=== PATIENT | male | born 1945 | race Caucasian/White ===

== ENCOUNTER 2017-03-16 11:37 | Observation (INO) | payer MEDICARE, BC ==
[~2017-03-16] VITALS: Ht 177.8 cm; Wt 88.6 kg
[2017-03-16] VITALS (9 sets, daily range): BP systolic 113–150; BP diastolic 68–101; PULSE 80–93; RESP 16–22; TEMP 97.8–98.1; O2SAT 94–98
--- NOTE | 2017-03-16 11:41 | PD ---
HPI Chief Complaint: near syncope Time Seen by Provider: 11:41 Travel History International Travel<30 days: No Contact w/Intl Traveler<30days: No Traveled to known affect area: No History of Present Illness HPI 71-year-old male came to the emergency room brought by EMS for a near syncopal episode while he was in the waiting room of his doctor's office. His blood glucose level was 120. His will arrive shortly afterwards gave the history that she was with him in the waiting room and patient got up to go to the bathroom when he seemed like he was going to pass out and started to fall. She caught him and prevented him from falling on the ground. She had to sit him down on the chair again. That's when the office staff called 911. Patient says that he feels fine right now. The says that this has happened couple times in past 1 year. He has resisted from coming to the emergency room in the past. Patient has history of pacemaker and defibrillator that was put in 2 and half years ago. His current cardiologists in [facility] is Dr. Caicedo. His last device check was 6 weeks ago and at that time they were told that everything was okay. Patient denies of any chest pain or shortness of breath. He denies of any true syncopal episode. Vital signs are relatively stable. [facility] Past Medical History Narrative Medical List of his past medical, surgical, social and family history is reviewed from the nursing note. Social History Tobacco Use: No Allergies-Medications (Allergen,Severity, Reaction): Coded Allergies: bacitracin (Verified Allergy, Mild, Rash, 03/16/17) neomycin (Verified Allergy, Mild, Rash, 03/16/17) polymyxin B (Verified Allergy, Mild, Rash, 03/16/17) Comments List of his allergies reviewed from the nursing note. Reported Meds & Prescriptions Reported Meds & Active Scripts Active Reported Crestor (Rosuvastatin Calcium) 10 Mg Tab 10 Mg PO HS Eliquis (Apixaban) 5 Mg Tab 5 Mg PO BID Oxycodone (Oxycodone HCl) 10 Mg Tab 10 Mg PO Q8HR Cymbalta DR (Duloxetine HCl) 30 Mg Capdr 30 Mg PO BID Doxycycline (Doxycycline (Monohydrate)) 100 Mg Cap 100 Mg PO BID Lasix (Furosemide) 20 Mg Tab 20-40 Mg PO DAILY STRENTH DEPENDS ON WEIGHT Amiodarone (Amiodarone HCl) 200 Mg Tab 200 Mg PO DAILY Bethanechol 25 Mg Tab 12.5 Mg PO QID Protonix (Pantoprazole Sodium) 40 Mg Tab 40 Mg PO DAILY Turmeric (Turmeric (Curcuma Longa) (Bulk) 100 % Pow PO DAILY 1 TEASPOONFUL MIXED INTO PASTE Green Tea (Green Tea [place] Extract) 1 Each Capsule 2 Cap PO DAILY Fish Oil 1200 mg ([place]-3 Fatty Acids) 360 Mg-1,200 Mg Cap 1,200 Mg PO DAILY Narrative Medication List of his home medications reviewed from the nursing note. Review of Systems Except as stated in HPI: all other systems reviewed are Neg Cardiovascular: Positive: Syncope Physical Exam Narrative GENERAL: Awake, alert, elderly, no obvious distress SKIN: Focused skin assessment warm/dry. HEAD: Atraumatic. Normocephalic. EYES: Pupils equal and round. No scleral icterus. No injection or drainage. ENT: No nasal bleeding or discharge. Mucous membranes pink and moist. NECK: Trachea midline. No JVD. CARDIOVASCULAR: Regular rate and rhythm. No murmur appreciated. RESPIRATORY: No accessory muscle use. Clear to auscultation. Breath sounds equal bilaterally. GASTROINTESTINAL: Abdomen soft, non-tender, nondistended. Hepatic and splenic margins not palpable. MUSCULOSKELETAL: No obvious deformities. No clubbing. No cyanosis. No edema. NEUROLOGICAL: Awake and alert. No obvious cranial nerve deficits. Motor grossly within normal limits. Normal speech. PSYCHIATRIC: Appropriate mood and affect; insight and judgment normal. Data Data Last Documented VS Orders Orders Electrocardiogram (03/16/17 11:44) Basic Metabolic Panel (Bmp) (03/16/17 11:44) Complete Blood Count With Diff (03/16/17 11:44) Magnesium (Mg) (03/16/17 11:44) Prothrombin Time / Inr (Pt) (03/16/17 11:44) Troponin I (03/16/17 11:44) Chest, Single Ap (03/16/17 11:44) Ecg Monitoring (03/16/17 11:44) Bilateral Bp Monitoring (03/16/17 11:44) Iv Access Insert/Monitor (03/16/17 11:44) Oximetry (03/16/17 11:44) Oxygen Administration (03/16/17 11:44) Sodium Chloride 0.9% Flush (Ns Flush) (03/16/17 11:45) Orthostatic Vital Signs (03/16/17 11:57) Admit Order (Ed Use Only) (03/16/17 13:07) Labs Laboratory Tests Test 03/16/17 11:45 03/16/17 11:46 White Blood Count 6.2 TH/MM3 Red Blood Count 5.91 MIL/MM3 Hemoglobin 17.1 GM/DL Hematocrit 51.6 % Mean Corpuscular Volume 87.2 FL Mean Corpuscular Hemoglobin 28.9 PG Mean Corpuscular Hemoglobin Concent 33.1 % Red Cell Distribution Width 14.7 % Platelet Count 180 TH/MM3 Mean Platelet Volume 8.5 FL Neutrophils (%) (Auto) 60.0 % Lymphocytes (%) (Auto) 23.4 % Monocytes (%) (Auto) 10.9 % Eosinophils (%) (Auto) 5.2 % Basophils (%) (Auto) 0.5 % Neutrophils # (Auto) 3.7 TH/MM3 Lymphocytes # (Auto) 1.4 TH/MM3 Monocytes # (Auto) 0.7 TH/MM3 Eosinophils # (Auto) 0.3 TH/MM3 Basophils # (Auto) 0.0 TH/MM3 CBC Comment DIFF FINAL Differential Comment Prothrombin Time 11.7 SEC Prothromb Time International Ratio 1.1 RATIO Blood Urea Nitrogen 17 MG/DL Creatinine 1.33 MG/DL Random Glucose 102 MG/DL Calcium Level 9.4 MG/DL Magnesium Level 2.2 MG/DL Sodium Level 140 MEQ/L Potassium Level 4.3 MEQ/L Chloride Level 106 MEQ/L Carbon Dioxide Level 26.1 MEQ/L Anion Gap 8 MEQ/L Estimat Glomerular Filtration Rate 53 ML/MIN Troponin I 0.07 NG/ML [facility] Medical Decision Making Medical Screen Exam Complete: Yes Emergency Medical Condition: Yes Medical Record Reviewed: Yes Interpretation(s) Twelve-lead EKG was reviewed by me. Paced rhythm. Heart rate of 90 bpm. Differential Diagnosis Arrhythmia, electrolyte abnormality, ACS Narrative Course 1:27 PM patient has slight elevation of his troponin. Chest x-ray suggestive of cardiomegaly. [employer] business process representative was called to interrogate the device and as per him patient has underlying A. fib and a flutter. His told me that patient had cardiac ablation done twice for his a flutter. Patient is also on amiodarone 200 mg twice a day among other medications. He is on Eliquis as well for his A. fib. However because of the elevated troponin under the circumstances I would like to admit him and have his cardiology consult. I discussed this with the residents who are the admitting team and they have accepted the admission. I explained this in details to the patient and his and answered all the questions to the best of my ability. Procedures EKG Prior to Arrival: Yes Diagnosis Primary Impression: Near syncope Additional Impressions: Elevated troponin I level Atrial fibrillation Qualified Codes: I48.1 - Persistent atrial fibrillation Admitting Information Admitting Physician Requests: Observation Mariangel Muller MD Mar 16, 2017 11:41
[2017-03-16] MEDS ORDERED: SODIUM CHLORIDE 0.9% FLUSH 10 ML FLUSH IVF PRN (11:45)
[2017-03-16 12:16] LABS: AUTOMATED NEUTROPHIL # 3.7 TH/MM3 (1.8-7.7); BASOPHIL % 0.5 % (0.0-2.0); EOSINOPHIL # 0.3 TH/MM3 (0-0.4); EOSINOPHIL % 5.2 % (0.0-4.0); HEMATOCRIT 51.6 % (39.0-51.0); HEMO FLAGS DIFF FINAL; LYMPH % 23.4 % (9.0-44.0); LYMPHOCYTE # 1.4 TH/MM3 (1.0-4.8); MEAN CELL VOLUME 87.2 FL (80.0-100.0); MEAN CORPUSCULAR HEMOGLOBIN 28.9 PG (27.0-34.0); MEAN CORPUSCULAR HGB CONC 33.1 % (32.0-36.0); MONO % 10.9 % (0.0-8.0); PLATELET COUNT 180 TH/MM3 (150-450); RED BLOOD COUNT 5.91 MIL/MM3 (4.50-5.90); RED CELL DISTRIBUTION WIDTH 14.7 % (11.6-17.2); WHITE BLOOD COUNT 6.2 TH/MM3 (4.0-11.0)
[2017-03-16 12:21] LABS: INTERNATIONAL NORMALIZED RATIO 1.1 RATIO; PROTHROMBIN TIME - PATIENT 11.7 SEC (9.8-11.6)
[2017-03-16] MEDS ORDERED: CYMB30CA PO (12:34)
[2017-03-16] MEDS ORDERED: APIX5TAB PO (12:34)
[2017-03-16] MEDS ORDERED: FURO1TAB62 PO (12:34)
[2017-03-16] MEDS ORDERED: OXYC-395 PO (12:34)
[2017-03-16] MEDS ORDERED: ROSU10 PO (12:34)
[2017-03-16] MEDS ORDERED: AMIO200T PO (12:34)
[2017-03-16] MEDS ORDERED: TURMPOW PO (12:34)
[2017-03-16] MEDS ORDERED: DOXY1CAP91 PO (12:34)
[2017-03-16] MEDS ORDERED: BETH25TA2 PO (12:34)
[2017-03-16] MEDS ORDERED: PROT40TA PO (12:34)
[2017-03-16] MEDS ORDERED: FISH1200 PO (12:34)
[2017-03-16] MEDS ORDERED: GREE150C PO (12:34)
[2017-03-16 12:37] LABS: BICARBONATE 26.1 MEQ/L (21.0-32.0); MAGNESIUM 2.2 MG/DL (1.5-2.5)
[2017-03-16 12:42] LABS: POTASSIUM 4.3 MEQ/L (3.5-5.1)
--- NOTE | 2017-03-16 12:50 | RADRPT ---
EXAM DATE/TIME: 03/16/2017 12:17 [facility] COMPARISON: No previous studies available for comparison. INDICATIONS : Syncope, rapid heart rate. MEDICAL HISTORY : Myocardial infarction. SURGICAL HISTORY : Pacemaker. ENCOUNTER: Initial ACUITY: 1 day PAIN SCORE: 0/10 LOCATION: Bilateral chest FINDINGS: Heart is mildly enlarged. Postsurgical changes following CABG are noted. AICD is in place. Mild pleural parenchymal opacity seen along the left heart border suggesting postsurgical scarring. Lungs are hypoaerated but otherwise clear. Stimulating device overlies the mid thoracic spine. CONCLUSION: Mild cardiomegaly status post open heart surgery. Mild pleural-parenchymal scarring left base. AICD. No acute cardiopulmonary process. Kaushik Johnson MD on March 16, 2017 at 12:47 Board Certified Radiologist. This report was verified electronically.
[2017-03-16] MEDS ORDERED: APIXABAN 5 MG TABLET PO SCH (13:30)
[2017-03-16] MEDS ORDERED: DOXYCYCLINE 100 MG PO SCH (13:30)
--- NOTE | 2017-03-16 13:58 | HHI.HP ---
[facility] Service Family Medicine Primary Care Physician Derrick aDi MD Admission Diagnosis near syncope, elevated troponin Diagnoses: International Travel<30 Days: No Contact w/Intl Traveler<30days: No Known Affected Area: No History of Present Illness 71 yr old M w/ PMHx of cardiac amyloidosis, pacemaker, defibrillator, complex regional pain syndrome, aortic valve replacement and CABG x2, presents to the ED for near syncope. Accompanied by , who provides most of the history. Reports that they were at the neurologists today for a check-up of his spinal stimulator when the witnessed patient nearly falling as he was trying to stand up and go to the bathroom. She was able to catch him during the incident. He denies LOC or head trauma. He reports feeling dizzy, sweaty, and wobbly for a couple of minutes during the episode. He also endorses feeling weak and loss of balance. He was immediately taken to the ER via EMT. He recently had an endoscopy done yesterday for GERD. He has been off his Eliquis since last . is a nurse and she noticed that patient had irregular rhythm upon auscultation. Patient endorses nausea and dry heaving. He reports that he has had similar near syncope episodes in the past, twice this year. He denies CP , SOB, palpitations, visions changes, abdominal pain, and VELÁSQUEZ. PCP is Dr. Derrick Dai Review of Systems Constitutional: COMPLAINS OF: Diaphoretic episodes, DENIES: Fever, Weight loss , Chills, Change in appetite Eyes: DENIES: Blurred vision Ears, nose, mouth, throat: DENIES: Hearing loss, Vertigo Respiratory: DENIES: Shortness of breath Cardiovascular: DENIES: Chest pain, Palpitations Gastrointestinal: COMPLAINS OF: Nausea, DENIES: Abdominal pain, Vomiting Genitourinary: DENIES: Dysuria Musculoskeletal: DENIES: Muscle aches Hematologic/lymphatic: DENIES: Bruising Neurologic: DENIES: Abnormal gait, Headache Past Family Social History Past Medical History Cardiac Amyloidosis Complex Regional pain syndrome in knees umbilical hernia CKD HTN Past Surgical History 2 ablations-2015 Heart Surgery 2002, aortic valve replacement and CABG x2 Cataract surgery Appendectomy Tonsillectomy Vasectomy Defibrillator placed in 2014 for sustained VTs Spinal cord Decompression 2000 Lumbar Laminectomy 1984 Allergies: Coded Allergies: bacitracin (Verified Allergy, Mild, Rash, 03/16/17) neomycin (Verified Allergy, Mild, Rash, 03/16/17) polymyxin B (Verified Allergy, Mild, Rash, 03/16/17) Family History Father at 69, Heart disease and non-Hodgkin's lymphoma Mother at 96 of uknown cause Sister- heart disease Social History Lives with in [facility], Retired Former smoker, quit 44 years ago, smoked for 15 years 1ppd Past Drinker Denies Illicit Drug Use Physical Exam Vital Signs Vital Signs Date Time Temp Pulse Resp B/P (MAP) Pulse Ox O2 Delivery O2 Flow Rate FiO2 03/16/17 12:06 90 16 116/75 (89) 90 16 119/77 (91) 101 16 124/78 (93) 03/16/17 12:00 90 16 116/75 (89) 97 Nasal Cannula 2.00 03/16/17 11:57 90 16 150/101 (117) 98 03/16/17 11:54 90 Nasal Cannula 2.00 03/16/17 11:54 90 16 150/101 (117) 98 Nasal Cannula 2.00 03/16/17 11:54 90 16 150/101 (117) 98 Nasal Cannula 2.00 Physical Exam GENERAL: pleasant elderly man, lying in bed, in NAD SKIN: No rashes, ecchymoses or lesions. Cool and dry. HEAD: Atraumatic. Normocephalic. EYES: PERRLA ENT: Throat clear NECK: Trachea midline. No JVD or lymphadenopathy. Supple, nontender, no meningeal signs. CARDIOVASCULAR: Regular rate and rhythm without murmurs, gallops, or rubs. No carotid bruits present. RESPIRATORY: Clear to auscultation. Breath sounds equal bilaterally. No wheezes , rales, or rhonchi. GASTROINTESTINAL: Abdomen soft, non-tender, nondistended. No hepato-splenomegaly , or palpable masses. No guarding. MUSCULOSKELETAL: Extremities without clubbing, cyanosis, or edema. NEUROLOGICAL: Awake and alert. Oriented x3, negative pronator drift, normal [id number] exam Laboratory Laboratory Tests Test 03/16/17 11:45 03/16/17 11:46 White Blood Count 6.2 Red Blood Count 5.91 Hemoglobin 17.1 Hematocrit 51.6 Mean Corpuscular Volume 87.2 Mean Corpuscular Hemoglobin 28.9 Mean Corpuscular Hemoglobin Concent 33.1 Red Cell Distribution Width 14.7 Platelet Count 180 Mean Platelet Volume 8.5 Neutrophils (%) (Auto) 60.0 Lymphocytes (%) (Auto) 23.4 Monocytes (%) (Auto) 10.9 Eosinophils (%) (Auto) 5.2 Basophils (%) (Auto) 0.5 Neutrophils # (Auto) 3.7 Lymphocytes # (Auto) 1.4 Monocytes # (Auto) 0.7 Eosinophils # (Auto) 0.3 Basophils # (Auto) 0.0 CBC Comment DIFF FINAL Differential Comment Prothrombin Time 11.7 Prothromb Time International Ratio 1.1 Blood Urea Nitrogen 17 Creatinine 1.33 Random Glucose 102 Calcium Level 9.4 Magnesium Level 2.2 Sodium Level 140 Potassium Level 4.3 Chloride Level 106 Carbon Dioxide Level 26.1 Anion Gap 8 Estimat Glomerular Filtration Rate 53 Troponin I 0.07 Result Diagram: 03/16/17 1145 03/16/17 1146 Caprini VTE Risk Assessment Caprini VTE Risk Assessment: Mod/High Risk (score >= 2) Caprini Risk Assessment Model Point Value = 1 Point Value = 2 Point Value = 3 Point Value = 5 Age 41-60 Minor surgery BMI > 25 kg/m2 Swollen legs Varicose veins or History of unexplained or recurrent spontaneous Oral contraceptives or hormone replacement Sepsis (< 1 month) Serious lung disease, including pneumonia (< 1 month) Abnormal pulmonary function Acute myocardial infarction Congestive heart failure (< 1 month) History of inflammatory bowel disease Medical patient at bed rest Age 61-74 Arthroscopic surgery Major open surgery (> 45 min) Laparoscopic surgery (> 45 min) Malignancy Confined to bed (> 72 hours) Immobilizing plaster cast Central venous access Age >= 75 History of VTE Family history of VTE Factor V Leiden Prothrombin [id number] Lupus anticoagulant Anticardiolipin antibodies Elevated serum homocysteine Heparin-induced thrombocytopenia Other congenital or acquired thrombophilia Stroke (< 1 month) Elective arthroplasty Hip, pelvis, or leg fracture Acute spinal cord injury (< 1 month) Prophylaxis Regimen Total Risk Factor Score Risk Level Prophylaxis Regimen 0-1 Low Early ambulation 2 Moderate Order ONE of the following: *Sequential Compression Device (SCD) *Heparin 5000 units SQ BID 3-4 Higher Order ONE of the following medications: *Heparin 5000 units SQ TID *Enoxaparin/Lovenox 40 mg SQ daily (WT < 150 kg, CrCl > 30 mL/min) *Enoxaparin/Lovenox 30 mg SQ daily (WT < 150 kg, CrCl > 10-29 mL/min) *Enoxaparin/Lovenox 30 mg SQ BID (WT < 150 kg, CrCl > 30 mL/min) AND/OR *Sequential Compression Device (SCD) 5 or more Highest Order ONE of the following medications: *Heparin 5000 units SQ TID (Preferred with Epidurals) *Enoxaparin/Lovenox 40 mg SQ daily (WT < 150 kg, CrCl > 30 mL/min) *Enoxaparin/Lovenox 30 mg SQ daily (WT < 150 kg, CrCl > 10-29 mL/min) *Enoxaparin/Lovenox 30 mg SQ BID (WT < 150 kg, CrCl > 30 mL/min) AND *Sequential Compression Device (SCD) Assessment and Plan Assessment and Plan 71 yr old man w/ PMHx of cardiac amyloid, CAD, aortic valve replacement, paroxysmal atrial flutter, paroxysmal ventricular tachycardia s/p AICD implant 2 years ago admitted for observation and work-up of near syncope. Code Status Full Code Discussed Condition With Dr. Roach and Dr. Lynne Problem List: (1) Near syncope ICD Codes: R55 - Syncope and collapse Status: Acute Plan: Several episodes in the past for near syncope. CXR revealed no acute cardiopulmonary process. * Cardiology consulted, appreciate recs * mildly elevated troponin level 0.07, repeat troponin in the AM * carotid US revealed calcified and noncalcified plaque in both carotid systems , no findings of significant stenosis * cardiac telemetry/monitoring * continue home meds: amiodarone, carvedilol, crestor * If patient is stable, possible discharge in the AM (2) Elevated troponin I level ICD Codes: R74.8 - Abnormal levels of other serum enzymes Status: Acute Plan: please see plan above (3) Atrial fibrillation ICD Codes: I48.91 - Unspecified atrial fibrillation Status: Acute Plan: Continue Eliquis 5mg PO daily (4) Nutrition, metabolism, and development symptoms ICD Codes: R63.8 - Other symptoms and signs concerning food and fluid intake Plan: Diet: Heart Healthy Fluids: not indicated at this time vitals q4h, monitor I & Os Problem Qualifiers (1) Atrial fibrillation: Qualified Codes: I48.1 - Persistent atrial fibrillation Yanelis Silva MD R1 Mar 16, 2017 13:58
[2017-03-16] MEDS ORDERED: ACETAMINOPHEN 325 MG TAB PO PRN (14:00)
[2017-03-16] MEDS ORDERED: SENNOSIDES 8.6 MG TAB PO PRN (14:00)
[2017-03-16] MEDS ORDERED: MAGNESIUM HYDROXIDE SUSP 30 ML CUP PO PRN (14:00)
[2017-03-16] MEDS ORDERED: NALOXONE HCL 0.4 MG/ML AMP IV PUSH PRN (14:00)
[2017-03-16] MEDS ORDERED: ONDANSETRON HCL 4 MG/2 ML VIAL IVP PRN (14:00)
[2017-03-16] MEDS ORDERED: LACTULOSE SYRUP 20 GM/30 ML CUP PO PRN (14:00)
[2017-03-16] MEDS ORDERED: BISACODYL 10 MG SUPP RECTAL PRN (14:00)
[2017-03-16] MEDS ORDERED: SODIUM CHLORIDE 0.9% FLUSH 10 ML FLUSH IV FLUSH PRN (14:00)
--- NOTE | 2017-03-16 14:03 | HHI.FPPN ---
Subjective Remarks Pt. seen, examined and discussed with Drs. Silva and Maged. This is a 71 yo male seen with his who was at his neurologist's office this a.m., he stood up and got nauseated and got woozy and felt unsteady. [place] like he was going to pass out. reports a previous similar episode but he refused to be checked out at that time. He did not lose consciousness and was helped to sit. With his cardiac history, he was recommended to come to the ED. He has reportedly been in atrial flutter for the past several days. is primary history provider, knows all his medications and doses. Known to have cardiac amyloidosis, has a pacer/ defibrillator and a spinal cord stimulator for chronic regional pain syndrome. Dr. Caicedo is his percussion instrument tuner. Dr. Meehan is his primary care doctor. He sees the PA at [facility]. They are originally from [facility]. See H&P for this admission for additional historical details, including past, family, social history and ROS at the time of admission. Objective Vitals Vital Signs Date Time Temp Pulse Resp B/P (MAP) Pulse Ox O2 Delivery O2 Flow Rate FiO2 03/16/17 12:06 90 16 116/75 (89) 90 16 119/77 (91) 101 16 124/78 (93) 03/16/17 12:00 90 16 116/75 (89) 97 Nasal Cannula 2.00 03/16/17 11:57 90 16 150/101 (117) 98 03/16/17 11:54 90 Nasal Cannula 2.00 03/16/17 11:54 90 16 150/101 (117) 98 Nasal Cannula 2.00 03/16/17 11:54 90 16 150/101 (117) 98 Nasal Cannula 2.00 Result Diagram: 03/16/17 1145 03/16/17 1146 Other Results Laboratory Tests Test 03/16/17 11:45 03/16/17 11:46 White Blood Count 6.2 TH/MM3 Red Blood Count 5.91 MIL/MM3 Hemoglobin 17.1 GM/DL Hematocrit 51.6 % Mean Corpuscular Volume 87.2 FL Mean Corpuscular Hemoglobin 28.9 PG Mean Corpuscular Hemoglobin Concent 33.1 % Red Cell Distribution Width 14.7 % Platelet Count 180 TH/MM3 Mean Platelet Volume 8.5 FL Neutrophils (%) (Auto) 60.0 % Lymphocytes (%) (Auto) 23.4 % Monocytes (%) (Auto) 10.9 % Eosinophils (%) (Auto) 5.2 % Basophils (%) (Auto) 0.5 % Neutrophils # (Auto) 3.7 TH/MM3 Lymphocytes # (Auto) 1.4 TH/MM3 Monocytes # (Auto) 0.7 TH/MM3 Eosinophils # (Auto) 0.3 TH/MM3 Basophils # (Auto) 0.0 TH/MM3 CBC Comment DIFF FINAL Differential Comment Prothrombin Time 11.7 SEC Prothromb Time International Ratio 1.1 RATIO Blood Urea Nitrogen 17 MG/DL Creatinine 1.33 MG/DL Random Glucose 102 MG/DL Calcium Level 9.4 MG/DL Magnesium Level 2.2 MG/DL Sodium Level 140 MEQ/L Potassium Level 4.3 MEQ/L Chloride Level 106 MEQ/L Carbon Dioxide Level 26.1 MEQ/L Anion Gap 8 MEQ/L Estimat Glomerular Filtration Rate 53 ML/MIN Troponin I 0.07 NG/ML Imaging Last 24 hours Impressions Chest X-Ray 03/16/17 1144 Signed Impressions: Service Date/Time: Thursday, March 16, 2017 12:17 - CONCLUSION: Mild cardiomegaly status post open heart surgery. Mild pleural-parenchymal scarring left base. AICD. No acute cardiopulmonary process. Kaushik Johnson MD Objective Remarks O. CONSTITUTIONAL/GEN: normally nourished, in NAD. Alert, pleasant and interactive. EYES: conjunctiva normal, PERRLA, EOMI. ENT: Mouth and pharynx normal. MM moist. NECK: thyroid midline, carotids symmetrical without bruit. LUNGS: clear A-P, respiratory effort is normal. CARDIOVASCULAR: Regular paced rhythm without murmur or gallop. No significant edema. GI/ABD: soft without masses, without organomegaly. : no CVA tenderness NEURO: No focal deficits. Finger to nose intact bilaterally. No tremor. DTRs intact. SKIN: color normal, no rashes noted. Very tanned extremities. HEME/LYMPH: no bruising, petechia or significant adenopathy MUSC: back is normal in appearance. Extremities are normal in appearance except for some superficial abrasions. PSYCH/MENTAL STATUS: Alert and oriented x 3. A/P Assessment and Plan 71 yo male with significant cardiac history with atrial flutter and an episode of near-syncope. Discharge Planning Case management consultation. Attending Attestation Patient seen and examined. Case reviewed and discussed with the resident team. Agree with plan of care as discussed with me and documented in the resident note. Matilde Roach MD Mar 16, 2017 14:03
--- NOTE | 2017-03-16 14:44 | RADRPT ---
EXAM DATE/TIME: 03/16/2017 14:02 [facility] COMPARISON: No previous studies available for comparison. INDICATIONS : Syncope. MEDICAL HISTORY : Hypercholesterolemia. Hypertension. Anxiety. Anticoagulant therapy. SURGICAL HISTORY : Tonsillectomy. Pacemaker. Appendectomy. CABG. Valve replacement. Spinal defib. Back surgeries. Vasect carter. ENCOUNTER: Initial ACUITY: 1 day PAIN SCORE: 0/10 LOCATION: Bilateral neck PEAK SYSTOLIC VELOCITIES (cm/sec): ICA/CCA RATIO: Right: 1.1 Left: 0.9 ICA: Right: 68 Left: 61 CCA: Right: 62 Left: 65 ECA: Right: 77 Left: 87 VERTEBRAL: Right: 32 antegrade Left: 34 antegrade Elevated flow velocities and ICA/CCA ratios have been found to correlate with increased degrees of vessel stenosis, calculated as percentage of diameter relative to a normal segment of distal ICA/CCA FINDINGS: RIGHT CAROTID: Calcified and noncalcified plaque in the carotid bulb extending into the internal. The waveforms are within normal limits. LEFT CAROTID: Minimal calcified and some noncalcified plaque in the carotid bulb extending up into the internal. T he waveforms are within normal limits. VERTEBRAL ARTERIES: Antegrade flow is seen in both vertebral arteries. MISCELLANEOUS: None. CONCLUSION: 1. Calcified and noncalcified plaque in both carotid systems. 2. However, no sonographic or Doppler findings of a hemodynamically significant stenosis. Antegrade f low in both vertebral arteries. Teddy Wilhelm MD on March 16, 2017 at 14:40 Board Certified Radiologist. This report was verified electronically.
--- NOTE | 2017-03-16 14:46 | EKG ---
Date Performed: 03/16/2017 Time Performed: 11:44:08 PTAGE: 71 years EKG: Baseline artifact present ELECTRONIC VENTRICULAR PACEMAKER ABNORMAL RHYTHM ECG INTERPRETATI ON BASED ON A DEFAULT AGE OF 40 YEARS NO PREVIOUS TRACING DOCTOR: Magdi Johnson Interpretating Date/Time 03/16/2017 14:45:20
[2017-03-16] MEDS ORDERED: PILL SPLITTER OTHER PRN (15:00)
[2017-03-16] MEDS: AMIODARONE 200 MG TAB PO SCH (15:15)
[2017-03-16] MEDS: DOCUSATE SODIUM 50 MG/SENNA 8.6 MG TAB PO SCH ×2 (15:15→21:52)
[2017-03-16] MEDS: SODIUM CHLORIDE 0.9% FLUSH 10 ML FLUSH IV FLUSH SCH ×2 (15:16→21:52)
[2017-03-16] MEDS: APIXABAN 5 MG TABLET PO SCH ×2 (16:52→21:52)
--- NOTE | 2017-03-16 17:44 | MB ---
cc: BENNY GARCIA HANSCY M.D. DATE OF CONSULTATION 03/16/17 REASON FOR CONSULTATION Near-syncope, abnormal troponin level HISTORY OF PRESENT ILLNESS The patient is a 71-year-old white male, followed in our office by Dr. Noam Caicedo, with a history of biopsy-proven cardiac amyloidosis, coronary artery disease, aortic valve disease, paroxysmal atrial flutter, paroxysmal ventricular tachycardia, esophageal strictures who was brought to the hospital after a near-syncopal episode. The patient was in his primary care physician's office today when he felt nauseated and felt the need to vomit. He tried to get up to go the bathroom but subsequently felt very lightheaded. He never lost consciousness completely. The episode lasted a few minutes. The patient states he had upper endoscopy recently with dilation of an esophageal stricture. He denies palpitations, angina, shortness of breath, pedal edema, paroxysmal nocturnal dyspnea, diarrhea, fevers. His oral intake recently has been relatively normal. PAST MEDICAL HISTORY 1. Cardiac amyloid demonstrated by endomyocardial biopsy 2014. 2. Coronary artery and aortic valve disease status post two-vessel bypass surgery and aortic valve replacement 10/14/2001. This was done in [place], [place]. The valve was a 25 mm porcine aortic valve prosthesis. The two bypass grafts were a left internal mammary artery to the LAD and vein graft to the ramus intermedius. His last heart catheterization was 2014 showing widely patent bypass grafts. 3. Paroxysmal atrial flutter status post ablation approximately 2012. 4. Ventricular tachycardia status post dual-chamber AICD implantation (St. Lexx) July 2014. 5. History of esophageal strictures status post dilation. 6. Reduced ejection fraction of 40-45% associated with severe concentric left ventricular hypertrophy by echo approximately 2014. MEDICATIONS Cardiac medications at home 1. Crestor 10 mg q.h.s. 2. Eliquis 5 mg b.i.d. 3. Furosemide 20-40 mg daily. 4. Amiodarone 200 mg daily. ALLERGIES NEOMYCIN POLYMYCIN BACITRACIN FAMILY HISTORY Noncontributory. SOCIAL HISTORY The patient denies any history of alcohol or tobacco abuse. REVIEW OF SYSTEMS As in the history of present illness otherwise negative or noncontributory. He also denies headache, visual changes, abdominal pain, melena, dyspepsia, bright red blood per rectum. PHYSICAL EXAMINATION VITAL SIGNS: His blood pressure 119/76 with a pulse of 93, respirations 22. GENERAL: He is a well-developed, well-nourished white male in no acute distress, HEENT: Jugular venous pressure is normal. Carotid pulses are 2+ bilaterally and without bruits. CHEST: Examination of the chest reveals clear lung theodore. CARDIAC: He has a regular rhythm and rate without S3, S4 or murmur. ABDOMEN: He has a soft, nontender abdomen. Bowel sounds are present. There is no definite hepatosplenomegaly. EXTREMITIES: No clubbing, cyanosis or edema. LABORATORY DATA Potassium 4.3, BUN 17, creatinine 1.33, troponin 0.07, INR 1.1, WBC 6.2, hemoglobin 17.1, platelets 180. IMAGING STUDIES Chest x-ray shows no acute disease. CARDIOLOGY STUDIES EKG shows atrial sensed ventricular paced rhythm. IMPRESSION Near syncopal episode in this 71-year-old white male with a history of cardiac amyloid, coronary artery disease, aortic valve replacement, paroxysmal atrial flutter, paroxysmal ventricular tachycardia status post AICD implant two years ago. Interrogation of his AICD does show he has had recurrent atrial flutter for the past five days, although with no elevations in his heart rate. There has been no evidence for recent ventricular tachyarrhythmias. I suspect his episode of near syncope may have been vasovagal mediated. He was nauseated at the time of the event. The atrial flutter in and of itself should not have caused near syncope, and he has been in atrial flutter a few days now. Apparently, his Eliquis has been held recently for recent GI endoscopic procedures. His thromboembolic risk is at least moderately elevated. Although he is asymptomatic with the recurrent atrial flutter, ablation could be considered in the future, particularly with his cardiac amyloid and reduced ejection fraction. The slightly elevated troponin level is nonspecific. There is no other evidence for acute coronary syndrome. He has had no recent angina. Apparently, cardiac catheterization a couple years ago showed widely patent bypass grafts. There is no evidence by exam for aortic valve replacement dysfunction. RECOMMENDATIONS 1. Check another set of cardiac enzymes in the morning. 2. If he remains clinically stable, consider discharge tomorrow. 3. We will review his office records to see if he has had any recent echocardiogram. MD THERESA Spring/ /4:26 PM /5:05 PM [email or web address]
[2017-03-16] MEDS: BETHANECHOL CHL 25 MG TAB PO SCH ×2 (19:35→21:51)
[2017-03-16] MEDS ORDERED: NON-FORMULARY DRUG (Rosuvastatin (Crestor) 10 MG) PO SCH (21:00)
[2017-03-16] MEDS ORDERED: ATORVASTATIN 20 MG TAB PO SCH (21:00)
[2017-03-16] MEDS: DOXYCYCLINE HYCLATE 100 MG CAP PO SCH (21:51)
[2017-03-16] MEDS: CARVEDILOL 3.125 MG TAB PO SCH (21:51)
[2017-03-17 00:06] VITALS: BP 137/88; PULSE 89; RESP 18; TEMP 97.7; O2SAT 95
[2017-03-17 03:23] VITALS: BP 130/83; PULSE 91; RESP 18; TEMP 97.4; O2SAT 95
[2017-03-17 03:44] VITALS: PULSE 90
--- NOTE | 2017-03-17 05:12 | EKG ---
Date Performed: 03/16/2017 Time Performed: 18:05:24 PTAGE: 71 years EKG: ELECTRONIC VENTRICULAR PACEMAKER ABNORMAL RHYTHM ECG No significant change from prior elect rocardiogram. PREVIOUS TRACING : 03/16/2017 11.44 DOCTOR: Magdi Johnson Interpretating Date/Time 03/17/2017 05:11:24
--- NOTE | 2017-03-17 07:36 | PD.CARD.PN ---
Subjective Subjective Remarks No CP, dyspnea, palpitations, dizziness, near syncope. Slept well. No nausea. Objective Medications Item Value Date Time Atorvastatin 20 mg 03/16/172099 Calcium HS/PO 03/16/172150 (Lipitor) Carvedilol 3.125 mg 03/16/17 2100 (Coreg) Q12HR/PO 03/16/172150 Apixaban 5 mg 03/16/17 1600 (Eliquis) BID/PO 03/16/172151 Amiodarone HCl 200 mg 03/16/17 1400 (Cordarone) DAILY/PO 03/16/171514 Current Medications Medications (Trade) Dose Ordered Sig/Rupal Route Start Time Stop Time Status Last Admin (Urecholine) 12.5 mg QID PO 03/16/17 18:00 03/16/17 21:51 (Cordarone) 200 mg DAILY PO 03/16/17 14:00 03/16/17 15:15 (NS Flush) 2 ml UNSCH PRN IV FLUSH 03/16/17 14:00 (NS Flush) 2 ml BID IV FLUSH 03/16/17 14:00 03/16/17 21:52 (Tylenol) 650 mg Q4H PRN PO 03/16/17 14:00 (Zofran Inj) 4 mg Q6H PRN IVP 03/16/17 14:00 (Narcan Inj) 0.4 mg UNSCH PRN IV PUSH 03/16/17 14:00 (Marleen-Colace) 1 tab BID PO 03/16/17 14:00 03/16/17 21:52 (Milk Of Magnesia Liq) 30 ml Q12H PRN PO 03/16/17 14:00 (Senokot) 17.2 mg Q12H PRN PO 03/16/17 14:00 (Dulcolax Supp) 10 mg DAILY PRN RECTAL 03/16/17 14:00 (Lactulose Liq) 30 ml DAILY PRN PO 03/16/17 14:00 (Pill Splitter) 1 ea UNSCH PRN OTHER 03/16/17 15:00 (Lipitor) 20 mg HS PO 03/16/17 21:00 03/16/17 21:51 (Vibramycin) 100 mg BID PO 03/16/17 21:00 03/16/17 21:51 (Eliquis) 5 mg BID PO 03/16/17 16:00 03/16/17 21:52 (Coreg) 3.125 mg Q12HR PO 03/16/17 21:00 03/16/17 21:51 (Roxicodone) 10 mg Q8H PRN PO 03/16/17 22:30 03/16/17 23:05 Vital Signs / I&O Vital Signs Date Time Temp Pulse Resp B/P (MAP) Pulse Ox O2 Delivery O2 Flow Rate FiO2 03/17/17 03:44 90 03/17/17 03:23 97.4 91 18 130/83 (99) 95 03/17/17 00:33 18 03/17/17 00:06 97.7 89 18 137/88 (104) 95 03/16/17 19:50 90 03/16/17 19:28 98.1 93 18 113/73 (86) 94 03/16/17 17:05 80 03/16/17 14:41 97.8 93 22 119/76 (90) 98 03/16/17 13:59 90 16 130/68 (88) 97 Nasal Cannula 2.00 03/16/17 12:06 90 16 116/75 (89) 90 16 119/77 (91) 101 16 124/78 (93) 03/16/17 12:00 90 16 116/75 (89) 97 Nasal Cannula 2.00 03/16/17 11:57 90 16 150/101 (117) 98 03/16/17 11:54 90 Nasal Cannula 2.00 03/16/17 11:54 90 16 150/101 (117) 98 Nasal Cannula 2.00 03/16/17 11:54 90 16 150/101 (117) 98 Nasal Cannula 2.00 I/O 03/16/17 03/16/17 03/16/17 03/17/17 03/17/17 03/17/17 07:00 15:00 23:00 07:00 15:00 23:00 Intake Total 480 ml Output Total 550 ml Balance -550 ml 480 ml Intake Oral 480 ml Output Urine Total 550 ml Physical Exam GENERAL: Well developed, well nourished. No acute distress. HEENT: Jugular venous pressure is normal. CHEST: Lungs clear to auscultation bilaterally. Unlabored respiratory effort. CARDIAC: Regular rate and rhythm without S3, S4, or murmur. ABDOMEN: Soft, nontender, no hepatosplenomegaly. Bowel sounds present. EXTREMITIES: No clubbing, cyanosis, or edema. Laboratory Laboratory Tests Test 03/16/17 11:45 03/16/17 11:46 White Blood Count 6.2 TH/MM3 Red Blood Count 5.91 MIL/MM3 Hemoglobin 17.1 GM/DL Hematocrit 51.6 % Mean Corpuscular Volume 87.2 FL Mean Corpuscular Hemoglobin 28.9 PG Mean Corpuscular Hemoglobin Concent 33.1 % Red Cell Distribution Width 14.7 % Platelet Count 180 TH/MM3 Mean Platelet Volume 8.5 FL Neutrophils (%) (Auto) 60.0 % Lymphocytes (%) (Auto) 23.4 % Monocytes (%) (Auto) 10.9 % Eosinophils (%) (Auto) 5.2 % Basophils (%) (Auto) 0.5 % Neutrophils # (Auto) 3.7 TH/MM3 Lymphocytes # (Auto) 1.4 TH/MM3 Monocytes # (Auto) 0.7 TH/MM3 Eosinophils # (Auto) 0.3 TH/MM3 Basophils # (Auto) 0.0 TH/MM3 CBC Comment DIFF FINAL Differential Comment Prothrombin Time 11.7 SEC Prothromb Time International Ratio 1.1 RATIO Blood Urea Nitrogen 17 MG/DL Creatinine 1.33 MG/DL Random Glucose 102 MG/DL Calcium Level 9.4 MG/DL Magnesium Level 2.2 MG/DL Sodium Level 140 MEQ/L Potassium Level 4.3 MEQ/L Chloride Level 106 MEQ/L Carbon Dioxide Level 26.1 MEQ/L Anion Gap 8 MEQ/L Estimat Glomerular Filtration Rate 53 ML/MIN Troponin I 0.07 NG/ML Imaging Last 24 hours Impressions Chest X-Ray 03/16/17 1144 Signed Impressions: Service Date/Time: Thursday, March 16, 2017 12:17 - CONCLUSION: Mild cardiomegaly status post open heart surgery. Mild pleural-parenchymal scarring left base. AICD. No acute cardiopulmonary process. Kaushik Johnson MD Assessment and Plan Problem List: (1) Near syncope ICD Codes: R55 - Syncope and collapse Status: Acute Plan: Stable overnight. No recurrent dizziness or near syncope. Suspect his episode of near syncope was vasovagal mediated event. Doubt recurrent paroxysmal atrial flutter caused the near syncope. No ventricular tachyarrhythmias seen on ICD interrogation. OK to discharge today if repeat troponin this morning not significantly elevated. (2) Paroxysmal atrial flutter ICD Codes: I48.92 - Unspecified atrial flutter Status: Acute Plan: ICD interrogation shows recurrent atrial flutter past 6 days. History of ablation about 3 years ago. Eliquis resumed. Follow up in office with Dr. Caicedo. Would consider repeat ablation as loss of sufficient atrial contribution to ventricular filling in the setting of his cardiac amyloid and severe LVH may result in considerable drop in cardiac output. (3) CAD (coronary artery disease) ICD Codes: I25.10 - Atherosclerotic heart disease of [place] coronary artery without angina pectoris Status: Chronic Plan: Clinically stable. No recent angina. History of CABG/AVR many years ago. Await repeat troponin level; if remains only slightly elevated, recommend no additional w/u. (4) Cardiac amyloidosis ICD Codes: E85.4 - Organ-limited amyloidosis; I43 - Cardiomyopathy in diseases classified elsewhere Status: Chronic Plan: Overall stable. No recent problems with CHF. Rec beta queenie therapy. Carvedilol begun yesterday. (5) History of aortic valve replacement ICD Codes: Z95.2 - Presence of prosthetic heart valve Status: Chronic Code Status full code Discussed Condition With patient and Problem Qualifiers (1) CAD (coronary artery disease): Qualified Codes: I25.10 - Atherosclerotic heart disease of [place] coronary artery without angina pectoris Navin Posey MD Mar 17, 2017 07:36
[2017-03-17 08:00] VITALS: BP 112/82; PULSE 90; RESP 18; TEMP 97.4; O2SAT 95
[2017-03-17] MEDS: AMIODARONE 200 MG TAB PO SCH (08:57)
[2017-03-17] MEDS: SODIUM CHLORIDE 0.9% FLUSH 10 ML FLUSH IV FLUSH SCH (08:57)
[2017-03-17] MEDS: BETHANECHOL CHL 25 MG TAB PO SCH (08:58)
[2017-03-17] MEDS: APIXABAN 5 MG TABLET PO SCH (08:58)
[2017-03-17] MEDS: DOCUSATE SODIUM 50 MG/SENNA 8.6 MG TAB PO SCH (08:58)
[2017-03-17] MEDS: DOXYCYCLINE HYCLATE 100 MG CAP PO SCH (08:58)
[2017-03-17] MEDS: CARVEDILOL 3.125 MG TAB PO SCH (08:58)
[2017-03-17] MEDS ORDERED: AMIODARONE 200 MG TAB PO SCH (09:00)
--- NOTE | 2017-03-17 09:30 | EKG ---
Date Performed: 03/17/2017 Time Performed: 00:15:03 PTAGE: 71 years EKG: Baseline artifact present ELECTRONIC VENTRICULAR PACEMAKER ABNORMAL RHYTHM ECG No significa nt change from prior electrocardiogram. PREVIOUS TRACING : 03/16/2017 18.05 DOCTOR: Magdi Johnson Interpretating Date/Time 03/17/2017 09:29:11
[2017-03-17 09:34] LABS: AUTOMATED NEUTROPHIL # 4.4 TH/MM3 (1.8-7.7); BASOPHIL % 0.6 % (0.0-2.0); EOSINOPHIL # 0.3 TH/MM3 (0-0.4); EOSINOPHIL % 4.9 % (0.0-4.0); HEMATOCRIT 49.7 % (39.0-51.0); HEMO FLAGS DIFF FINAL; LYMPH % 20.6 % (9.0-44.0); LYMPHOCYTE # 1.4 TH/MM3 (1.0-4.8); MEAN CORPUSCULAR HEMOGLOBIN 29.7 PG (27.0-34.0); MEAN CORPUSCULAR HGB CONC 33.7 % (32.0-36.0); MONO % 9.5 % (0.0-8.0); NEUT % 64.4 % (16.0-70.0); PLATELET COUNT 151 TH/MM3 (150-450); RED BLOOD COUNT 5.65 MIL/MM3 (4.50-5.90); RED CELL DISTRIBUTION WIDTH 14.6 % (11.6-17.2); WHITE BLOOD COUNT 6.8 TH/MM3 (4.0-11.0)
[2017-03-17 10:04] LABS: ANION GAP 5 MEQ/L (5-15); AST (GOT) 34 U/L (15-37); BICARBONATE 29.5 MEQ/L (21.0-32.0); BLOOD UREA NITROGEN 17 MG/DL (7-18); CHLORIDE 106 MEQ/L (98-107); GLOMERULAR FILTRATION RATE 54 ML/MIN (>89); POTASSIUM 4.3 MEQ/L (3.5-5.1); SODIUM (NA) 140 MEQ/L (136-145)
[2017-03-17 10:11] LABS: ALKALINE PHOSPHATASE 146 U/L (45-117); ALT (GPT) 52 U/L (12-78); TOTAL BILIRUBIN ADULT 0.7 MG/DL (0.2-1.0)
[2017-03-17 10:12] LABS: CREATINE KINASE 77 U/L (39-308)
--- NOTE | 2017-03-17 10:41 | HHI.DCPOC ---
Discharge Care Plan Diagnosis: (1) Near syncope (2) Elevated troponin I level (3) Cardiac amyloidosis (4) Paroxysmal atrial flutter Goals to Promote Your Health * To prevent worsening of your condition and complications * To maintain your health at the optimal level Directions to Meet Your Goals Take your medications as prescribed Follow your dietary instruction Follow activity as directed Keep your appointments as scheduled Take your immunizations and boosters as scheduled If your symptoms worsen call your PCP, if no PCP go to Urgent Care Center or Emergency Room Smoking is Dangerous to Your Health. Avoid second hand smoke Call the 24-hour hour crisis hotline for domestic abuse at Yanelis Silva MD R1 Mar 17, 2017 10:41
[2017-03-17 11:04] VITALS: PULSE 91
--- NOTE | 2017-03-17 11:46 | HHI.FPPN ---
Subjective Remarks No acute events overnight. Patient reports feeling better this morning. He is "ready to go home." Afebrile. VSS. He denies lightheadedness, fatigue, CP, and SOB. (Yanelis Silva MD R1) Objective Vitals Vital Signs Date Time Temp Pulse Resp B/P (MAP) Pulse Ox O2 Delivery O2 Flow Rate FiO2 03/17/17 11:04 91 03/17/17 08:00 97.4 90 18 112/82 (92) 95 03/17/17 03:44 90 03/17/17 03:23 97.4 91 18 130/83 (99) 95 03/17/17 00:33 18 03/17/17 00:06 97.7 89 18 137/88 (104) 95 03/16/17 19:50 90 03/16/17 19:28 98.1 93 18 113/73 (86) 94 03/16/17 17:05 80 03/16/17 14:41 97.8 93 22 119/76 (90) 98 03/16/17 13:59 90 16 130/68 (88) 97 Nasal Cannula 2.00 03/16/17 12:06 90 16 116/75 (89) 90 16 119/77 (91) 101 16 124/78 (93) 03/16/17 12:00 90 16 116/75 (89) 97 Nasal Cannula 2.00 03/16/17 11:57 90 16 150/101 (117) 98 03/16/17 11:54 90 Nasal Cannula 2.00 03/16/17 11:54 90 16 150/101 (117) 98 Nasal Cannula 2.00 03/16/17 11:54 90 16 150/101 (117) 98 Nasal Cannula 2.00 I/O 03/16/17 03/16/17 03/16/17 03/17/17 03/17/17 03/17/17 07:00 15:00 23:00 07:00 15:00 23:00 Intake Total 480 ml Output Total 550 ml Balance -550 ml 480 ml Intake Oral 480 ml Output Urine Total 550 ml (Yanelis Silva MD R1) Result Diagram: 03/17/1749 03/17/17 0849 Objective Remarks O. GENERAL: pleasant, lying in bed, in NAD SKIN: Warm and dry. HEAD: Normocephalic. EYES: No scleral icterus. No injection or drainage. NECK: Supple, trachea midline. No JVD or lymphadenopathy. CARDIOVASCULAR: Regular rate and rhythm without murmurs, gallops, or rubs. RESPIRATORY: Breath sounds equal bilaterally. No accessory muscle use. GASTROINTESTINAL: Abdomen soft, non-tender, nondistended. EXTREMITIES: No cyanosis, or edema. NEUROLOGICAL: Awake, alert, and oriented x 3. Non-focal. (Yanelis Silva MD R1) A/P Assessment and Plan 71 yr old man w/ PMHx of cardiac amyloid, CAD, aortic valve replacement, paroxysmal atrial flutter, paroxysmal ventricular tachycardia s/p AICD implant 2 years ago admitted for observation and work-up of near syncope. Discharge Planning Case management consultation. (Yanelis Silva MD R1) Attending Attestation Patient seen and examined. Case reviewed and discussed with the resident team. Agree with plan of care as discussed with me and documented in the resident note. (Matilde Roach MD) Problem List: (1) Near syncope ICD Codes: R55 - Syncope and collapse Status: Acute Plan: Several episodes in the past for near syncope. CXR revealed no acute cardiopulmonary process. * Cardiology consulted, appreciate recs * mildly elevated troponin level 0.07, repeat troponin 0.09 this AM * carotid US revealed calcified and noncalcified plaque in both carotid systems , no findings of significant stenosis * continue home meds: amiodarone, carvedilol, crestor * troponin not significantly elevated, patient is stable for discharge. Most likely vasovagal syncope. Will follow-up with nurse plastics. (2) Elevated troponin I level ICD Codes: R74.8 - Abnormal levels of other serum enzymes Status: Acute Plan: please see plan above (3) Atrial fibrillation ICD Codes: I48.91 - Unspecified atrial fibrillation Status: Acute Plan: Continue Eliquis 5mg PO daily (4) Nutrition, metabolism, and development symptoms ICD Codes: R63.8 - Other symptoms and signs concerning food and fluid intake Plan: Diet: Heart Healthy Fluids: not indicated at this time vitals q4h, monitor I & Os (Yanelis Silva MD R1) Problem Qualifiers (1) Atrial fibrillation: Qualified Codes: I48.1 - Persistent atrial fibrillation Yanelis Silva MD R1 Mar 17, 2017 11:46 Matilde Roach MD Mar 17, 2017 12:06
== END 2017-03-17 11:42 | disposition home or self-care (01) ==
LOC: NEPC 11:37 → NEDA 13:09 → NEPGCP 14:05
PROVIDERS: ADMIT Family Medicine; ATTEND Family Medicine
DX: R55 Syncope and collapse (principal); I48.1 Persistent atrial fibrillation; I48.92 Unspecified atrial flutter; E85.4 Organ-limited amyloidosis; I43 Cardiomyopathy in diseases classified elsewhere; I25.10 Atherosclerotic heart disease of native coronary artery without angina pectoris; I12.9 Hypertensive chronic kidney disease with stage 1 through stage 4 chronic kidney disease, or unspecified chronic kidney disease; N18.9 Chronic kidney disease, unspecified; K21.9 Gastro-esophageal reflux disease without esophagitis; K22.2 Esophageal obstruction; Z95.0 Presence of cardiac pacemaker; Z95.1 Presence of aortocoronary bypass graft; Z95.3 Presence of xenogenic heart valve; Z87.891 Personal history of nicotine dependence
CPT/HCPCS: 71010; 80048; 80053; 82550; 83735; 84484; 85025; 85610; 93005; 93880; 99285; G0378

== ENCOUNTER 2017-05-04 11:34 | Day surgery (SDC) | payer MEDICARE, BC ==
[~2017-05-04] VITALS: Ht 177.8 cm; Wt 91.5 kg
[~2017-05-04 11:34] MED LIST: AMIO200T PO; APIX5TAB PO; BETH25TA2 PO; CYMB30CA PO; DOXY1CAP91 PO; FISH1200 PO; FURO1TAB62 PO; GREE150C PO; OXYC-395 PO; PROT40TA PO; ROSU10 PO; TURMPOW PO
[2017-05-04] MEDS ORDERED: CHLORHEXIDINE GLUCONATE 2 % 1 PACK (2 CLOTHS) TOPICAL PRN (12:00)
[2017-05-04] MEDS ORDERED: LACTATED RINGER'S 1000 ML IV PRN (12:00)
[2017-05-04] MEDS ORDERED: PROPOFOL 200 MG/20 ML AMP IV ONE (12:00)
[2017-05-04] MEDS ORDERED: NEOSTIGMINE 5 MG/5 ML SYRINGE IV PUSH ONE (12:00)
[2017-05-04] MEDS ORDERED: PHENYLEPH/NS 1000 MCG/10 ML SYR IV ONE (12:00)
[2017-05-04] MEDS ORDERED: GLYCOPYRROLATE 1 MG/5 ML SYRINGE IV PUSH ONE (12:00)
[2017-05-04] MEDS ORDERED: LIDOCAINE HCL 1% PF 5 ML SYRINGE OTHER ONE (12:00)
[2017-05-04] MEDS ORDERED: ONDANSETRON HCL 4 MG/2 ML VIAL IV ONE (12:00)
[2017-05-04] MEDS ORDERED: SODIUM CHLORID 0.9% 500 ML IV PRN (12:00)
[2017-05-04] MEDS: SODIUM CHLORID 0.9% 500 ML INJ 500 ML IV SCH (12:00)
[2017-05-04] MEDS ORDERED: METOPROLOL TARTRATE 25 MG TAB PO PRN (12:00)
[2017-05-04] MEDS ORDERED: POVIDONE IODINE 5% (ANTISEPSIS KIT) 4 APPLICATIONS EACH NARE PRN (12:00)
[2017-05-04] MEDS ORDERED: LORazepam 1 MG TAB SL SCH (12:00)
[2017-05-04] MEDS ORDERED: ROCURONIUM INJ 50 MG/5 ML SYRINGE IV PUSH ONE (12:00)
[2017-05-04] MEDS ORDERED: DEXAMETHASONE SOD PHOS 4 MG/ML VIAL IV ONE (12:00)
[2017-05-04 12:37] VITALS: BP 145/91; PULSE 111; RESP 17; TEMP 98.1; O2SAT 99
[2017-05-04] MEDS ORDERED: LISI-519 PO (12:52)
[2017-05-04] MEDS ORDERED: VITATAB43 PO (12:52)
[2017-05-04] MEDS ORDERED: FURO1TAB60 PO (12:52)
[2017-05-04 13:01] LABS: AUTOMATED NEUTROPHIL # 4.6 TH/MM3 (1.8-7.7); BASOPHIL % 0.5 % (0.0-2.0); EOSINOPHIL # 0.3 TH/MM3 (0-0.4); EOSINOPHIL % 4.4 % (0.0-4.0); HEMATOCRIT 51.8 % (39.0-51.0); HEMOGLOBIN 17.2 GM/DL (13.0-17.0); LYMPH % 20.9 % (9.0-44.0); LYMPHOCYTE # 1.5 TH/MM3 (1.0-4.8); MEAN CELL VOLUME 87.8 FL (80.0-100.0); MEAN CORPUSCULAR HEMOGLOBIN 29.1 PG (27.0-34.0); MEAN CORPUSCULAR HGB CONC 33.2 % (32.0-36.0); MEAN PLATELET VOLUME 8.9 FL (7.0-11.0); MONO % 8.2 % (0.0-8.0); MONOCYTE # 0.6 TH/MM3 (0-0.9); PLATELET COUNT 190 TH/MM3 (150-450)
[2017-05-04 13:13] LABS: INTERNATIONAL NORMALIZED RATIO 1.1 RATIO; PROTHROMBIN TIME - PATIENT 11.6 SEC (9.8-11.6)
[2017-05-04 13:20] LABS: BICARBONATE 31.8 MEQ/L (21.0-32.0); CALCIUM 10.3 MG/DL (8.5-10.1); CREATININE 1.61 MG/DL (0.60-1.30)
[2017-05-04] MEDS ORDERED: ISOPROTERENOL HCL 1 MG/5 ML AMP ONE (14:44)
[2017-05-04] MEDS ORDERED: PROTAMINE SULFATE 50 MG/5 ML VIAL ONE (14:44)
[2017-05-04] MEDS ORDERED: HEPARIN SODIUM - IV 10,000 UNITS/10 ML VIAL ONE (14:44)
[2017-05-04] MEDS ORDERED: HEPARIN-D5W 25,000 U/250 ML 250 ML ONE (14:44)
[2017-05-04] MEDS ORDERED: HEPARIN-NS/PF INJ 1,500 ML ONE (15:10)
[2017-05-04] MEDS ORDERED: LEVOFLOXACIN 500 MG PREMIX INJ 100 ML IV ONE ×2 (15:27→20:15)
[2017-05-04] MEDS ORDERED: BACITRACIN OINT 0.9 GM PKT TOP ONE ×2 (15:30→18:45)
[2017-05-04] MEDS ORDERED: oxyCODONE/ACETAMINOPHEN 5 MG/325 MG TAB PO PRN ×4 (15:30→18:45)
[2017-05-04] MEDS ORDERED: LIDOCAINE HCL 1% 50 ML VIAL INFIL PRN ×2 (15:30→18:45)
[2017-05-04] MEDS ORDERED: SODIUM CHLOR 0.9% 250 ML INJ 250 ML IV PRN ×2 (15:30→18:45)
[2017-05-04] MEDS ORDERED: ATROPINE SULFATE 1 MG/ML VIAL IV PUSH PRN ×2 (15:30→18:45)
[2017-05-04] MEDS ORDERED: LORazepam 2 MG/ML VIAL IV PUSH PRN ×2 (15:30→18:45)
[2017-05-04] MEDS ORDERED: ONDANSETRON HCL 4 MG/2 ML VIAL IV PUSH PRN ×2 (15:30→18:45)
[2017-05-04] MEDS ORDERED: FUROSEMIDE 40 MG/4 ML VIAL ONE (18:44)
--- NOTE | 2017-05-04 18:51 | PD.CARD ---
Atrial Fibrillation Ablation PROCEDURE DATE: May 04, 2017 PROCEDURES PERFORMED: 1. Electrophysiology study on Isuprel infusion 2. CS cannulation 3. 3-D mapping 4. Transseptal approach 5. Right and left heart catheterization 6. Intracardiac echo 7. Radiofrequency ablation of atrial fibrillation 8. Pulmonary vein isolation 9. Posterior wall ablation 10. Mitral valve isolation 11. Mitral line creation 12. Left atrial tachycardia ablation 13. Roof line creation 14. Floor line creation 15. Anterior wall ablation 16. Cardioversion INDICATIONS FOR THE PROCEDURE Mr. Saldana is a 71-year-old male with atrial fibrillation, congestive heart failure, very symptomatic referred for electrophysiology study and ablation. The risks, the nature and the benefits of the procedure were clearly stated to him. The risks include pneumothorax, cardiac perforation, stroke, need for open heart surgery and even . The patient understood and agreed to proceed. DESCRIPTION OF THE PROCEDURE IN DETAIL As written informed consent was obtained prior to esophageal echocardiogram, the patient was kept on the table where he was prepped and draped in the usual sterile fashion. Conscious sedation was initiated and maintained throughout the procedure by the anesthesiologist. Once sedation was verified, the right and left inguinal areas were anesthetized with 2% Xylocaine. Using modified Seldinger technique, the left femoral vein was cannulated on three occasions, three guidewires were advanced. Over the wire a 6, 7 and a 10-Vietnamese Hemaquet were advanced. Then the left femoral artery was cannulated on one occasion, one guidewire was advanced. Over the wire a 4-Vietnamese Hemaquet was advanced. Then the right femoral vein was cannulated on one occasion, one guidewire was advanced. Over the wire a 8-Vietnamese Hemaquet was advanced. Then under fluoroscopic guidance through the 6 and 7-Vietnamese Hemaquet, two 5-Vietnamese Tommie curved quadripolar electrophysiology catheters were advanced and placed around the His as well as coronary sinus. Basic interval was measured. The patient was in atrial fibrillation. Through the 10-Vietnamese Hemaquet, a CordLaunchCyteter AcuNav intracardiac echo catheter was advanced and placed at the right atrium. Multiple view was obtained. There was no pericardial effusion, pulmonary vein was seen, atrial septal was visualized. Then the 8-Vietnamese Hemaquet in the right femoral vein was exchanged for Agilis transseptal sheath that was placed all the way to the superior vena cava. Through the sheath a Kimi needle was advanced, then the sheath, the dilator and the needle were progressed until foci engaged. Once engaged, the needle was advanced. RF was delivered for 2 seconds. I was able to cross into the left atrium. Once the needle crossed, the dilator was advanced. Once the dilator crossed, the sheath was advanced. Once the sheath crossed, the dilator and the needle were removed. At this point I did flood the system and fluid movement was seen in the left atrium the indicates the sheath is in good position. The patient already received 10,000 units of heparin. The goal is to keep an ACT around 350 during ablation. Then through the sheath a St. Lexx 20 pulse circumferential catheter was advanced. Using [employer] endocardial solution mapping system, a two-dimensional configuration of the left atrium was obtained. Points were taken at the left superior and inferior veins, right superior and inferior veins, mitral valve, and appendages. Then through the sheath a St. Lexx TactiCath 65cm 3.5mm irrigated tipped mapping and radiofrequency ablation catheter was advanced. Esophageal probe was placed temperature monitoring during ablation. When it increased to 0.5 degrees Celsius above baseline, I moved to a different area of the atrium. First I did isolate the left superior and inferior vein. I did make a big [place] around the veins. Posterior was ablated. Then a roof line was created, a floor line was created, a mitral line was isolated, then the mitral valve was isolated. At that point the patient was in left atrial tachycardia. I did create a line from the floor to the roof area, passing by the left atrial appendage. Left appendage was isolated. Then the right superior and inferior veins were isolated. I did remap the atrium. There is no significant signal in the atrium. At this point I decided to proceed with cardioversion. A 200 sync biphasic joule was delivered that converted the patient into sinus rhythm. At that point I did advance the circumferential catheter again into the vein. There was no signal into the vein, pacing from the vein showed no conduction to the atrium. Isuprel infusion was initiated at 20 mcg for 10 minutes. No tachyarrhythmia was induced, post Isuprel no tachyarrhythmia was induced. At that point the procedure was complete. All catheters were removed, atrial septal sheath was exchanged for 9-Vietnamese Hemaquet, intracardiac echo showed no pericardial effusion. There is still good flow in the pulmonary vein. The patient is going to be transferred to the recovery room. No incident report. The patient tolerated the procedure. Blood loss was minimal. FINDINGS 1. Electrocardiogram: At baseline the patient was in atrial fibrillation, post procedure the patient was in sinus rhythm. 2. Basic interval: Base cycle length was around 520. Post ablation she was around 1020 milliseconds. AH at 108 and HV at 152 milliseconds. 3. Tachyarrhythmia: Atrial fibrillation was mapped and ablated. Atrial tachycardia was ablated. The ablation was successful. CONCLUSION Successful electrophysiology study, mapping, radiofrequency ablation of atrial fibrillation, left atrial tachycardia, pulmonary vein isolation, posterior ablation, mitral valve isolation, mitral line creation, roof line creation, floor line creation, left atrial tachycardia,left appendage isolation and cardioversion. COMMENTS AND RECOMMENDATIONS The patient is going to be transferred to the telemetry unit. Will be observed and when stable can be discharged home. Carine Caicedo MD May 04, 2017 18:51
--- NOTE | 2017-05-04 19:20 | CATHPROC ---
Patient Name: DWIGHT TORIBIO Study #: [id number] Initial MD: Carine Caicedo Date of : 1945 Study Date: 05/04/2017 Cardiac Catheterization Report 05/05/2017 9:36:28 AM Financial #: [id number] 1 of 11 Patient Name: DWIGHT TORIBIO Study #: [id number] Initial MD: Carine Caicedo Date of : 1945 Study Date: 05/04/2017 Entire Case Report Patient Information Patient Name DWIGHT TORIBIO Date of 1945 Age 71 years Financial # [id number] Gender M AlternateID Lab Number 2 Room Number DC08 Height (in) 70.0 Height (cm) 177.8 BSA 2.08 Weight (lbs) 198.4 Weight (kg) 90.2 Patient Address/Phone Number Home Address [facility] Home Phone Number [phone] [facility] [address] Study Information Study Number Admission Scheduled Start Study Start [id number] May 04 2017 11:34AM 05/04/2017 May 04 2017 2:51PM [facility] Electrophysiology Study Admit Source Facility Department Other [facility] - Drum Saw Operator Physician and Clinical Staff Initial Carine Jasso Napper Runner Bharti Nunez RCIS Napper Runner Deven BhandariRT(R) Napper Runner Neda Booth RN Other Anesthesia, CHART CHANGER Recorder Paula Ingram RN Scrub Zoya Vasques,RT(R) TECH2 Procedures Performed Procedure Location (Site) Vessel Name Ablation Procedure Cardioversion ICE CATHETER INSERT RA Atruim RF Ablation LT. ATRIUM LT. ATRIUM 05/05/2017 9:36:28 AM Financial #: [id number] 2 of 11 Patient Name: DWIGHT TORIBIO Study #: [id number] Initial MD: Carine Caicedo Date of : 1945 Study Date: 05/04/2017 Equipment Time Bead Picker Description Size Mfg Part Number Used/Scraped NEEDLE, TRANSSEPTAL NRG 98 [id number] 15:52 [facility] Used C1 *[id number] [employer]/ EP [id number] 15:52 KIT, TRANSDUCER / AFIB Used PACER *[id number]- CATHETER, TACTICATH ABLAT BUNDLE 15:52 [employer] Used 65 BUNDLE *[id number]- BUNDLE [id number] CATHETER, FR7 OPTIMA SPIRAL 15:52 [facility] FR7 *[id number]- Used BUNDLE BUNDLE [id number] 15:52 [employer] CATHETER, JSN, QUAD BUNDLE FR 5 *[id number]- Used BUNDLE [id number] 15:52 [employer] CATHETER, JSN, QUAD BUNDLE FR 5 *[id number]- Used BUNDLE [id number] SET, COOL POINT TUBING 15:52 [employer] *[id number]- Used BUNDLE BUNDLE SHEATH, FR8.5 STEERABLE SM 15:52 [employer] 71CM [id number] Used 71CM BUNDLE COVER, TRANSDUCER CABLE 612-113 15:52 [employer] Used ACUNAV *[id number] 15:52 CORDIS/PACER SHEATH, FR10 REENA 11CM FR 10 Used *[id number] 15:52 CORDIS/PACER SHEATH, FR9 REENA 11CM FR 9 [id number] Used [id number] 15:52 [employer] PACK, CCL CUSTOM * Used *[id number] 15:52 MEDLINE PACER MENDOZA, LIMB * 2530 *[id number] Used [id number] 15:52 [employer] MEDICAL SHEATH, FR4.5 PRELUDE 11CM FR 4.5 Used [id number] 15:52 NAMIC TUBING, HIGH PRESSURE 48" 48" Used *[id number] 15:52 NAMIC TUBING, HIGH PRESSURE 48" 48" Used *[id number] [id number] 15:52 ZELAY[employer] MEDICAL BLANKET,WARM AIR CCL * Used *[id number] FD8445 15:52 [facility] MEDICAL ELECTRODE KIT, MARCIAL X SURFACE * Used *[id number] 151427 15:52 [employer] MEDICAL SHEATH, EPS, FR6 FAST CATH FR 6 Used *[id number] 15:52 [employer] MEDICAL SHEATH, EPS, FR7 FAST CATH FR 7 [id number] Used 246278 15:52 [employer] MEDICAL SHEATH, EPS, FR8 FAST CATH FR 8 Used *[id number] CATHETER, ACUNAV FR10 ICE [id number] 16:16 DIMITRIS FR 10 Used (DIMITRIS) *[id number] [facility] PAD, ELECTROSURGICAL 15:52 * [id number] *[id number] Used SURGICAL GROUNDING (BLUE) 05/05/2017 9:36:28 AM Financial #: [id number] 3 of 11 Patient Name: DWIGHT TORIBIO Study #: [id number] Initial MD: Carine Caicedo Date of : 1945 Study Date: 05/04/2017 Insurance Information Insurance Payor Medicare Third Libertarian Third Libertarian Number MEDICARE A B MCRAB History: Allergies Allergy Reaction neomycin Rash bacitracin Rash polymyxin B Rash History: Risk Factors Family History of Hypertension Previous Heart Failure Premature CAD Yes Yes Yes Prior Valve Prior CABG Surgery Yes Yes Labs Hgb (g/dl) Hct (%) RBC (MIL/MM3) WBC (l/cumm) Platelets (thousands) 11.60-17.00 35.00-51.00 4.00-5.90 4.00-11.00 150.00-450.00 17.0 51 5.9 7 190 Glucose (mg/dl) BUN (mg/dl) Creatinine (mg/dl) BUN:Creatinine (1:x) 74.00-106.00 7.00-18.00 0.50-1.30 10.00-20.00 115 21 1.6 13.1 Na (meq/l) K (meq/l) 136.00-145.00 3.50-5.10 135 4 INR (PTT:PT) 0.90-1.10 1.1 Medication 05/05/2017 9:36:28 AM Financial #: [id number] 4 of 11 Patient Name: DWIGHT TORIBIO Study #: [id number] Initial MD: Carine Caicedo Date of : 1945 Study Date: 05/04/2017 Medication Total Dose (Bolus/Oral) Medication Total Dosage/Unit 1% XYLOCAINE 40 mL HEPARIN 31626 units LASIX 40 mg PROTAMINE 40 mg Medications (Bolus/Oral) Medication Time Given Dosage/Unit Administered By Reason 1% XYLOCAINE 05/04/2017 4:06:39 PM 20 mL Carine Caicedo 20 mL 1% XYLOCAINE given in lab by Carine Caicedo in Left Groin via Subcutaneous. 1% XYLOCAINE 05/04/2017 4:11:40 PM 20 mL Carine Caicedo 20 mL 1% XYLOCAINE given in lab by Carine Caicedo in Right Groin via Subcutaneous. HEPARIN 05/04/2017 4:19:38 PM 47706 units Craine Caicedo As per physicians ve rbal order 42532 units HEPARIN given in lab by Carine Caicedo via Peripheral IV. Ordered by Carine Caicedo. Reason : As per physicians verbal order. HEPARIN 05/04/2017 4:33:37 PM 3000 units Carine Caicedo As per physicians janna bal order 3000 units HEPARIN given in lab by Carine Caicedo via Peripheral IV. Ordered by Carine Caicedo. Reason: As per physicians verbal order. HEPARIN 05/04/2017 4:44:34 PM 3000 units Carine Caicedo As per physicians janna bal order 3000 units HEPARIN given in lab by Carine Caicedo via Peripheral IV. Ordered by Carine Caicedo. Reason: As per physicians verbal order. HEPARIN 05/04/2017 4:58:22 PM 2000 units Carine Caicedo As per physicians janna bal order 2000 units HEPARIN given in lab by Carine Caicedo via Peripheral IV. Ordered by Carine Caicedo. Reason: As per physicians verbal order. LASIX 05/04/2017 6:43:22 PM 40 mg Anesthesia, CHART CHANGER As per physicians verba l order 40 mg LASIX given in lab by Anesthesia, CHART CHANGER via Peripheral IV. Ordered by Carine Caicedo. Reason: As per physicians verbal order. PROTAMINE 05/04/2017 6:46:38 PM 40 mg Anesthesia, CHART CHANGER As per physicians janna bal order 40 mg PROTAMINE given in lab by Anesthesia, CHART CHANGER via Peripheral IV. Ordered by Carine Caicedo. Reason: As per physicians verbal order. Medication (Drip) Medication Time Given Dosage/Unit Concentration/Unit Diluent (ml) Solution ISUPREL 05/04/2017 6:23:23 PM 20 mcg/min 1 mg 250 NaCl .9 20 mcg/min ISUPREL given in lab by Anesthesia, CHART CHANGER via Peripheral IV. Pump/Drip Flow = 300 ml/hr usi ng NaCl .9 with a concentration of 1 mg in 250 ml. Ordered by Carine Caicedo. Reason: As per physicians verbal order. LEVAQUIN 05/04/2017 3:40:11 PM 100 mL/hr 500 100 NaCl .9 100 mL/hr LEVAQUIN given in lab by Anesthesia, CHART CHANGER via Peripheral IV. Pump/Drip Flow = 0 ml/hr using NaCl .9 with a concentration of 500 in 100 ml. Ordered by Carine Caicedo. Reason: As per physicians verbal order. for nicolas insertion. 05/05/2017 9:36:28 AM Financial #: [id number] Patient Name: DWIGHT TORIBIO Study #: [id number] Initial MD: Carine Caicedo Date of : 1945 Study Date: 05/04/2017 Initial Case Assessment Cardiovascular HR NIBP Chest Pain 109 134/92 0 Edema Present Skin color Skin None Normal Warm Dry Circulatory - Right Pulses Dorsalis Pedis 1 Scale (0,1,2,3,4,d) Circulatory - Left Pulses Dorsalis Pedis 1 Scale (0,1,2,3,4,d) Circulatory - Lower Extremities Color Lower Right Color Lower Left Normal Normal Neurological State Oriented to time-place- Alert Moves all extremities person Respiration - General Respiration Rate SpO2 (%) (B/min) 18 100 05/05/2017 9:36:28 AM Financial #: [id number] Patient Name: DWIGHT TORIBIO Study #: [id number] Initial MD: Carine Caicedo Date of : 1945 Study Date: 05/04/2017 Final Case Assessment Cardiovascular HR Rhythm NIBP Chest Pain 94 sr 145/83 0 Edema Present Skin color Skin None Normal Warm Dry Circulatory - Right Pulses Dorsalis Pedis 2 Scale (0,1,2,3,4,d) Circulatory - Left Pulses Dorsalis Pedis 2 Scale (0,1,2,3,4,d) Circulatory - Lower Extremities Color Lower Right Color Lower Left Normal Normal Neurological State Oriented to time-place- Alert Moves all extremities person Respiration - General Respiration Rate SpO2 (%) O2 (lpm) (B/min) 18 96 4 Chronological Log Time Study Chronological Log 15:04:46 Patient arrived via Bed. 15:04:47 Patient Name, D.O.B, / Armband Verified By R.N. 15:04:48 Consent signed by the physician and the patient and verified by the Drum Saw Operator staff. 15:04:49 Pre-op and post- op instructions given; patient acknowledges understanding of instructions. 15:04:51 Verbal Stimulation=2 Physical Stimulation=2 Airway=2 Respiration=2 TOTAL=8. (0=absent, 1=li mited, 2=present) 15:05:06 Anesthesia at bedside. Assumes care of patient. 15:05:15 History and physical on the chart. 15:05:16 Patient has been NPO for More than 6Hrs. 15:05:24 Skin Breakdown- legs brick red discoloration knees down, purpley feet 05/05/2017 9:36:28 AM Financial #: [id number] Patient Name: DWIGHT TORIBIO Study #: [id number] Initial MD: Carine Caicedo Date of : 1945 Study Date: 05/04/2017 15:06:47 Patient Warmer Placed on the Table. 15:06:48 Disposable Defibrillator Pads Placed On Patient. 15:06:49 Keyla Prominences Protected 15:06:54 A # 20 IV was noted in the Antecubital (right). Grade = 0 0.9%nacl kvo 15:07:20 A # 20 IV was noted in the Antecubital (right). Grade = 0 0.9%nacl at kvo 15:12:50 [facility] rep in room. ICD deactivated, pacing set to VVI 40 per md orders. Assessment: Initial Case, KI=369 BPM, VNKE=173/92 mmhg, Chest Pain=0, Edema=None, Color=Normal, Skin = Warm, Dry Right Pulses: Bar Ped=1 Left Pulses: Bar Ped=1 15:15:22 Lower Right Extremities: Color=Normal Lower Left Extremities: Color=Normal Neurological: State=Alert, Ox3, EDI Respiration: Resp=18 B/min, EmK0=140 % 15:18:30 Table restraints applied according to hospital policy Anesthesiologoist present for intubation. 14 fr nicolas inserted by THOMAS chavez using asep tic technique. Clear yellow 15:31:13 urine obtained.Secured to leg and bag to bedside drainage. 15:36:46 Bilateral groins prepped with 2% chlorhexidine, and draped after a 3 minute waiting time. 100 mL/hr LEVAQUIN given in lab by Anesthesia, CHART CHANGER via Peripheral IV. Pump/Drip Flow = 0 ml/hr using NaCl .9 with 15:40:11 a concentration of 500 in 100 ml. Ordered by Carine Caicedo. Reason: As per physicians adonay deluna order. for nicolas insertion. 15:41:37 MD paged 15:45:03 MD responded 15:58:50 MD arrived. 16:00:34 Reference ECG taken Time Out. Correct patient, procedure, procedure equipment, site and side verified with physicia n present. Time 16:03:00 concurred by MD, individual staff and CHART CHANGER. Time Out #2 - Consents verified, patient in correct position, all results are labled and displa yed, safety precautions 16:03:21 taken, antibiotics administered. Time out concurred by MD, individual staff and CHART CHANGER in procedu re 16:03:31 Case Start 16:03:33 Ankur in progress. 16:05:48 Ankur complete 16:06:39 20 mL 1% XYLOCAINE given in lab by Carine Caicedo in Left Groin via Subcutaneous. 16:07:03 Vascular access was obtained in the Fem Vein (left). 16:07:11 Vascular access was obtained in the Fem Vein (left). 16:07:25 Vascular access was obtained in the Fem Vein (left). 16:07:30 Vascular access was obtained in the Fem Art (left). A SHEATH, FR4.5 PRELUDE 11CM FR 4.5 was advanced into the Fem Art (left) using the Modified Cyndee yamilex technique. 16:08:09 0.9 ns pressure bag connected. 16:08:41 A SHEATH, EPS, FR6 FAST CATH FR 6 was advanced into the Fem Vein (left) using the Modified Seldinger technique. 16:08:48 A SHEATH, EPS, FR7 FAST CATH FR 7 was advanced into the Fem Vein (left) using the Modified Seldinger technique. 16:09:22 A SHEATH, FR10 REENA 11CM FR 10 was advanced into the Fem Vein (left) using the Modified S unadinger technique. 16:11:40 20 mL 1% XYLOCAINE given in lab by Carine Caicedo in Right Groin via Subcutaneous. 05/05/2017 9:36:28 AM Financial #: [id number] 8 of 11 Patient Name: DWIGHT TORIBIO Study #: [id number] Initial MD: Carine Caicedo Date of : 1945 Study Date: 05/04/2017 16:12:01 Vascular access was obtained in the Fem Vein (right). 16:12:12 A SHEATH, EPS, FR8 FAST CATH FR 8 was advanced into the Fem Vein (right) using the Modified Seldinger technique. A CATHETER, JSN, QUAD BUNDLE FR 5 was advanced vis Fem Vein (left) and placed in the CS. Placem ent was visually 16:14:14 confirmed under fluoroscopy. A CATHETER, JSN, QUAD BUNDLE FR 5 was advanced vis Fem Vein (left) and placed in the HIS. Place ment was 16:14:31 visually confirmed under fluoroscopy. 16:15:59 CATHETER, ACUNAV FR10 ICE (S[employer]) FR 10 Was Postioned. 16:16:22 [place] [address] units HEPARIN given in lab by Carine Caicedo via Peripheral IV. Ordered by Carine Caicedo. Reason: As per 16:19:38 physicians verbal order. 16:24:40 A eps was advanced to the right atrium and passed through the septal wall to the left atriu m. 16:24:58 [place] needle out. A CATHETER, FR7 OPTIMA SPIRAL BUNDLE FR7 was advanced vis Fem Vein (right) and placed in the LA . Placement 16:25:17 was visually confirmed under fluoroscopy. 16:25:27 Mapping in progress. 16:26:58 Activated Clotting Time Drawn 16:33:28 ACT (Normal Range 90-180) = 287 3000 units HEPARIN given in lab by Carine Caicedo via Peripheral IV. Ordered by Carine Caicedo. R bao: As per 16:33:37 physicians verbal order. 16:38:00 Activated Clotting Time Drawn 16:38:40 Mapping complete. Mapping catheter removed. A CATHETER, TACTICATH ABLAT 65 BUNDLE was advanced via Fem Vein (left) and placed in the LA. Pl acement was 16:40:42 visually confirmed under fluoroscopy. 16:44:28 ACT (Normal Range 90-180) = 282 3000 units HEPARIN given in lab by Carine Caicedo via Peripheral IV. Ordered by Carine Caicedo. Karsten gore: As per 16:44:34 physicians verbal order. 16:48:[address]x mapping system. 16:50:40 RF Ablation of the LT. ATRIUM with a CATHETER, TACTICATH ABLAT 65 BUNDLE. 16:51:51 Activated Clotting Time Drawn 16:57:35 ACT (Normal Range 90-180) = 339 2000 units HEPARIN given in lab by Carine Caicedo via Peripheral IV. Ordered by Carine Caicedo. Karsten gore: As per 16:58:22 physicians verbal order. 17:08:52 Activated Clotting Time Drawn 17:14:51 ACT (Normal Range 90-180) = 382 17:42:01 Activated Clotting Time Drawn 17:46:42 ACT (Normal Range 90-180) = 359 18:00:40 Ablation complete. Catheter was removed A CATHETER, FR7 OPTIMA SPIRAL BUNDLE FR7 was advanced via Fem Vein (right) and placed in the LA . Placement 18:00:50 was visually confirmed under fluoroscopy. Mapping in progress. 18:04:27 Mapping Catheter was removed A CATHETER, TACTICATH ABLAT 65 BUNDLE was advanced via Fem Vein (right) and placed in the LA. P lacement was 18:04:46 visually confirmed under fluoroscopy. 18:05:09 RF Ablation of the LT. ATRIUM with a CATHETER, TACTICATH ABLAT 65 BUNDLE. 18:17:47 Activated Clotting Time Drawn 05/05/2017 9:36:28 AM Financial #: [id number] Patient Name: DWIGHT TORIBIO Study #: [id number] Initial MD: Carine Caicedo Date of : 1945 Study Date: 05/04/2017 18:19:20 ECG rhythm of AF noted. Patient cardioverted at 200 joules. Success synch 18:19:52 Monitor noted sr. 20 mcg/min ISUPREL given in lab by Anesthesia, CHART CHANGER via Peripheral IV. Pump/Drip Flow = 300 ml/ hr using NaCl .9 18:23:23 with a concentration of 1 mg in 250 ml. Ordered by Carine Caicedo. Reason: As per physicians janna bal order. 18:37:54 Isuprel off 18:38:06 ACT (Normal Range 90-180) = 333 18:40:48 All catheters removed 18:41:03 heparin off A SHEATH, FR9 REENA 11CM FR 9 was exchanged in the Fem Vein (right). This was necessary in ord er to minimize 18:41:16 site leakage. 40 mg LASIX given in lab by Anesthesia, CHART CHANGER via Peripheral IV. Ordered by Carine Caicedo. Reaso n: As per physicians 18:43:22 verbal order. 40 mg PROTAMINE given in lab by Anesthesia, CHART CHANGER via Peripheral IV. Ordered by Carine Caicedo. R bao: As per 18:46:38 physicians verbal order. 18:46:39 Defibrilator reenabled DDD70 by [address] Lexx rep et per Dr's order. 18:52:06 Activated Clotting Time Drawn 18:57:00 Left fem arterial Sheath removed; pressure applied to access site by DC. 18:57:05 right fem venous Sheath removed; pressure applied to access site by HH. 18:57:12 ACT (Normal Range 90-180) = 169 Assessment: Final Case, HR=94 BPM, Rhythm=sr, JUZP=655/83 mmhg, Chest Pain=0, Edema=None, Color =Normal, Skin = Warm, Dry Right Pulses: Bar Ped=2 Left Pulses: Bar Ped=2 18:58:46 Lower Right Extremities: Color=Normal Lower Left Extremities: Color=Normal Neurological: State=Alert, Ox3, EID Respiration: Resp=18 B/min, SpO2=96 %, O2=4 lpm 19:00:00 No case complications noted. 19:00:02 Cine recording checked. 19:00:10 Ablation procedure performed: AFIB. 19:00:15 EP Procedure was performed. 19:01:58 PACU called. Spoke to Manas 19:02:08 Bedside Report will be given. 19:07:23 Left fem venous sheaths removed; pressure applied to access sites by DC. 19:10:38 Case End 19:17:22 Sterile dressing applied to right groin. Site wnl. 19:19:05 No case complications noted. 19:19:06 Cine recording checked. 19:29:16 Sterile dressing applied to Left groin site. Site wnl. 19:35:50 Patient moved to stretcher. To PACU w anesthesia. 05/05/2017 9:36:28 AM Financial #: [id number] Patient Name: DWIGHT TORIBIO Study #: [id number] Initial MD: Carine Caicedo Date of : 1945 Study Date: 05/04/2017 End Study - Contrast Media Used In Study Contrast Total Opened (mL) Total Used (mL) Total Wasted (mL) Unspecified 0 0 0 End Study - Maximum Contrast Load Max Contrast Load (mL) 281.8 End Study - Radiation Exposure Fluoro Time (minutes) 2.8 End Study - Sheaths Sheaths Pulled By Sheath Hold Time (min) Zoya Vasques End Study - Patient Disposition Complications Transferred To Interventional Outcome No Telemetry Bed successful 05/05/2017 9:36:28 AM Financial #: [id number]
[2017-05-04] MEDS ORDERED: DO NOT ADM ANY ANTICOAGULANT DRUGS PRN (19:33)
[2017-05-04 21:00] VITALS: PULSE 88; PULSE 90
[2017-05-04] MEDS ORDERED: SOTALOL HCL 80 MG TAB PO SCH (21:00)
[2017-05-04] MEDS ORDERED: DOXYCYCLINE 100 MG PO SCH (21:00)
[2017-05-04] MEDS: BETHANECHOL CHL 25 MG TAB PO SCH (21:00)
[2017-05-04] MEDS ORDERED: ATORVASTATIN 20 MG TAB PO SCH (21:00)
[2017-05-04] MEDS ORDERED: [UNRECOGNIZED DRUG - OTHER] PO SCH (21:00)
[2017-05-04] MEDS ORDERED: NON-FORMULARY DRUG (Rosuvastatin (Crestor) 10 MG) PO SCH (21:00)
[2017-05-04 21:32] VITALS: BP 117/80; PULSE 86; RESP 16; O2SAT 96
[2017-05-04 22:00] VITALS: PULSE 86
[2017-05-04 23:00] VITALS: PULSE 86
[2017-05-04 23:14] VITALS: BP 119/76; PULSE 85; RESP 16; TEMP 98.9; O2SAT 95
[2017-05-04] MEDS: APIXABAN 5 MG TABLET PO SCH (23:18)
[2017-05-04] MEDS: DULoxetine HCl DR 30 MG CAP PO SCH (23:19)
[2017-05-05] VITALS (9 sets, daily range): BP systolic 114–127; BP diastolic 77–84; PULSE 82–88; RESP 16–20; TEMP 98.6; O2SAT 94–95
[2017-05-05] MEDS: SODIUM CHLORID 0.9% 500 ML INJ 500 ML IV SCH (04:40)
[2017-05-05] MEDS ORDERED: LISI-515 PO (08:09)
[2017-05-05] MEDS ORDERED: AMIO200T PO (08:09)
[2017-05-05] MEDS: APIXABAN 5 MG TABLET PO SCH (08:11)
[2017-05-05] MEDS: DULoxetine HCl DR 30 MG CAP PO SCH (08:11)
[2017-05-05] MEDS: BETHANECHOL CHL 25 MG TAB PO SCH (08:12)
--- NOTE | 2017-05-05 08:13 | PD.CARD.PN ---
Subjective Subjective Remarks Feels okay Objective Medications Current Medications Medications (Trade) Dose Ordered Sig/Rupal Route Start Time Stop Time Status Last Admin Sodium Chloride 500 ml @ 30 mls/hr [id number] IV 05/04/17 12:00 (Ativan) 1 mg WAREHOUSE WORKER 2ND SHIFT SL 05/04/17 12:00 05/07/17 11:59 Lactated Ringer's 1,000 ml @ 30 mls/hr Q24H PRN IV 05/04/17 12:00 05/07/17 11:59 Sodium Chloride 500 ml @ 30 mls/hr [id number] PRN IV 05/04/17 12:00 05/07/17 11:59 (Lopressor) 25 mg WAREHOUSE WORKER 2ND SHIFT PRN PO 05/04/17 12:00 05/07/17 11:59 (Betadine 5% Antisepsis Kit) 1 applic WAREHOUSE WORKER 2ND SHIFT PRN EACH NARE 05/04/17 12:00 05/07/17 11:59 (Chlorhexidine 2% Cloth) 3 pack WAREHOUSE WORKER 2ND SHIFT PRN TOPICAL 05/04/17 12:00 05/07/17 11:59 (Eliquis) 5 mg BID PO 05/04/17 21:00 05/04/17 23:18 (Urecholine) 12.5 mg QID PO 05/04/17 18:00 (Cymbalta Dr) 30 mg BID PO 05/04/17 21:00 05/04/17 23:19 (Lasix) 40 mg DAILY PO 05/05/17 09:00 (Roxicodone) 10 mg Q8HR PO 05/04/17 22:00 05/05/17 07:39 (Protonix) 40 mg DAILY PO 05/05/17 09:00 Patient Own Medication PT OWN MED: FISH OIL 1... DAILY PO 05/05/17 09:00 Future Hold (Lipitor) 20 mg HS PO 05/04/17 21:00 05/04/17 21:00 Patient Own Medication PT OWN MED: VIT B12/FO... DAILY PO 05/05/17 09:00 Future Hold Patient Own Medication PT OWN MED: DOXYCYCL... BID PO 05/04/17 21:00 Future Hold (Percocet 5-325 Mg) 1 tab Q4H PRN PO 05/04/17 18:45 (Percocet 5-325 Mg) 2 tab Q4H PRN PO 05/04/17 18:45 05/04/17 20:02 (Ativan Inj) 0.5 mg UNSCH PRN IV PUSH 05/04/17 18:45 05/05/17 18:44 (Atropine Inj) 0.5 mg UNSCH PRN IV PUSH 05/04/17 18:45 Sodium Chloride 250 ml @ 500 mls/hr ONCE PRN IV 05/04/17 18:45 05/05/17 18:44 (Zofran Inj) 4 mg Q4H PRN IV PUSH 05/04/17 18:45 (Xylocaine 1% Inj (50 ml)) 10 ml UNSCH PRN INFIL 05/04/17 18:45 05/05/17 18:44 (Cordarone) 200 mg DAILY PO 05/05/17 09:00 (Prinivil) 20 mg DAILY PO 05/05/17 09:00 Miscellaneous Information ALL NURSING DEPARTME... UNSCH PRN .XX 05/04/17 19:33 05/05/17 19:32 Vital Signs / I&O Vital Signs Date Time Temp Pulse Resp B/P (MAP) Pulse Ox O2 Delivery O2 Flow Rate FiO2 05/05/17 04:06 82 05/05/17 02:00 84 05/05/17 01:21 86 16 114/77 (89) 95 05/05/17 01:00 88 05/05/17 00:36 16 05/05/17 00:10 87 05/05/17 00:00 86 05/04/17 23:14 119/76 (90) 05/04/17 23:14 98.9 85 16 119/76 (90) 95 05/04/17 23:00 86 05/04/17 22:00 86 05/04/17 21:52 16 05/04/17 21:32 86 16 117/80 (92) 96 05/04/17 21:00 90 05/04/17 21:00 88 05/04/17 20:40 90 13 137/51 (79) 94 Nasal Cannula 2 05/04/17 20:30 90 13 133/83 (100) 94 Nasal Cannula 2 05/04/17 20:15 85 16 127/82 (97) 94 Nasal Cannula 2 05/04/17 20:00 86 16 139/85 (103) 95 Nasal Cannula 2 05/04/17 19:45 98.2 86 19 151/93 (112) 95 Nasal Cannula 2 05/04/17 12:37 98.1 111 17 145/91 (109) 99 I/O 05/04/17 05/04/17 05/04/17 05/05/17 05/05/17 05/05/17 07:00 15:00 23:00 07:00 15:00 23:00 Intake Total 350 ml Output Total 460 ml 557 ml Balance -110 ml -557 ml Intake Oral 250 ml IV Total 100 ml Output Urine Total 460 ml 557 ml Physical Exam GENERAL: Well-nourished, well-developed patient. SKIN: Warm and dry. Groin site soft with no bruising or bleeding. HEAD: Normocephalic. EYES: No scleral icterus. No injection or drainage. NECK: Supple, trachea midline. No JVD or lymphadenopathy. CARDIOVASCULAR: Regular rate and rhythm without murmurs, gallops, or rubs. RESPIRATORY: Breath sounds equal bilaterally. No accessory muscle use. GASTROINTESTINAL: Abdomen soft, non-tender, nondistended. EXTREMITIES: No cyanosis, or edema. NEUROLOGICAL: Awake, alert, and oriented x 3. Non-focal. Laboratory Laboratory Tests Test 05/04/17 12:20 White Blood Count 7.0 TH/MM3 Red Blood Count 5.90 MIL/MM3 Hemoglobin 17.2 GM/DL Hematocrit 51.8 % Mean Corpuscular Volume 87.8 FL Mean Corpuscular Hemoglobin 29.1 PG Mean Corpuscular Hemoglobin Concent 33.2 % Red Cell Distribution Width 15.0 % Platelet Count 190 TH/MM3 Mean Platelet Volume 8.9 FL Neutrophils (%) (Auto) 66.0 % Lymphocytes (%) (Auto) 20.9 % Monocytes (%) (Auto) 8.2 % Eosinophils (%) (Auto) 4.4 % Basophils (%) (Auto) 0.5 % Neutrophils # (Auto) 4.6 TH/MM3 Lymphocytes # (Auto) 1.5 TH/MM3 Monocytes # (Auto) 0.6 TH/MM3 Eosinophils # (Auto) 0.3 TH/MM3 Basophils # (Auto) 0.0 TH/MM3 CBC Comment DIFF FINAL Differential Comment Prothrombin Time 11.6 SEC Prothromb Time International Ratio 1.1 RATIO Activated Partial Thromboplast Time 28.9 SEC Blood Urea Nitrogen 21 MG/DL Creatinine 1.61 MG/DL Random Glucose 115 MG/DL Calcium Level 10.3 MG/DL Sodium Level 139 MEQ/L Potassium Level 4.0 MEQ/L Chloride Level 101 MEQ/L Carbon Dioxide Level 31.8 MEQ/L Anion Gap 6 MEQ/L Estimat Glomerular Filtration Rate 42 ML/MIN Assessment and Plan Problem List: (1) Atrial fibrillation ICD Codes: I48.91 - Unspecified atrial fibrillation Plan: Normal sinus rhythm on telemetry status post ablation. (2) S/P ablation of atrial fibrillation ICD Codes: Z98.890 - Other specified postprocedural states; Z86.79 - Personal history of other diseases of the circulatory system Plan: Continue eliquis, discharge home, follow-up with Dr. Caicedo in 3 weeks per my discussion with him. Pauly Romero May 05, 2017 08:13
[2017-05-05] MEDS ORDERED: FOLIC ACID PO SCH (09:00)
[2017-05-05] MEDS ORDERED: FUROSEMIDE 40 MG TAB PO SCH ×2 (09:00)
[2017-05-05] MEDS ORDERED: LISINOPRIL 20 MG TAB PO SCH (09:00)
[2017-05-05] MEDS ORDERED: [UNRECOGNIZED DRUG - OTHER] PO SCH (09:00)
[2017-05-05] MEDS ORDERED: NON-FORMULARY DRUG (Omega-3 Fatty Acids (Fish Oil 1200 mg) 1,200 MG) PO SCH (09:00)
[2017-05-05] MEDS ORDERED: CYANOCOBALAMIN PO SCH (09:00)
[2017-05-05] MEDS ORDERED: PANTOPRAZOLE SOD 40 MG DELAYED RELEASE TAB PO SCH (09:00)
[2017-05-05] MEDS ORDERED: FISH OIL 1200 MG PO SCH (09:00)
[2017-05-05] MEDS ORDERED: GREEN TEA LEAF EXTRACT PO SCH (09:00)
[2017-05-05] MEDS ORDERED: AMIODARONE 200 MG TAB PO SCH (09:00)
--- NOTE | 2017-05-05 09:48 | EKG ---
Date Performed: 05/04/2017 Time Performed: 19:51:04 PTAGE: 71 years EKG: Sinus rhythm MARKED RIGHT AXIS DEVIATION INTRAVENTRICULAR CONDUCTION DELAY ABNORMAL ECG PREVIOUS TRACING : 05/04/2017 13.13 DOCTOR: Sterling Romero Interpretating Date/Time 05/05/2017 09:46:49
--- NOTE | 2017-05-05 10:29 | EKG ---
Date Performed: 05/04/2017 Time Performed: 13:13:28 PTAGE: 71 years EKG: Atrial fibrillation with rapid ventricular response. Right axis deviation IV conduction def ect Lateral infarct - age undetermined Possible anteroseptal infarct - age undetermined Inferior ST-T changes may be due to myocardial ischemia Abnormal ECG PREVIOUS TRACING : 05/04/2017 13.04 DOCTOR: Sterling Romero Interpretating Date/Time 05/05/2017 10:27:58
--- NOTE | 2017-05-06 23:30 | EKG ---
Date Performed: 05/05/2017 Time Performed: 04:39:50 PTAGE: 71 years EKG: Sinus rhythm with 1st degree A-V block IV conduction defect Anteroseptal infarct - age undetermined Inferior/late ral ST-T changes are nonspecific Abnormal ECG PREVIOUS TRACING : 05/04/2017 19.51 Since previous tracing, no significant change noted DOCTOR: Vinayak Shankar Interpretating Date/Time 05/06/2017 23:29:13
== END 2017-05-05 09:49 | disposition home or self-care (01) ==
LOC: HDOC 11:34 → HDIC 11:35 → HCIS 20:52 → HDOC 05-05 09:49
PROVIDERS: ATTEND Internal Medicine Interventional Cardiology
DX: I48.2 Chronic atrial fibrillation (principal)
CPT/HCPCS: 00537; 80048; 85002; 85025; 85610; 85730; 86850; 86900; 86901; 92960; 93005; 93613; 93623; 93656; 93662; C1730; C1731; C1732; C1759; C1766; C2630; J1644; J1940; J1956; J2720; J3010; J1100; J2370; J2405; J2710

== ENCOUNTER 2017-06-21 08:54 | Day surgery (SDC) | payer MEDICARE, BC ==
[~2017-06-21 08:54] MED LIST changes: +FURO1TAB60 PO; +LISI-515 PO; +VITATAB43 PO
[2017-06-21] MEDS ORDERED: LISI-519 PO (09:55)
[2017-06-21] MEDS: DOFETILIDE 250 MCG CAP PO SCH ×2 (11:15→21:32)
[2017-06-21] MEDS ORDERED: TEMAZEPAM 15 MG CAP PO PRN (11:15)
--- NOTE | 2017-06-21 12:41 | MA ---
cc: Carine Caicedo MD [facility] [place] 06/21/2017 PROCEDURE PERFORMED: Cardioversion Mr. Saldana is a 71-year-old gentleman with congestive heart failure, cardiomyopathy, atrial fibrillation, previous ablation, symptomatic who will undergo cardioversion. The risks, the nature and the benefit of the procedure are clearly stated to him. The risks include cardiac arrest, need for endotracheal intubation and even . The patient understands and agreed to proceed. PROCEDURE: After written informed consent was obtained, the patient was evaluated by anesthesiologist. Subsequently anterolateral pads were placed. The 200 synch biphasic joules were delivered that converted the patient into sinus rhythm. No incident to report. The patient tolerated the procedure. CONCLUSION: Successful cardioversion. COMMENT AND RECOMMENDATION: The patient is going to be transferred to the recovery room. He will be observed and then transferred to the CIC unit. Tikosyn will be initiated. Carine Caicedo MD HS/DL/rr , 11:17 AM , 11:34 AM
[2017-06-21] MEDS: BETHANECHOL CHL 25 MG TAB PO SCH ×3 (13:00→21:26)
[2017-06-21 15:02] VITALS: BP 119/85; PULSE 77; RESP 18; TEMP 97.9; O2SAT 96
[2017-06-21 17:41] LABS: AUTOMATED NEUTROPHIL # 3.4 TH/MM3 (1.8-7.7); BASOPHIL % 0.6 % (0.0-2.0); EOSINOPHIL # 0.2 TH/MM3 (0-0.4); EOSINOPHIL % 3.8 % (0.0-4.0); HEMATOCRIT 47.7 % (39.0-51.0); HEMOGLOBIN 15.8 GM/DL (13.0-17.0); LYMPH % 24.9 % (9.0-44.0); LYMPHOCYTE # 1.4 TH/MM3 (1.0-4.8); MEAN CELL VOLUME 86.9 FL (80.0-100.0); MEAN CORPUSCULAR HEMOGLOBIN 28.8 PG (27.0-34.0); MEAN CORPUSCULAR HGB CONC 33.2 % (32.0-36.0); MEAN PLATELET VOLUME 8.2 FL (7.0-11.0); MONO % 10.2 % (0.0-8.0); MONOCYTE # 0.6 TH/MM3 (0-0.9); NEUT % 60.5 % (16.0-70.0); PLATELET COUNT 184 TH/MM3 (150-450); RED BLOOD COUNT 5.49 MIL/MM3 (4.50-5.90); RED CELL DISTRIBUTION WIDTH 14.6 % (11.6-17.2); WHITE BLOOD COUNT 5.7 TH/MM3 (4.0-11.0)
[2017-06-21 17:50] LABS: INTERNATIONAL NORMALIZED RATIO 1.1 RATIO; PROTHROMBIN TIME - PATIENT 11.6 SEC (9.8-11.6)
[2017-06-21 18:04] LABS: ALBUMIN 3.4 GM/DL (3.4-5.0); AST (GOT) 26 U/L (15-37); BICARBONATE 32.1 MEQ/L (21.0-32.0); BLOOD UREA NITROGEN 15 MG/DL (7-18); CALCIUM 9.8 MG/DL (8.5-10.1); CHLORIDE 107 MEQ/L (98-107); GLOMERULAR FILTRATION RATE 59 ML/MIN (>89); GLUCOSE,RANDOM 103 MG/DL (74-106); SODIUM (NA) 142 MEQ/L (136-145)
[2017-06-21 18:07] LABS: ALKALINE PHOSPHATASE 118 U/L (45-117); ALT (GPT) 37 U/L (12-78); TOTAL BILIRUBIN ADULT 0.5 MG/DL (0.2-1.0); TOTAL PROTEIN 6.6 GM/DL (6.4-8.2)
[2017-06-21 20:00] VITALS: BP 137/99; PULSE 78; RESP 20; TEMP 97.6; O2SAT 96
[2017-06-21] MEDS ORDERED: [UNRECOGNIZED DRUG - OTHER] SL SCH (21:00)
[2017-06-21] MEDS: APIXABAN 5 MG TABLET PO SCH (21:18)
[2017-06-21] MEDS: ATORVASTATIN 20 MG TAB PO SCH (21:25)
[2017-06-21] MEDS: LISINOPRIL 5 MG TAB PO SCH (21:26)
[2017-06-21] MEDS: [UNRECOGNIZED DRUG - OTHER] SL SCH (23:10)
[2017-06-21 23:14] VITALS: BP 141/98; PULSE 78; RESP 22; TEMP 97.1; O2SAT 96
[2017-06-22] VITALS (19 sets, daily range): BP systolic 90–144; BP diastolic 27–94; PULSE 58–78; RESP 16–22; TEMP 97.6–98.7; O2SAT 94–98
[2017-06-22] MEDS ORDERED: [UNRECOGNIZED DRUG - OTHER] SL SCH (09:00)
[2017-06-22] MEDS ORDERED: FOLIC ACID 1 MG TAB PO SCH (09:00)
[2017-06-22] MEDS: CYANOCOBALAMIN 1,000 MCG TAB PO SCH (09:00)
[2017-06-22] MEDS: DULoxetine HCl DR 30 MG CAP PO SCH (10:53)
[2017-06-22] MEDS: APIXABAN 5 MG TABLET PO SCH ×2 (10:53→21:29)
[2017-06-22] MEDS: [UNRECOGNIZED DRUG - OTHER] SL SCH (10:53)
[2017-06-22] MEDS: FUROSEMIDE 20 MG TAB PO SCH (10:53)
[2017-06-22] MEDS: PANTOPRAZOLE SOD 40 MG DELAYED RELEASE TAB PO SCH (10:54)
[2017-06-22] MEDS: BETHANECHOL CHL 25 MG TAB PO SCH ×4 (10:54→21:29)
[2017-06-22] MEDS: [UNRECOGNIZED DRUG - OTHER] SL SCH (13:47)
[2017-06-22] MEDS ORDERED: [UNRECOGNIZED DRUG - OTHER] SL SCH (14:00)
[2017-06-22] MEDS: FOLIC ACID 1 MG TAB PO SCH (15:12)
[2017-06-22] MEDS ORDERED: DOFETILIDE 125 MCG CAP PO SCH (21:00)
[2017-06-22] MEDS: [UNRECOGNIZED DRUG - OTHER] SL SCH (21:27)
[2017-06-22] MEDS: ATORVASTATIN 20 MG TAB PO SCH (21:29)
[2017-06-22] MEDS: LISINOPRIL 5 MG TAB PO SCH (21:30)
[2017-06-23] VITALS (27 sets, daily range): BP systolic 94–161; BP diastolic 57–96; PULSE 68–82; RESP 17–20; TEMP 97.7–98.2; O2SAT 92–97
--- NOTE | 2017-06-23 07:46 | EKG ---
Date Performed: 06/21/2017 Time Performed: 11:02:40 PTAGE: 71 years EKG: Sinus rhythm with left bundle branch block Abnormal ECG Compared to PREVIOUS TRACING , the patient is no longer in atrial fibrillation. PREVIOUS TRACIN 04.39 DOCTOR: Ever Yost Interpretating Date/Time 06/23/2017 07:46:19
--- NOTE | 2017-06-23 07:46 | EKG ---
Date Performed: 06/21/2017 Time Performed: 09:15:40 PTAGE: 71 years EKG: ATRIAL FIBRILLATION WITH VENTRICULAR DEMAND PACING LEFT BUNDLE BRANCH BLOCK Abnormal ECG Si nce PREVIOUS TRACING , no significant change noted PREVIOUS TRACING 05/05/2017 04.39.50 DOCTOR: Ever Yost Interpretating Date/Time 06/23/2017 07:45:35
[2017-06-23] MEDS: BETHANECHOL CHL 25 MG TAB PO SCH ×4 (09:49→21:00)
[2017-06-23] MEDS: DULoxetine HCl DR 30 MG CAP PO SCH (09:49)
[2017-06-23] MEDS: APIXABAN 5 MG TABLET PO SCH ×2 (09:50→23:10)
[2017-06-23] MEDS: FUROSEMIDE 20 MG TAB PO SCH (09:50)
[2017-06-23] MEDS: PANTOPRAZOLE SOD 40 MG DELAYED RELEASE TAB PO SCH (09:50)
[2017-06-23] MEDS: FOLIC ACID 1 MG TAB PO SCH (09:50)
[2017-06-23] MEDS: CYANOCOBALAMIN 1,000 MCG TAB PO SCH (09:52)
[2017-06-23] MEDS: [UNRECOGNIZED DRUG - OTHER] SL SCH (09:53)
[2017-06-23] MEDS: [UNRECOGNIZED DRUG - OTHER] SL SCH (13:13)
--- NOTE | 2017-06-23 15:06 | EKG ---
Date Performed: 06/22/2017 Time Performed: 06:32:36 PTAGE: 71 years EKG: Sinus rhythm with 1st degree A-V block LBBB Abnormal ECG PREVIOUS TRACING : 06/21/2017 11.02 DOCTOR: Sterling Romero Interpretating Date/Time 06/23/2017 15:04:45
[2017-06-23] MEDS: [UNRECOGNIZED DRUG - OTHER] SL SCH (21:00)
--- NOTE | 2017-06-23 22:57 | HHI.PR ---
Subjective Remarks When I am going home Objective Vital Signs Date Time Temp Pulse Resp B/P (MAP) Pulse Ox O2 Delivery O2 Flow Rate FiO2 06/23/17 18:00 70 06/23/17 17:00 68 06/23/17 16:00 68 06/23/17 15:30 98.2 70 18 95/59 (71) 97 06/23/17 15:00 69 06/23/17 14:00 68 06/23/17 13:00 70 06/23/17 12:00 68 06/23/17 11:24 98.0 70 18 94/57 (69) 92 06/23/17 11:00 78 06/23/17 10:00 74 06/23/17 09:27 98.2 75 18 106/59 (75) 97 06/23/17 09:00 82 06/23/17 08:00 82 06/23/17 07:00 78 06/23/17 06:01 79 06/23/17 05:00 77 06/23/17 04:00 75 06/23/17 03:00 78 06/23/17 03:00 97.8 73 17 111/68 (82) 94 06/23/17 02:00 74 06/23/17 01:00 76 06/23/17 00:00 79 06/22/17 23:00 98.7 78 18 120/77 (91) 95 06/22/17 23:00 78 I/O 06/22/17 06/22/17 06/22/17 06/23/17 06/23/17 06/23/17 07:00 15:00 23:00 07:00 15:00 23:00 Intake Total 480 ml 480 ml 480 ml Output Total 650 ml Balance 480 ml -170 ml 480 ml Intake Oral 480 ml 480 ml 480 ml Output Urine Total 650 ml # Voids 4 3 5 # Bowel Movements 0 Result Diagram: 06/21/17 1704 06/21/17 1704 Imaging Alert, fully oriented Lungs: ventilated Heart: S1, S2 regular, no gallop Abdomen: soft, no mass Ext: no edema Current Medications Medications (Trade) Dose Ordered Sig/Rupal Route Start Time Stop Time Status Last Admin (Eliquis) 5 mg BID PO 06/21/17 21:00 06/23/17 09:50 (Urecholine) 12.5 mg QID PO 06/21/17 13:00 06/23/17 18:53 (Cymbalta Dr) 30 mg DAILY PO 06/22/17 09:00 06/23/17 09:49 (Lasix) 20 mg DAILY PO 06/22/17 09:00 06/23/17 09:50 (Prinivil) 5 mg HS PO 06/21/17 21:00 06/22/17 21:30 (Protonix) 40 mg DAILY PO 06/22/17 09:00 06/23/17 09:50 (Vitamin B12) 1,000 mcg DAILY PO 06/22/17 09:00 06/22/17 09:00 (Lipitor) 10 mg HS PO 06/21/17 21:00 06/22/17 21:29 (Restoril) 15 mg HS PRN PO 06/21/17 11:15 06/22/17 21:33 Patient Own Medication PT OWN MED: SAT... DAILY SL 06/22/17 09:00 06/23/17 09:53 Patient Own Medication PT OWN MED: HYBRID 200MG O... DAILY@1400 SL 06/22/17 14:00 06/23/17 13:13 Patient Own Medication PT OWN MED: IND... HS SL 06/21/17 21:00 06/22/17 21:27 (Folate) 1 mg DAILY PO 06/22/17 14:30 06/23/17 09:50 Assessment and Plan Problem List: (1) Ventricular tachyarrhythmia ICD Codes: I47.2 - Ventricular tachycardia Plan: Patient on tikosyn for afib Has a defibrillator Developed episodes of slow ventricular arrhythmia Tikosyn DC last night Still some episodes today Some renal insufficiency. Also using medical cannabis. Will be observed overnight again. If no VT observed will be DH in AM case discussed with patient and family (2) Atrial fibrillation ICD Codes: I48.91 - Unspecified atrial fibrillation Plan: In sinus rhythm Carine Caicedo MD Jun 23, 2017 22:57
[2017-06-23] MEDS: LISINOPRIL 5 MG TAB PO SCH (23:10)
[2017-06-23] MEDS: ATORVASTATIN 20 MG TAB PO SCH (23:12)
[2017-06-24] VITALS (21 sets, daily range): BP systolic 104–126; BP diastolic 58–81; PULSE 47–94; RESP 18–20; TEMP 97.9–98.5; O2SAT 96–97
[2017-06-24] MEDS: APIXABAN 5 MG TABLET PO SCH (09:04)
[2017-06-24] MEDS: BETHANECHOL CHL 25 MG TAB PO SCH ×2 (09:04→15:17)
[2017-06-24] MEDS: CYANOCOBALAMIN 1,000 MCG TAB PO SCH (09:04)
[2017-06-24] MEDS: FOLIC ACID 1 MG TAB PO SCH (09:05)
[2017-06-24] MEDS: FUROSEMIDE 20 MG TAB PO SCH (09:05)
[2017-06-24] MEDS: PANTOPRAZOLE SOD 40 MG DELAYED RELEASE TAB PO SCH (09:05)
[2017-06-24] MEDS: DULoxetine HCl DR 30 MG CAP PO SCH (09:05)
--- NOTE | 2017-06-24 17:24 | MD ---
cc: Carine Caicedo MD DATE OF DISCHARGE: HISTORY: Mr. Saldana is a 71-year-old gentleman with a history of congestive heart failure, coronary artery disease, atrial fibrillation. He was admitted and cardioverted. Entresto was initiated. This gentleman is not a good candidate for re-do ablation. HOSPITAL COURSE: During hospitalization he was cardioverted into sinus rhythm. During the hospitalization, multiple episodes of wide complex tachyarrhythmia observed. Tikosyn was discontinued. The patient was observed; no significant new episodes observed. I have scheduled to discharge him today. PHYSICAL EXAMINATION: GENERAL: Alert, fully oriented. VITAL SIGNS: His blood pressure is 104/58, pulse 84, respiratory rate 18. LUNGS: Ventilated. CARDIOVASCULAR: S1 and S2, irregular. ABDOMEN: Obese. No mass. UPPER EXTREMITIES: With no edema. ELECTROCARDIOGRAM Episode of V-pacing, episode of left bundle branch block. MEDICATIONS ON DISCHARGE HOME: 1. The patient is going to renew his amiodarone tomorrow morning. 2. He is on Eliquis 5 mg twice daily. 3. B12 10 mg per day. 4. Urecholine 12.5 mg twice per day. 5. . 6. Folic acid. 7. Lasix. 8. Prinivil 5 mg bedtime. 9. Protonix. 10. Also the patient is on cannabis. Heart LC diary recommended. The patient is stable, doing well and will be discharged home. Case excessively discussed with him and his . If heart rate cannot be controlled, I would consider AV node modification and bi-V pacing. Carine Caicedo MD HS/ELOY , 05:04 PM , 05:23 PM
== END 2017-06-24 17:55 | disposition home or self-care (01) ==
LOC: HDOC 08:54 → HDIC 08:54 → HCIS 13:55 → HDOC 06-22 17:38
PROVIDERS: ATTEND Internal Medicine Interventional Cardiology
DX: I48.91 Unspecified atrial fibrillation (principal); I48.92 Unspecified atrial flutter; I10 Essential (primary) hypertension; I50.9 Heart failure, unspecified; I42.9 Cardiomyopathy, unspecified; Z95.810 Presence of automatic (implantable) cardiac defibrillator
CPT/HCPCS: 80053; 85025; 85610; 85730; 92960; 93005

== ENCOUNTER 2017-07-02 19:18 | Observation (INO) | payer MEDICARE, BC ==
[~2017-07-02] VITALS: Ht 177.8 cm; Wt 80.0 kg
[~2017-07-02 19:18] MED LIST changes: -AMIO200T PO; -FURO1TAB60 PO; -LISI-515 PO; +LISI-519 PO; -OXYC-395 PO; -TURMPOW PO
[2017-07-02 19:20] VITALS: BP 157/98; PULSE 105; RESP 18; TEMP 97.7; O2SAT 97
--- NOTE | 2017-07-02 20:41 | RADRPT ---
EXAM DATE/TIME: 07/02/2017 20:18 [place] COMPARISON: No previous studies available for comparison. INDICATIONS : Chest pain. MEDICAL HISTORY : Hypercholesterolemia. Hypertension SURGICAL HISTORY : Tonsillectomy. Pacemaker. Appendectomy. CABG, Valve replacement. Back surgery. ENCOUNTER: Initial ACUITY: 1 day PAIN SCORE: 5/10 LOCATION: Bilateral chest FINDINGS: There is trace left base atelectasis. Lungs otherwise clear. No pleural effusion seen. No pneumothora x. Heart size stable, upper limits of normal. Patient has had previous median sternotomy. Left subclavia n transvenous cardiac pacer/defibrillator with 2 leads again noted. There are abandoned epicardial pa cer leads. CONCLUSION: Trace left base atelectasis and borderline, stable compensated cardiomegaly. Emmett Bacon MD on July 02, 2017 at 20:39 Board Certified Radiologist. This report was verified electronically.
[2017-07-02 20:49] LABS: AUTOMATED NEUTROPHIL # 5.2 TH/MM3 (1.8-7.7); BASOPHIL # 0.1 TH/MM3 (0-0.2); BASOPHIL % 0.7 % (0.0-2.0); EOSINOPHIL # 0.2 TH/MM3 (0-0.4); EOSINOPHIL % 2.5 % (0.0-4.0); HEMOGLOBIN 17.1 GM/DL (13.0-17.0); LYMPH % 18.6 % (9.0-44.0); LYMPHOCYTE # 1.4 TH/MM3 (1.0-4.8); MEAN CELL VOLUME 86.5 FL (80.0-100.0); MEAN CORPUSCULAR HEMOGLOBIN 28.5 PG (27.0-34.0); MEAN PLATELET VOLUME 8.7 FL (7.0-11.0); MONO % 6.9 % (0.0-8.0); MONOCYTE # 0.5 TH/MM3 (0-0.9); NEUT % 71.3 % (16.0-70.0); PLATELET COUNT 210 TH/MM3 (150-450); RED BLOOD COUNT 6.01 MIL/MM3 (4.50-5.90); RED CELL DISTRIBUTION WIDTH 14.7 % (11.6-17.2); WHITE BLOOD COUNT 7.3 TH/MM3 (4.0-11.0)
[2017-07-02 21:11] LABS: BICARBONATE 28.5 MEQ/L (21.0-32.0); CALCIUM 10.4 MG/DL (8.5-10.1); CREATININE 1.49 MG/DL (0.60-1.30)
[2017-07-02 21:14] LABS: TROPONIN I 0.13 NG/ML (0.02-0.05)
[2017-07-02 22:13] VITALS: O2SAT 98
[2017-07-02 22:15] VITALS: BP 122/95; PULSE 104; RESP 16; O2SAT 99
[2017-07-02] MEDS ORDERED: SODIUM CHLORIDE 0.9% FLUSH 10 ML FLUSH IVF PRN (22:15)
[2017-07-02] MEDS ORDERED: OXYC-395 PO (22:16)
--- NOTE | 2017-07-02 22:31 | PD ---
HPI Chief Complaint: Syncope/Near-Syncope Time Seen by Provider: 22:09 Travel History International Travel<30 days: No Contact w/Intl Traveler<30days: No History of Present Illness HPI Patient is a 71-year-old male presenting to the emergency department for evaluation of a near syncopal episode. who is an RN is at bedside and is giving history of illness. She states that at approximately 1730 this evening patient became diaphoretic, pale, weak, short of breath and dizzy. She states that he appeared to be gagging due to nausea but did not vomit. Patient states that he felt his heart racing/pounding in his chest. He denied any actual chest pain no. There were 2 reported episodes like this this evening. Patient had a cardioversion last week with Dr. Caicedo. Patient has a history of cardiac amyloidosis, congestive heart failure, complex regional pain syndrome, atrial fibrillation. He has a pacemaker defibrillator. Symptom onset was sudden, symptom severity was moderate, there were no alleviating factors nor were there any exacerbating factors. PFSH Past Medical History Hx Anticoagulant Therapy: Yes Atrial Fibrillation: Yes Anxiety: Yes High Cholesterol: Yes Congestive Heart Failure: Yes Genetic Disorder: Yes (Cardiac amyloidosis) GERD: Yes Hepatitis: Yes (HX OF) Hypertension: Yes Medical other: Yes (Complex regional pain syndrome) Tetanus Vaccination: Unknown Influenza Vaccination: Yes Past Surgical History Appendectomy: Yes Body Medical Devices: Neurostimulator Cardiac Surgery: Yes (PACEMAKER, OPEN HEART SURGERY) Coronary Artery Bypass Graft: Yes (2001) Pacemaker: Yes Tonsillectomy: Yes Valve Replacement: Yes (2001) Other Surgery: Yes (VASECTOMY) Social History Alcohol Use: No Tobacco Use: No Substance Use: Yes (medical [facility]) Allergies-Medications (Allergen,Severity, Reaction): Coded Allergies: bacitracin (Verified Allergy, Mild, Rash, 07/02/17) neomycin (Verified Allergy, Mild, Rash, 07/02/17) polymyxin B (Verified Allergy, Mild, Rash, 07/02/17) Reported Meds & Prescriptions Reported Meds & Active Scripts Active Reported Amiodarone (Amiodarone HCl) 200 Mg Tab 200 Mg PO DAILY Oxycodone (Oxycodone HCl) 10 Mg Tab 10 Mg PO Q8HR Lisinopril 5 Mg Tab 5 Mg PO HS Crestor (Rosuvastatin Calcium) 10 Mg Tab 10 Mg PO HS Eliquis (Apixaban) 5 Mg Tab 5 Mg PO BID Cymbalta DR (Duloxetine HCl) 30 Mg Capdr 30 Mg PO DAILY Doxycycline (Doxycycline (Monohydrate)) 100 Mg Cap 100 Mg PO BID Bethanechol 25 Mg Tab 12.5 Mg PO QID Protonix (Pantoprazole Sodium) 40 Mg Tab 40 Mg PO DAILY Green Tea (Green Tea [place] Extract) 1 Each Capsule 2 Cap PO DAILY Fish Oil 1200 mg ([place]-3 Fatty Acids) 360 Mg-1,200 Mg Cap 1,000 Mg PO DAILY Review of Systems Except as stated in HPI: all other systems reviewed are Neg Eyes: No: Blurred Vision HENT: No: Headaches Cardiovascular: Positive: Palpitations, Tachycardia Respiratory: Positive: Shortness of Breath Gastrointestinal: Positive: Nausea, No: Abdominal Pain Musculoskeletal: No: Myalgias Neurologic: Positive: Dizziness Physical Exam Narrative GENERAL: Well-developed, well-nourished, alert elderly gentleman. Presenting in no acute distress. SKIN: Warm and dry. HEAD: Atraumatic. Normocephalic. EYES: Pupils equal and round. No scleral icterus. No injection or drainage. ENT: No nasal bleeding or discharge. Mucous membranes pink and moist. NECK: Trachea midline. No JVD. CARDIOVASCULAR: Irregularly irregular. Pacemaker to left chest wall RESPIRATORY: No accessory muscle use. Clear to auscultation. Breath sounds equal bilaterally. GASTROINTESTINAL: Abdomen soft, non-tender, nondistended. Hepatic and splenic margins not palpable. MUSCULOSKELETAL: Extremities without clubbing, cyanosis, or edema. No obvious deformities. NEUROLOGICAL: Awake and alert. No obvious cranial nerve deficits. Motor grossly within normal limits. Five out of 5 muscle strength in the arms and legs. Normal speech. PSYCHIATRIC: Appropriate mood and affect; insight and judgment normal. Data Data Last Documented VS Vital Signs Date Time Temp Pulse Resp B/P (MAP) Pulse Ox O2 Delivery O2 Flow Rate FiO2 07/02/17 22:15 104 16 122/95 (104) 99 Room Air 07/02/17 19:20 97.7 Orders Orders Electrocardiogram (07/02/17 19:31) Complete Blood Count With Diff (07/02/17 19:31) Basic Metabolic Panel (Bmp) (07/02/17 19:31) Ckmb (Isoenzyme) Profile (07/02/17 19:31) Troponin I (07/02/17 19:31) Chest, Single Ap (07/02/17:) Iv Access Insert/Monitor (07/02/17:) Ecg Monitoring (07/02/17:) Oxygen Administration (07/02/17:) Oximetry (07/02/17:) B-Type Natriuretic Peptide (07/02/17 22:09) Act Partial Throm Time (Ptt) (07/02/17 22:09) Prothrombin Time / Inr (Pt) (07/02/17 22:09) Magnesium (Mg) (07/02/17 22:09) Electrocardiogram (07/02/17:09) Sodium Chloride 0.9% Flush (Ns Flush) (07/02/17 22:15) Ckmb (Isoenzyme) Profile (07/02/17:) Troponin I (07/02/17:) Admit Order (Ed Use Only) (07/02/17 23:20) Labs Laboratory Tests Test 07/02/17 19:50 07/02/17 22:20 White Blood Count 7.3 TH/MM3 Red Blood Count 6.01 MIL/MM3 Hemoglobin 17.1 GM/DL Hematocrit 52.0 % Mean Corpuscular Volume 86.5 FL Mean Corpuscular Hemoglobin 28.5 PG Mean Corpuscular Hemoglobin Concent 33.0 % Red Cell Distribution Width 14.7 % Platelet Count 210 TH/MM3 Mean Platelet Volume 8.7 FL Neutrophils (%) (Auto) 71.3 % Lymphocytes (%) (Auto) 18.6 % Monocytes (%) (Auto) 6.9 % Eosinophils (%) (Auto) 2.5 % Basophils (%) (Auto) 0.7 % Neutrophils # (Auto) 5.2 TH/MM3 Lymphocytes # (Auto) 1.4 TH/MM3 Monocytes # (Auto) 0.5 TH/MM3 Eosinophils # (Auto) 0.2 TH/MM3 Basophils # (Auto) 0.1 TH/MM3 CBC Comment DIFF FINAL Differential Comment Blood Urea Nitrogen 17 MG/DL Creatinine 1.49 MG/DL Random Glucose 133 MG/DL Calcium Level 10.4 MG/DL Sodium Level 141 MEQ/L Potassium Level 4.5 MEQ/L Chloride Level 105 MEQ/L Carbon Dioxide Level 28.5 MEQ/L Anion Gap 8 MEQ/L Estimat Glomerular Filtration Rate 46 ML/MIN Total Creatine Kinase 88 U/L Troponin I 0.13 NG/ML Prothrombin Time 11.6 SEC Prothromb Time International Ratio 1.1 RATIO Activated Partial Thromboplast Time 28.2 SEC Magnesium Level 2.4 MG/DL MDM Medical Decision Making Medical Screen Exam Complete: Yes Emergency Medical Condition: Yes Medical Record Reviewed: Yes Interpretation(s) Laboratory Tests Test 07/02/17 19:50 07/02/17 22:20 White Blood Count 7.3 TH/MM3 Red Blood Count 6.01 MIL/MM3 Hemoglobin 17.1 GM/DL Hematocrit 52.0 % Mean Corpuscular Volume 86.5 FL Mean Corpuscular Hemoglobin 28.5 PG Mean Corpuscular Hemoglobin Concent 33.0 % Red Cell Distribution Width 14.7 % Platelet Count 210 TH/MM3 Mean Platelet Volume 8.7 FL Neutrophils (%) (Auto) 71.3 % Lymphocytes (%) (Auto) 18.6 % Monocytes (%) (Auto) 6.9 % Eosinophils (%) (Auto) 2.5 % Basophils (%) (Auto) 0.7 % Neutrophils # (Auto) 5.2 TH/MM3 Lymphocytes # (Auto) 1.4 TH/MM3 Monocytes # (Auto) 0.5 TH/MM3 Eosinophils # (Auto) 0.2 TH/MM3 Basophils # (Auto) 0.1 TH/MM3 CBC Comment DIFF FINAL Differential Comment Blood Urea Nitrogen 17 MG/DL Creatinine 1.49 MG/DL Random Glucose 133 MG/DL Calcium Level 10.4 MG/DL Sodium Level 141 MEQ/L Potassium Level 4.5 MEQ/L Chloride Level 105 MEQ/L Carbon Dioxide Level 28.5 MEQ/L Anion Gap 8 MEQ/L Estimat Glomerular Filtration Rate 46 ML/MIN Total Creatine Kinase 88 U/L Troponin I 0.13 NG/ML Prothrombin Time 11.6 SEC Prothromb Time International Ratio 1.1 RATIO Activated Partial Thromboplast Time 28.2 SEC Magnesium Level 2.4 MG/DL Vital Signs Date Time Temp Pulse Resp B/P (MAP) Pulse Ox O2 Delivery O2 Flow Rate FiO2 07/02/17 22:15 104 16 122/95 (104) 99 Room Air 07/02/17 22:13 98 Room Air 07/02/17 22:13 98 Room Air 07/02/17 19:20 97.7 105 18 157/98 117) 97 Room Air Differential Diagnosis Cardiac arrhythmia versus CHF versus pacemaker firing versus metabolic abnormality versus other Narrative Course Patient is well-appearing 71-year-old male presenting to emergency department for near syncopal episode/palpitations. Patient's vital signs are stable, he is mildly tachycardic. He recently had a cardioversion last week. Labs and imaging ordered and pending. [facility] was called to interrogate pacemaker. CBC with no acute abnormalities Chemistry with elevated creatinine of 1.49 Troponin 0 0.13 this may be elevated secondary to the cardioversion last week or secondary to new cardiac event. Patient's initial set of labs were drawn while waiting in triage. It has been 3 hours since initial set. A second troponin will be drawn now. Pacemaker was interrogated, there was no runs of V. tach or pacemaker firing. Patient did have an increased heart rate up to 128, he remains in atrial fibrillation. Discussed with my attending physician, patient will be admitted for observation. Discussed with Dr. Brewer who accepted admission. Admit orders placed. Diagnosis Primary Impression: Near syncope Additional Impression: Atrial fibrillation Qualified Codes: I48.91 - Unspecified atrial fibrillation Admitting Information Admitting Physician Requests: Observation Condition: Stable Jeannette Thomson Jul 02, 2017 22:30
[2017-07-02] MEDS ORDERED: AMIO200T PO (23:08)
[2017-07-02 23:14] LABS: INTERNATIONAL NORMALIZED RATIO 1.1 RATIO; PROTHROMBIN TIME - PATIENT 11.6 SEC (9.8-11.6)
[2017-07-02 23:28] LABS: TROPONIN I 0.12 NG/ML (0.02-0.05)
[2017-07-03] VITALS (8 sets, daily range): BP systolic 108–179; BP diastolic 84–120; PULSE 77–113; RESP 16–20; TEMP 97.7–98.1; O2SAT 93–98
[2017-07-03] MEDS ORDERED: SODIUM CHLORIDE 0.9% FLUSH 10 ML FLUSH IV FLUSH PRN
[2017-07-03 00:57] LABS: ALT (GPT) 46 U/L (12-78)
[2017-07-03 00:59] LABS: ALKALINE PHOSPHATASE 148 U/L (45-117); TOTAL BILIRUBIN ADULT 0.7 MG/DL (0.2-1.0); TOTAL PROTEIN 7.1 GM/DL (6.4-8.2)
[2017-07-03 01:00] LABS: ALBUMIN 3.8 GM/DL (3.4-5.0); AST (GOT) 33 U/L (15-37); BICARBONATE 24.4 MEQ/L (21.0-32.0); BLOOD UREA NITROGEN 17 MG/DL (7-18); CALCIUM 10.7 MG/DL (8.5-10.1); CHLORIDE 104 MEQ/L (98-107); GLOMERULAR FILTRATION RATE 46 ML/MIN (>89); GLUCOSE,RANDOM 126 MG/DL (74-106); SODIUM (NA) 141 MEQ/L (136-145)
--- NOTE | 2017-07-03 02:31 | HHI.HP ---
[facility] Derrick Dai MD Admission Diagnosis NEAR SYNCOPE, A FIB Diagnoses: Travel History International Travel<30 Days: No Contact w/Intl Traveler <30 Da: No History of Present Illness 71-year-old male with a past medical history significant for atrial fibrillation anticoagulated on Eliquis status post ablation in April and cardioversion one week ago, cardiac amyloidosis, regional pain syndrome, hypertension, hyperlipidemia and CHF (no recent echo) Zentz to the emergency department with new onset dizziness and episodes of diaphoresis. The patient's is bedside who states that patient did not lose consciousness however he became diaphoretic and pale during his dizzy episodes. The patient denies any palpitations. He denies any chest pain or shortness of breath. No fever/ chills. No nausea/vomiting/diarrhea. No lateralizing signs/symptoms. On arrival to the emergency department the patient was found to be in atrial fibrillation with rapid ventricular response. His pacemaker was interrogated in the ED which showed no runs of ventricular tachycardia or pacemaker firing. Review of Systems Except as stated in HPI: all other systems reviewed are Neg Past Family Social History Past Medical History Cardiac amyloidosis Regional pain syndrome in the bilateral knees Atrial fibrillation anticoagulated on Eliquis Hypertension Hyperlipidemia CHF (no recent echo) Past Surgical History Cardioversion one week ago Ablation in April and CABG 2 in 2001 AICD placement Spinal stimulator placement Spinal decompression Laminectomy Tonsillectomy Appendectomy Reported Medications Reported Meds & Active Scripts Active Reported Amiodarone (Amiodarone HCl) 200 Mg Tab 200 Mg PO DAILY Oxycodone (Oxycodone HCl) 10 Mg Tab 10 Mg PO Q8HR Lisinopril 5 Mg Tab 5 Mg PO HS Crestor (Rosuvastatin Calcium) 10 Mg Tab 10 Mg PO HS Eliquis (Apixaban) 5 Mg Tab 5 Mg PO BID Cymbalta DR (Duloxetine HCl) 30 Mg Capdr 30 Mg PO DAILY Doxycycline (Doxycycline (Monohydrate)) 100 Mg Cap 100 Mg PO BID Bethanechol 25 Mg Tab 12.5 Mg PO QID Protonix (Pantoprazole Sodium) 40 Mg Tab 40 Mg PO DAILY Green Tea (Green Tea [place] Extract) 1 Each Capsule 2 Cap PO DAILY Fish Oil 1200 mg ([place]-3 Fatty Acids) 360 Mg-1,200 Mg Cap 1,000 Mg PO DAILY Allergies: Coded Allergies: bacitracin (Verified Allergy, Mild, Rash, 07/02/17) neomycin (Verified Allergy, Mild, Rash, 07/02/17) polymyxin B (Verified Allergy, Mild, Rash, 07/02/17) Family History Father with CAD Social History Negative for alcohol and tobacco. Positive medical marijuana. No illicit drugs. Physical Exam Vital Signs Vital Signs Date Time Temp Pulse Resp B/P (MAP) Pulse Ox O2 Delivery O2 Flow Rate FiO2 07/02/17 22:15 104 16 122/95 (104) 99 Room Air 07/02/17 22:13 98 Room Air 07/02/17 22:13 98 Room Air 07/02/17 19:20 97.7 105 18 157/98 (117) 97 Room Air Physical Exam GENERAL: male sitting up in bed SKIN: No rashes, ecchymoses or lesions. Cool and dry. HEAD: Atraumatic. Normocephalic. No temporal or scalp tenderness. EYES: Pupils equal round and reactive. Extraocular motions intact. No scleral icterus. No injection or drainage. ENT: Nose without bleeding, purulent drainage or septal hematoma. Throat without erythema, tonsillar hypertrophy or exudate. Uvula midline. Airway patent. NECK: Trachea midline. No JVD or lymphadenopathy. Supple, nontender, no meningeal signs. CARDIOVASCULAR: Tachycardic with irregularly irregular rhythm without murmurs/ rubs/gallops RESPIRATORY: Clear to auscultation. Breath sounds equal bilaterally. No wheezes , rales, or rhonchi. GASTROINTESTINAL: Abdomen soft, non-tender, nondistended. No hepato-splenomegaly , or palpable masses. No guarding. MUSCULOSKELETAL: Extremities without clubbing, cyanosis, or edema. No joint tenderness, effusion, or edema noted. No calf tenderness. NEUROLOGICAL: Awake and alert. Cranial nerves II through XII intact. Motor and sensory grossly within normal limits. Normal speech. Laboratory Laboratory Tests Test 07/02/17 19:50 07/02/17 22:20 07/02/17 23:54 White Blood Count 7.3 Red Blood Count 6.01 Hemoglobin 17.1 Hematocrit 52.0 Mean Corpuscular Volume 86.5 Mean Corpuscular Hemoglobin 28.5 Mean Corpuscular Hemoglobin Concent 33.0 Red Cell Distribution Width 14.7 Platelet Count 210 Mean Platelet Volume 8.7 Neutrophils (%) (Auto) 71.3 Lymphocytes (%) (Auto) 18.6 Monocytes (%) (Auto) 6.9 Eosinophils (%) (Auto) 2.5 Basophils (%) (Auto) 0.7 Neutrophils # (Auto) 5.2 Lymphocytes # (Auto) 1.4 Monocytes # (Auto) 0.5 Eosinophils # (Auto) 0.2 Basophils # (Auto) 0.1 CBC Comment DIFF FINAL Differential Comment Blood Urea Nitrogen 17 17 Creatinine 1.49 1.50 Random Glucose 133 126 Calcium Level 10.4 10.7 Sodium Level 141 141 Potassium Level 4.5 4.5 Chloride Level 105 104 Carbon Dioxide Level 28.5 24.4 Anion Gap 8 13 Estimat Glomerular Filtration Rate 46 46 Total Creatine Kinase 88 89 Troponin I 0.13 0.12 Prothrombin Time 11.6 Prothromb Time International Ratio 1.1 Activated Partial Thromboplast Time 28.2 Magnesium Level 2.4 B-Type Natriuretic Peptide 268 Total Protein 7.1 Albumin 3.8 Alkaline Phosphatase 148 Aspartate Amino Transf (AST/SGOT) 33 Alanine Aminotransferase (ALT/SGPT) 46 Total Bilirubin 0.7 Result Diagram: 07/02/17194907/02/17 8776 Caprini VTE Risk Assessment Caprini VTE Risk Assessment: Mod/High Risk (score >= 2) Caprini Risk Assessment Model Point Value = 1 Point Value = 2 Point Value = 3 Point Value = 5 Age 41-60 Minor surgery BMI > 25 kg/m2 Swollen legs Varicose veins or History of unexplained or recurrent spontaneous Oral contraceptives or hormone replacement Sepsis (< 1 month) Serious lung disease, including pneumonia (< 1 month) Abnormal pulmonary function Acute myocardial infarction Congestive heart failure (< 1 month) History of inflammatory bowel disease Medical patient at bed rest Age 61-74 Arthroscopic surgery Major open surgery (> 45 min) Laparoscopic surgery (> 45 min) Malignancy Confined to bed (> 72 hours) Immobilizing plaster cast Central venous access Age >= 75 History of VTE Family history of VTE Factor V Leiden Prothrombin [id number] Lupus anticoagulant Anticardiolipin antibodies Elevated serum homocysteine Heparin-induced thrombocytopenia Other congenital or acquired thrombophilia Stroke (< 1 month) Elective arthroplasty Hip, pelvis, or leg fracture Acute spinal cord injury (< 1 month) Prophylaxis Regimen Total Risk Factor Score Risk Level Prophylaxis Regimen 0-1 Low Early ambulation 2 Moderate Order ONE of the following: *Sequential Compression Device (SCD) *Heparin 5000 units SQ BID 3-4 Higher Order ONE of the following medications: *Heparin 5000 units SQ TID *Enoxaparin/Lovenox 40 mg SQ daily (WT < 150 kg, CrCl > 30 mL/min) *Enoxaparin/Lovenox 30 mg SQ daily (WT < 150 kg, CrCl > 10-29 mL/min) *Enoxaparin/Lovenox 30 mg SQ BID (WT < 150 kg, CrCl > 30 mL/min) AND/OR *Sequential Compression Device (SCD) 5 or more Highest Order ONE of the following medications: *Heparin 5000 units SQ TID (Preferred with Epidurals) *Enoxaparin/Lovenox 40 mg SQ daily (WT < 150 kg, CrCl > 30 mL/min) *Enoxaparin/Lovenox 30 mg SQ daily (WT < 150 kg, CrCl > 10-29 mL/min) *Enoxaparin/Lovenox 30 mg SQ BID (WT < 150 kg, CrCl > 30 mL/min) AND *Sequential Compression Device (SCD) Assessment and Plan Assessment and Plan Assessment/plan: 1. Atrial fibrillation with rapid ventricular response EKG significant for A. fib with RVR, personally reviewed Continue Amiodarone, Eliquis Dr. Caicedo consulted, appreciate assistance 2. Elevated troponin Patient's initial troponin 0.13, repeat 0.12 Denies chest pain Likely secondary to recent cardioversion or demand 3. Hypertension/hyperlipidemia/cardiac amyloidosis Continue home medications 4. History of CHF Echo pending No clinical signs of failure at this time 5. Regional pain syndrome Continue home oxycodone 6. Presyncope Likely secondary to atrial fibrillation Carotid ultrasound, echo pending 7. CKD Creatinine 1.5, baseline Monitor renal function FEN NPO Electrolytes: monitor and replete prn Eliquis NS at 100 cc/hr Charlotte Brewer MD Jul 03, 2017 02:31
[2017-07-03] MEDS: SODIUM CHLOR 0.9% 1000 ML INJ 1,000 ML IV SCH ×2 (03:03→12:10)
[2017-07-03 06:31] LABS: AUTOMATED NEUTROPHIL # 4.7 TH/MM3 (1.8-7.7); BASOPHIL % 0.5 % (0.0-2.0); EOSINOPHIL # 0.2 TH/MM3 (0-0.4); EOSINOPHIL % 2.3 % (0.0-4.0); HEMATOCRIT 50.1 % (39.0-51.0); HEMOGLOBIN 16.7 GM/DL (13.0-17.0); LYMPH % 25.2 % (9.0-44.0); LYMPHOCYTE # 1.9 TH/MM3 (1.0-4.8); MEAN CELL VOLUME 86.1 FL (80.0-100.0); MEAN CORPUSCULAR HEMOGLOBIN 28.7 PG (27.0-34.0); MEAN CORPUSCULAR HGB CONC 33.3 % (32.0-36.0); MEAN PLATELET VOLUME 8.4 FL (7.0-11.0); MONO % 8.3 % (0.0-8.0); MONOCYTE # 0.6 TH/MM3 (0-0.9); NEUT % 63.7 % (16.0-70.0); PLATELET COUNT 203 TH/MM3 (150-450); RED BLOOD COUNT 5.82 MIL/MM3 (4.50-5.90); RED CELL DISTRIBUTION WIDTH 14.7 % (11.6-17.2); WHITE BLOOD COUNT 7.3 TH/MM3 (4.0-11.0)
--- NOTE | 2017-07-03 09:12 | RADRPT ---
EXAM DATE/TIME: 07/03/2017 08:29 [place] COMPARISON: US CAROTID ARTERIES, March 16, 2017, 14:02. INDICATIONS : Syncope. MEDICAL HISTORY : Congestive heart failure. Hypercholesterolemia. Gastroparesis. Complex regional pain syndrome. Afib x 3. HTN. GERD. Hepatitis. Skin cancer. Cardiac amyloidosis. Anxiety. Anticoagulant therapy, Eliquis. SURGICAL HISTORY : Tonsillectomy. Pacemaker. Appendectomy. Spinal cord stimulator. Cardiac ablations. CABG x2. Aorta rep air. Vasectomy. Lumber lamenectomy. ENCOUNTER: Subsequent ACUITY: 2 days PAIN SCORE: 0/10 LOCATION: Bilateral neck PEAK SYSTOLIC VELOCITIES (cm/sec): ICA/CCA RATIO: Right: 1.6 Left: 1.1 ICA: Right: 66 Left: 50 CCA: Right: 40 Left: 44 ECA: Right: 57 Left: 72 VERTEBRAL: Right: 30 antegrade Left: 30 antegrade Elevated flow velocities and ICA/CCA ratios have been found to correlate with increased degrees of vessel stenosis, calculated as percentage of diameter relative to a normal segment of distal ICA/CCA FINDINGS: RIGHT CAROTID: No significant stenosis is visualized. Mild plaque identified within the carotid bulb. The waveforms are within normal limits. LEFT CAROTID: No significant stenosis is visualized. Mild plaque identified within the carotid bulb. The waveforms are within normal limits. VERTEBRAL ARTERIES: Antegrade flow is seen in both vertebral arteries. MISCELLANEOUS: None. CONCLUSION: No evidence of significant stenosis on either side. However, the relatively low velocities identified in the right and left internal carotid artery may reflect a low output state of the heart. This woul d be consistent with the patient's clinical history of congestive heart failure.. Ashanti Campos MD on July 03, 2017 at 9:08 Board Certified Radiologist. This report was verified electronically.
[2017-07-03] MEDS: PANTOPRAZOLE SOD 40 MG DELAYED RELEASE TAB PO SCH (09:19)
[2017-07-03] MEDS: DULoxetine HCl DR 30 MG CAP PO SCH (09:19)
[2017-07-03] MEDS: APIXABAN 5 MG TABLET PO SCH ×2 (09:19→20:15)
[2017-07-03] MEDS: AMIODARONE 200 MG TAB PO SCH (09:19)
[2017-07-03] MEDS: BETHANECHOL CHL 25 MG TAB PO SCH ×4 (09:20→20:15)
[2017-07-03] MEDS: SODIUM CHLORIDE 0.9% FLUSH 10 ML FLUSH IV FLUSH SCH ×2 (09:20→20:13)
--- NOTE | 2017-07-03 11:55 | HHI.PR ---
Subjective Remarks Follow-up visit A. fib RVR, dizziness. Patient seen and examined today. at the bedside. States he is doing a lot better. Denies any chest pain, palpitations, headaches, dizziness. Able to stand up without any difficulty. Denies shortness of breath or dyspnea. Objective Vitals Vital Signs Date Time Temp Pulse Resp B/P (MAP) Pulse Ox O2 Delivery O2 Flow Rate FiO2 07/03/17 11:30 97.7 93 18 108/84 (92) 96 07/03/17 07:14 97.8 84 18 127/93 (104) 96 07/03/17 05:24 95 07/03/17 05:19 98.0 77 16 139/92 (108) 98 07/03/17 04:14 07/03/17 03:06 89 16 179/89 (119) 96 Room Air 07/02/17 22:15 104 16 122/95 (104) 99 Room Air 07/02/17 22:13 98 Room Air 07/02/17 22:13 98 Room Air 07/02/17 19:20 97.7 105 18 157/98 (117) 97 Room Air Result Diagram: 07/03/17 0557 07/02/17 2354 Imaging Last Impressions Carotid Artery Ultrasound 07/03/17 0000 Signed Impressions: Service Date/Time: Monday, July 03, 2017 08:29 - CONCLUSION: No evidence of significant stenosis on either side. However, the relatively low velocities identified in the right and left internal carotid artery may reflect a low output state of the heart. This would be consistent with the patient's clinical history of congestive heart failure.. Ashanti Campos MD Chest X-Ray 07/02/17 193 Signed Impressions: Service Date/Time: Sunday, July 02, 2017 20:18 - CONCLUSION: Trace left base atelectasis and borderline, stable compensated cardiomegaly. Emmett Bacon MD Objective Remarks GENERAL: This is a well-nourished, well-developed patient, in no apparent distress. SKIN: Warm and dry. Tanned. HEENT: Normocephalic. Pupils equal round and reactive. Nose without bleeding. Airway patent. NECK: Trachea midline. No JVD. Supple. CARDIOVASCULAR: Irregular heart rate without murmurs, gallops, or rubs. RESPIRATORY: Clear to auscultation. Breath sounds equal bilaterally. No wheezes , rales, or rhonchi. GASTROINTESTINAL: Abdomen soft, non-tender, nondistended. Bowel Sounds normoactive x4. MUSCULOSKELETAL: Extremities without clubbing, cyanosis, or edema. NEUROLOGICAL: Awake and alert. Oriented to time, place, person. No focal neuro deficit. Moves all extremities. Normal speech. A/P Problem List: (1) History of aortic valve replacement ICD Code: Z95.2 - Presence of prosthetic heart valve Status: Chronic (2) S/P ablation of atrial flutter ICD Code: Z98.890 - Other specified postprocedural states; Z86.79 - Personal history of other diseases of the circulatory system (3) Atrial fibrillation ICD Code: I48.91 - Unspecified atrial fibrillation (4) Near syncope ICD Code: R55 - Syncope and collapse Status: Acute Assessment and Plan Patient is a 71-year-old male with a past medical history significant for atrial fibrillation anticoagulated on Eliquis status post ablation in April and cardioversion one week ago, cardiac amyloidosis, regional pain syndrome, hypertension, hyperlipidemia and CHF (no recent echo) Zentz to the emergency department with new onset dizziness and episodes of diaphoresis. Atrial fibrillation with rapid ventricular response EKG significant for A. fib with RVR reviewed Continue Amiodarone, Meagan Patient is being followed by Dr. Caicedo. Cardiology consulted, appreciate assistance Elevated troponin Patient's initial troponin 0.13, repeat 0.12 -->0.14 Denies chest pain Likely secondary to recent cardioversion or demand Hypertension/hyperlipidemia/cardiac amyloidosis Continue home medications History of CHF Echo pending No clinical signs of failure at this time. BNP 268 DC IV fluids for now Regional pain syndrome Continue home oxycodone Presyncope Likely secondary to atrial fibrillation Carotid ultrasound showed no evidence of significant stenosis on either side. However, the relatively low velocities identified in the right and left internal carotid artery may reflect a low output state of the heart. This would be consistent with patient's clinical history of congestive heart failure. Echo pending CKD Creatinine 1.5, baseline Monitor renal function DVT prop Eliquis Discharge Planning Plan to discharge home when cleared by cardiology. Problem Qualifiers (1) Atrial fibrillation: Qualified Codes: I48.91 - Unspecified atrial fibrillation Preeti Pinedo Jul 03, 2017 11:55
[2017-07-03] MEDS ORDERED: FATTY ACIDS PO SCH (12:15)
[2017-07-03] MEDS ORDERED: OMEGA PO SCH (12:15)
[2017-07-03] MEDS ORDERED: GREEN TEA LEAF EXTRACT PO SCH (12:15)
[2017-07-03] MEDS ORDERED: PILL SPLITTER OTHER PRN (13:15)
[2017-07-03 15:02] LABS: BICARBONATE 25.7 MEQ/L (21.0-32.0); CALCIUM 9.8 MG/DL (8.5-10.1); CREATININE 1.22 MG/DL (0.60-1.30)
--- NOTE | 2017-07-03 16:57 | MB ---
cc: Navin Posey MD DATE OF CONSULT: 07/03/2017 REASON FOR CONSULTATION: Near syncope, recurrent atrial fibrillation. HISTORY OF PRESENT ILLNESS: The patient is a 71-year-old white male, followed in our office by Dr. Carine Caicedo, with a history of senile cardiac amyloidosis, coronary artery disease, aortic valve disease, paroxysmal atrial flutter and paroxysmal atrial fibrillation, who was brought to the hospital after 2 near syncopal episodes. The patient just had a cardioversion done about a week ago after which he was tried on Tikosyn therapy, which apparently resulted in ventricular tachycardia. Yesterday evening at about 6:00 p.m. right before eating dinner, he developed 2 separate episodes lasting about half hour each of lightheadedness/dizziness associated with nausea, clamminess, diaphoresis, and pallor. He never lost consciousness with each of these 2 episodes. He denies any recent chest pain, palpitations, fevers, flu symptoms, diarrhea, vomiting, paroxysmal nocturnal dyspnea, or pedal edema. In the emergency department, he was found to be in atrial fibrillation with a rapid ventricular response. The patient also states that he has had troubles with possible acid reflux and possible recurrence of esophageal stricture. PAST MEDICAL HISTORY: 1. 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 2. Coronary artery disease and aortic valve disease, status post 2 vessel bypass surgery and aortic valve replacement 10/14/2001 in [place], [place]. His valve was a 25 mm porcine aortic valve prosthesis. The 2 bypass grafts were a left internal mammary artery to the LAD and vein graft to the ramus intermedius. His last heart catheterization was 2014 showing widely patent bypass grafts. 3. Paroxysmal atrial flutter, status post ablation in 2012. 4. Ventricular tachycardia, status post dual chamber AICD St. Lexx implantation, 07/2014. 5. History of esophageal strictures, status post dilations. 6. Reduced ejection fraction of approximately 40% reportedly with severe concentric left ventricular hypertrophy demonstrated by echo last November. 7. Paroxysmal atrial fibrillation, status post ablation 05/04/2017 and cardioversion 06/21/2017. CARDIAC MEDICATIONS AT HOME: 1. Amiodarone 200 mg daily. 2. Lisinopril 5 mg at bedtime. 3. Crestor 10 mg at bedtime. 4. Apixaban 5 mg b.i.d. 5. Fish oil 1000 mg daily. ALLERGIES: BACITRACIN, NEOMYCIN, AND POLYMYXIN B. FAMILY HISTORY: Noncontributory. SOCIAL HISTORY: The patient denies any history of alcohol or tobacco abuse. REVIEW OF SYSTEMS: As in history of present illness, otherwise negative or noncontributory. He also denies headache, abdominal pain, melena, bright red blood per rectum, dyspepsia, fevers, and recent flu. PHYSICAL EXAMINATION: VITAL SIGNS: His blood pressure 108/84 with a pulse of 93, respirations 18. GENERAL: He is a well-developed, well-nourished white male, in no acute distress. NECK: Jugular venous pressure is normal. Carotid pulses are 2+ bilaterally and without bruits. CHEST: Reveals clear lungs theodore. CARDIAC: He has an irregularly irregular rhythm with a grade II/ systolic murmur heard at the left upper sternal border. The S2 heart sound is normal. No gallop is audible. ABDOMEN: He has a soft, nontender abdomen. Bowel sounds are present. There is no definite hepatosplenomegaly. EXTREMITIES: Reveals no clubbing, cyanosis, or edema. EKG shows atrial fibrillation with a rapid ventricular response, nonspecific intraventricular conduction delay, nonspecific ST and T-wave abnormalities. LABORATORY DATA: Includes WBC 7.3, hemoglobin 16.7, platelets 203. Potassium 4.2, BUN 14, creatinine 1.22. Troponin 0.14, CK 89. IMAGING STUDIES: Chest x-ray shows no acute disease. IMPRESSION: Near syncope, recurrent atrial fibrillation with transient elevated heart rates in a 71-year-old white male with a history of senile cardiac amyloidosis, reduced ejection fraction of 40%, coronary artery disease, aortic valve disease, paroxysmal atrial arrhythmias status post a number of ablations, and esophageal strictures. The patient is status post recent cardioversion and atrial fibrillation ablation about 2 months ago. He also apparently has been tried on Tikosyn, which resulted in sustained ventricular tachycardia. Overall, I doubt the atrial fibrillation itself resulted in the near-syncopal episodes. I suspect these near-syncopal episodes were vasovagal mediated. There is overall no evidence for acute coronary syndrome. I suspect the slightly elevated troponin levels are due to the tachycardic heart rates on presentation. He has had no recent angina symptoms. There is no definite evidence for congestive heart failure. Interrogation of his automatic implantable cardioverter-defibrillator shows normal function with approximately 50% atrial fibrillation burden in the last week. No ventricular tachycardia has been recorded. RECOMMENDATIONS: 1. Consider a GI evaluation by his spare person, Dr. Singleton for problems with dysphagia, which may be precipitating these episodes of lightheadedness, due to increased vagal tone. 2. At this time, as his heart rate appears to be under control, continue his usual cardiac medications. Also start beta queenie therapy. 3. Will leave any decisions regarding atrial fibrillation treatment in the future to Dr. Carine Caicedo when he returns from out of town. MD THERESA Spring/LUCIAN , 04:22 PM , 04:55 PM DARIUS
--- NOTE | 2017-07-03 17:58 | EKG ---
Date Performed: 07/02/2017 Time Performed: 19:45:47 PTAGE: 71 years EKG: It appears to be an electronic ventricular pacemaker competing with underlying rhythm that appears to be atrial fibrillation withthe rapid ventricular response. Left bundle branch block patter n Compared to previous tracing, previous tracing showed left bundle branch block at first degree AV b lock, this tracing shows what appears to be atrial fibrillation competing with ventricular pacemaker. ABNORMAL ECG PREVIOUS TRACING : 06/22/2017 06.32 DOCTOR: Dawson Fierro Interpretating Date/Time 07/03/2017 17:56:28
--- NOTE | 2017-07-03 18:00 | EKG ---
Date Performed: 07/02/2017 Time Performed: 22:06:33 PTAGE: 71 years EKG: There appears to be Sinus rhythm with first degree AV block competing with a ventricular based pacemaker. There may be runs of PACs p resent as well. Left bundle branch block pattern Compared to previous tracing, underlying pacemaker a ctivity is still seen. The underlying rhythm appears to be sinus rhythm on this tracing compared to p robable atrial fibrillation on the previous. ABNORMAL ECG PREVIOUS TRACING : 07/02/2017 19.45 DOCTOR: Dawson Fierro Interpretating Date/Time 07/03/2017 17:58:43
[2017-07-03] MEDS: DOXYCYCLINE HYCLATE 100 MG CAP PO SCH (20:15)
[2017-07-03] MEDS: CARVEDILOL 3.125 MG TAB PO SCH (20:15)
[2017-07-03] MEDS ORDERED: ATORVASTATIN 20 MG TAB PO SCH (21:00)
[2017-07-03] MEDS ORDERED: LISINOPRIL 5 MG TAB PO SCH (21:00)
--- NOTE | 2017-07-03 21:32 | MG ---
cc: Samir Murillo MD EEG RECORD #[id number] A 71-year-old, history of paleness, weakness, diaphoretic. 5-6 Hz, theta activity, 20-50 microvolts with intermittent 2-3 Hz delta activity occurring. Good EEG variability and reactivity. attenuation slowing suggestive of drowsiness. Good incremental background during arousal EEG incrementing up to 7-8 Hz better alpha formation, followed by drowsy state. Reduced driving with photic stimulation. Single lead EKG showing dropped beats, premature contractions. INTERPRETATION: Minimal encephalopathy in sleep state. Clinical correlation. Samir Murillo MD MG/rt , 09:14 PM , 09:31 PM MTDD
[2017-07-04] VITALS: BP 143/69; PULSE 100; RESP 18; TEMP 98.3; O2SAT 97
[2017-07-04] MEDS ORDERED: ONDANSETRON HCL 4 MG/2 ML VIAL IV PUSH PRN (00:45)
[2017-07-04 04:09] VITALS: BP 114/74; PULSE 85; RESP 18; TEMP 98.6; O2SAT 93
[2017-07-04 07:26] VITALS: PULSE 76
[2017-07-04 09:19] VITALS: BP 100/75; PULSE 82; RESP 17; TEMP 97.3; O2SAT 95
[2017-07-04] MEDS: APIXABAN 5 MG TABLET PO SCH (09:37)
[2017-07-04] MEDS: DULoxetine HCl DR 30 MG CAP PO SCH (09:37)
[2017-07-04] MEDS: AMIODARONE 200 MG TAB PO SCH (09:37)
[2017-07-04] MEDS: DOXYCYCLINE HYCLATE 100 MG CAP PO SCH (09:38)
[2017-07-04] MEDS: PANTOPRAZOLE SOD 40 MG DELAYED RELEASE TAB PO SCH (09:38)
[2017-07-04] MEDS: BETHANECHOL CHL 25 MG TAB PO SCH (09:38)
[2017-07-04] MEDS: CARVEDILOL 3.125 MG TAB PO SCH (09:38)
[2017-07-04] MEDS: SODIUM CHLORIDE 0.9% FLUSH 10 ML FLUSH IV FLUSH SCH (09:39)
--- NOTE | 2017-07-04 10:57 | ECHRPT ---
Indication: syncope CONCLUSIONS Normal left ventricular size. Severe concentric left ventricular hypertrophy. The left ventricular systolic function is moderately to severely reduced with an estimated ejection fraction of 30%. The right ventricular systoilc function is decreased. The left atrial size is upper limits of normal. Moderate mitral valve regurgitation. The aortic valve prosthesis is normal to two-dimensional, color flow and Doppler interrogation. There is trace tricuspid valve regurgitation. The estimated pulmonary arterial pressure is 39 mmHg. BP: / HR: Rhythm: MEASUREMENTS (Male / Female) Normal Values Technical Quality: 2D ECHO LV Diastolic Diameter PLAX 4.1 cm 4.2 - 5.9 / 3.9 - 5.3 cm LV Systolic Diameter PLAX 3.7 cm IVS Diastolic Thickness 2.2 cm 0.6 - 1.0 / 0.6 - 0.9 cm LVPW Diastolic Thickness 1.6 cm 0.6 - 1.0 / 0.6 - 0.9 cm LV Relative Wall Thickness 0.9 RV Internal Dim ED PLAX 3.1 cm LA Systolic Diameter LX 4.7 cm 3.0 - 4.0 / 2.7 - 3.8 cm DOPPLER Mitral E Point Velocity 114.0 cm/s Mitral A Point Velocity 33.9 cm/s Mitral E to A Ratio 3.4 TR Peak Velocity 293.0 cm/s TR Peak Gradient 34.3 mmHg FINDINGS LEFT VENTRICLE Normal left ventricular size. Severe concentric left ventricular hypertrophy. The left ventricular systolic function is moderately to severely reduced with an estimated ejection fraction in of 305%. RIGHT VENTRICLE The right ventricular systoilc function is decreased. LEFT ATRIUM The left atrial size is upper limits of normal. RIGHT ATRIUM There is a pacemaker wire present in the right atrial cavity. ATRIAL SEPTUM Normal atrial septal thickness without atrial level shunting by limited color doppler interrogation. AORTA The aortic root and proximal ascending aorta are normal in size on limited imaging. MITRAL VALVE Moderate mitral valve regurgitation. AORTIC VALVE The aortic valve prosthesis is normal to two-dimensional, color flow and Doppler interrogation. TRICUSPID VALVE There is trace tricuspid valve regurgitation. The estimated pulmonary arterial pressure is 39 mmHg. PULMONARY VALVE The pulmonary valve is not well visualized. VESSELS The inferior vena cava is normal in size. PERICARDIUM No pericardial effusion. Prasanna Rascon MD, FACC (Electronically Signed) Final Date:04 July 2017 10:55
--- NOTE | 2017-07-04 11:17 | PD.CARD.PN ---
Subjective Subjective Remarks Feeling better today. Nausea, vomiting last night x one, none this morning. No CP, dyspnea, dizziness, near syncope, palpitations. Objective Medications Item Value Date Time Lisinopril 5 mg 07/03/172099 (Prinivil) HS/PO 07/03/172014 Atorvastatin 20 mg 07/03/172099 Calcium HS/PO 07/03/172014 (Lipitor) Carvedilol 3.125 mg 07/03/172099 (Coreg) Q12HR/PO 07/04/17937 Amiodarone HCl 200 mg 07/03/17899 (Cordarone) DAILY/PO 07/04/17936 Apixaban 5 mg 07/03/17899 (Eliquis) BID/PO 07/04/17936 Current Medications Medications (Trade) Dose Ordered Sig/Rupal Route Start Time Stop Time Status Last Admin (NS Flush) 2 ml UNSCH PRN IV FLUSH 07/03/17 00:00 (NS Flush) 2 ml BID IV FLUSH 07/03/17 09:00 07/04/17 09:39 (Cordarone) 200 mg DAILY PO 07/03/17 09:00 07/04/17 09:37 (Eliquis) 5 mg BID PO 07/03/17 09:00 07/04/17 09:37 (Urecholine) 12.5 mg QID PO 07/03/17 09:00 07/04/17 09:38 (Cymbalta Dr) 30 mg DAILY PO 07/03/17 09:00 07/04/17 09:37 (Prinivil) 5 mg HS PO 07/03/17 21:00 07/03/17 20:15 (Protonix) 40 mg DAILY PO 07/03/17 09:00 07/04/17 09:38 (Lipitor) 20 mg HS PO 07/03/17 21:00 07/03/17 20:15 (Roxicodone) 10 mg Q8HR PO 07/03/17 06:00 07/04/17 06:04 (Vibramycin) 100 mg BID PO 07/03/17 21:00 07/04/17 09:38 (Pill Splitter) 1 ea UNSCH PRN OTHER 07/03/17 13:15 07/03/17 13:30 (Coreg) 3.125 mg Q12HR PO 07/03/17 21:00 07/04/17 09:38 (Zofran Inj) 4 mg Q6HR PRN IV PUSH 07/04/17 00:45 07/04/17 00:41 Vital Signs / I&O Vital Signs Date Time Temp Pulse Resp B/P (MAP) Pulse Ox O2 Delivery O2 Flow Rate FiO2 07/04/17 09:19 97.3 82 17 100/75 (83) 95 07/04/17 07:26 76 07/04/17 04:09 98.6 85 18 114/74 (87) 93 07/04/17 00:00 98.3 100 18 143/69 (93) 97 07/03/17 23:00 98 07/03/17 21:14 18 07/03/17 20:15 98.1 113 20 145/120 (128) 96 07/03/17 15:30 98.0 97 18 153/98 (116) 93 07/03/17 11:30 97.7 93 18 108/84 (92) 96 I/O 07/03/17 07/03/17 07/03/17 07/04/17 07/04/17 07/04/17 07:00 15:00 23:00 07:00 15:00 23:00 # Voids 1 Physical Exam GENERAL: Well developed, well nourished. No acute distress. HEENT: Jugular venous pressure is normal. CHEST: Lungs clear to auscultation bilaterally. Unlabored respiratory effort. CARDIAC: Irregular rate and rhythm without S3, S4. II/ SUMA left upper sternal border. Normal S2. ABDOMEN: Soft, nontender, no hepatosplenomegaly. Bowel sounds present. EXTREMITIES: No clubbing, cyanosis, or edema. Laboratory Laboratory Tests Test 07/03/17 14:26 Blood Urea Nitrogen 14 MG/DL Creatinine 1.22 MG/DL Random Glucose 137 MG/DL Calcium Level 9.8 MG/DL Sodium Level 140 MEQ/L Potassium Level 4.2 MEQ/L Chloride Level 107 MEQ/L Carbon Dioxide Level 25.7 MEQ/L Anion Gap 7 MEQ/L Estimat Glomerular Filtration Rate 58 ML/MIN Assessment and Plan Problem List: (1) Paroxysmal atrial fibrillation ICD Codes: I48.0 - Paroxysmal atrial fibrillation Status: Chronic Plan: Remains in atrial fib. HR's under control. Patient s/p ablation and cardioversion 06/21/17. Will have Dr. Caicedo decide on any further therapy tomorrow. (2) CAD (coronary artery disease) ICD Codes: I25.10 - Atherosclerotic heart disease of sun'aq coronary artery without angina pectoris Status: Chronic Plan: Stable. No recent angina. Continue medical therapy. (3) Cardiomyopathy ICD Codes: I42.9 - Cardiomyopathy, unspecified Status: Chronic Plan: Overall compensated. No acute CHF. EF reportedly down to 30% on echo today with continued severe LVH. Rec continue beta qeuenie, DAVID-I. (4) Cardiac amyloidosis ICD Codes: E85.4 - Organ-limited amyloidosis; I43 - Cardiomyopathy in diseases classified elsewhere Status: Chronic Plan: Patient with wild type transthyretin cardiac amyloidosis. No specific recommendations. Continue beta queenie. (5) History of implantable cardioverter-defibrillator (ICD) placement ICD Codes: Z95.810 - Presence of automatic (implantable) cardiac defibrillator Status: Chronic (6) History of aortic valve replacement ICD Codes: Z95.2 - Presence of prosthetic heart valve Status: Chronic (7) Paroxysmal atrial flutter ICD Codes: I48.92 - Unspecified atrial flutter Status: Resolved Plan: Atrial flutter ablation 2012. Code Status full code Discussed Condition With patient Problem Qualifiers (1) CAD (coronary artery disease): Qualified Codes: I25.10 - Atherosclerotic heart disease of sun'aq coronary artery without angina pectoris (2) Cardiomyopathy: Qualified Codes: I42.9 - Cardiomyopathy, unspecified Navin Posey MD Jul 04, 2017 11:17
--- NOTE | 2017-07-04 11:56 | HHI.DS ---
Discharge Summary Admission Date Jul 02, 2017 at 23:22 Discharge Date: Jul 04, 2017 Admitting Diagnosis NEAR SYNCOPE, A FIB (1) History of aortic valve replacement ICD Code: Z95.2 - Presence of prosthetic heart valve Status: Chronic (2) S/P ablation of atrial flutter ICD Code: Z98.890 - Other specified postprocedural states; Z86.79 - Personal history of other diseases of the circulatory system (3) Atrial fibrillation ICD Code: I48.91 - Unspecified atrial fibrillation (4) Near syncope ICD Code: R55 - Syncope and collapse Status: Acute Procedures none Brief History - From Admission 71-year-old male with a past medical history significant for atrial fibrillation anticoagulated on Eliquis status post ablation in April and cardioversion one week ago, cardiac amyloidosis, regional pain syndrome, hypertension, hyperlipidemia and CHF (no recent echo) Zentz to the emergency department with new onset dizziness and episodes of diaphoresis. The patient's is bedside who states that patient did not lose consciousness however he became diaphoretic and pale during his dizzy episodes. The patient denies any palpitations. He denies any chest pain or shortness of breath. No fever/ chills. No nausea/vomiting/diarrhea. No lateralizing signs/symptoms. On arrival to the emergency department the patient was found to be in atrial fibrillation with rapid ventricular response. His pacemaker was interrogated in the ED which showed no runs of ventricular tachycardia or pacemaker firing. CBC/BMP: 07/03/17 0557 07/03/17 1426 Significant Findings Laboratory Tests Test 07/02/17 19:50 07/02/17 22:20 07/02/17 23:54 07/03/17 05:57 Red Blood Count 6.01 MIL/MM3 (4.50-5.90) Hemoglobin 17.1 GM/DL (13.0-17.0) Hematocrit 52.0 % (39.0-51.0) Neutrophils (%) (Auto) 71.3 % (16.0-70.0) Creatinine 1.49 MG/DL (0.60-1.30) 1.50 MG/DL (0.60-1.30) Random Glucose 133 MG/DL (74-106) 126 MG/DL (74-106) Calcium Level 10.4 MG/DL (8.5-10.1) 10.7 MG/DL (8.5-10.1) Estimat Glomerular Filtration Rate 46 ML/MIN (>89) 46 ML/MIN (>89) Troponin I 0.13 NG/ML (0.02-0.05) 0.12 NG/ML (0.02-0.05) 0.14 NG/ML (0.02-0.05) B-Type Natriuretic Peptide 268 PG/ML (0-100) Alkaline Phosphatase 148 U/L (45-117) Monocytes (%) (Auto) 8.3 % (0.0-8.0) Test 07/03/17 14:26 Random Glucose 137 MG/DL (74-106) Estimat Glomerular Filtration Rate 58 ML/MIN (>89) Imaging Last Impressions Carotid Artery Ultrasound 07/03/17 0000 Signed Impressions: Service Date/Time: Monday, July 03, 2017 08:29 - CONCLUSION: No evidence of significant stenosis on either side. However, the relatively low velocities identified in the right and left internal carotid artery may reflect a low output state of the heart. This would be consistent with the patient's clinical history of congestive heart failure.. Ashanti Campos MD Chest X-Ray 07/02/17 193 Signed Impressions: Service Date/Time: Sunday, July 02, 2017 20:18 - CONCLUSION: Trace left base atelectasis and borderline, stable compensated cardiomegaly. Emmett Bacon MD PE at Discharge GENERAL: This is a well-nourished, well-developed patient, in no apparent distress. SKIN: Warm and dry. Tanned. HEENT: Normocephalic. Pupils equal round and reactive. Nose without bleeding. Airway patent. NECK: Trachea midline. No JVD. Supple. CARDIOVASCULAR: Irregular heart rate without murmurs, gallops, or rubs. RESPIRATORY: Clear to auscultation. Breath sounds equal bilaterally. No wheezes , rales, or rhonchi. GASTROINTESTINAL: Abdomen soft, non-tender, nondistended. Bowel Sounds normoactive x4. MUSCULOSKELETAL: Extremities without clubbing, cyanosis, or edema. NEUROLOGICAL: Awake and alert. Oriented to time, place, person. No focal neuro deficit. Moves all extremities. Normal speech. Pt update on day of discharge Patien tin the chair. Says he feels much better. He is able to eat without any problems. Passed swallow evaluation. No nausea or vomiting no diarrhea or constipation. He was able to ambulate without any problems no shortness of breath or chest pain. No fever or chills. Hospital Course Patient is a 71-year-old male with a past medical history significant for atrial fibrillation anticoagulated on Eliquis status post ablation in April and cardioversion one week ago, cardiac amyloidosis, regional pain syndrome, hypertension, hyperlipidemia and CHF (no recent echo) Zentz to the emergency department with new onset dizziness and episodes of diaphoresis. Atrial fibrillation with rapid ventricular response EKG significant for A. fib with RVR reviewed Continue Amiodarone, Eliquis Patient is being followed by Dr. Caicedo. Cardiology consulted, appreciate assistance. Cleared by cardio for Dc . Had echo, reviewed Elevated troponin Patient's initial troponin 0.13, repeat 0.12 -->0.14 Denies chest pain Likely secondary to recent cardioversion or demand Hypertension/hyperlipidemia/cardiac amyloidosis Continue home medications History of CHF Echo EF 30%, severe LVH. Continue arbs and bb. Cleared by cardio for DC No clinical signs of failure at this time. BNP 268 DC IV fluids Regional pain syndrome Continue home oxycodone Presyncope Likely secondary to atrial fibrillation Carotid ultrasound showed no evidence of significant stenosis on either side. However, the relatively low velocities identified in the right and left internal carotid artery may reflect a low output state of the heart. This would be consistent with patient's clinical history of congestive heart failure. Echo pending CKD Creatinine 1.5, baseline Monitor renal function DVT prop Eliquis Discharge Planning Cleared by cardiology. Seen by GI recommends follow-up as outpatient with Dr. Singleton his GI Dr. Discharge home in stable condition to follow up as OP with PCP and consultants. Pt Condition on Discharge: Stable Discharge Disposition: Discharge Home Discharge Time: > 30 minutes Discharge Instructions DIET: Follow Instructions for: Heart Healthy Diet Activities you can perform: Regular-No Restrictions Follow up Referrals: Cardiology - 1 Week with Carine Caicedo MD Gastroenterology - 2 Weeks with Raad Singleton MD PCP Follow-up Continued Medications: Amiodarone (Amiodarone) 200 Mg Tab 200 MG PO DAILY for Regulate Heart Beat, #30 TAB 0 Refills Apixaban (Eliquis) 5 Mg Tab 5 MG PO BID for Blood Clot Prevention, #60 TAB 0 Refills Bethanechol (Bethanechol) 25 Mg Tab 12.5 MG PO QID for Urinary Symptom Managemen, TAB 0 Refills Doxycycline (Monohydrate) (Doxycycline) 100 Mg Cap 100 MG PO BID Duloxetine DR (Cymbalta DR) 30 Mg Capdr 30 MG PO DAILY, #30 CAP 0 Refills Green Tea [place] Extract (Green Tea) 1 Each Capsule 2 CAP PO DAILY for Nutritional Supplement Lisinopril (Lisinopril) 5 Mg Tab 5 MG PO HS for Blood Pressure Management, #30 TAB 0 Refills Egnar-3 Fatty Acids (Fish Oil 1200 mg) 360 Mg-1,200 Mg Cap 1000 MG PO DAILY for Nutritional Supplement Oxycodone (Oxycodone) 10 Mg Tab 10 MG PO Q8HR for Pain Management, TAB 0 Refills Pantoprazole (Protonix) 40 Mg Tab 40 MG PO DAILY for Reflux, #30 TAB 0 Refills Rosuvastatin (Crestor) 10 Mg Tab 10 MG PO HS for Cholesterol Management, #30 TAB 0 Refills Karin Miranda MD Jul 04, 2017 11:56
--- NOTE | 2017-07-04 13:26 | HHI.DCPOC ---
Discharge Care Plan Diagnosis: (1) Paroxysmal atrial flutter (2) S/P ablation of atrial fibrillation (3) Cardiac amyloidosis (4) Cardiomyopathy Your Health Problems Are: Bleeding Tendency Difficulty to Swallow Shortness of Breath Goals to Promote Your Health * To prevent worsening of your condition and complications * To maintain your health at the optimal level Directions to Meet Your Goals Take your medications as prescribed Follow your dietary instruction Follow activity as directed Keep your appointments as scheduled Take your immunizations and boosters as scheduled If your symptoms worsen call your PCP, if no PCP go to Urgent Care Center or Emergency Room Smoking is Dangerous to Your Health. Avoid second hand smoke Call the 24-hour hour crisis hotline for domestic abuse at Preeti Pinedo Jul 04, 2017 1:26 pm
--- NOTE | 2017-07-04 16:30 | MB ---
cc: Rodrigo Graves MD,Preeti Galaviz MD DATE OF CONSULT: REASON FOR CONSULTATION: I was asked to see this patient in consultation by Dr. Austin for evaluation of dysphagia. HISTORY OF PRESENT ILLNESS: This patient is a pleasant 71-year-old white male who is followed by Dr. Singleton in the office. 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 He was dilated with an 18 mm Savary dilator. This 02/2017 the patient had a followup endoscopy. There is no Schatzki's ring. Endoscopically it looked like he had Gonzalez's but the biopsies did not show Gonzalez's. From the report I have in the office he did not have esophageal dilatation at that time as there was no esophageal stricture. From reviewing his chart he has a problem with dysphagia on and off. He also has gastroparesis for which he takes bethanechol. Gastroparesis is worsened by his narcotic intake. Apparently, he has been having problem swallowing both liquids and solids in the throat area. Sometimes does not want to go down and this sometimes causes coughing. A bedside swallow study was done (not a modified barium swallow) and apparently he did well. He is a candidate to have a regular diet with thin liquids. The patient also takes doxycycline for his cardiac amyloidosis, but he has been taking this for some time. At this time, he did have some vomiting yesterday and cardiology also wanted to see him because he has had some forms of tachycardia and atrial fibrillation and they thought this coughing may exacerbate his situation. Patient was actually admitted with atrial fibrillation with a rapid ventricular response which apparently is better at this time. The patient currently denies any swallowing problems. He had a breakfast this morning without problems. There has been no odynophagia, nausea, vomiting. He does have heartburn but well controlled. No chest pain. No palpitations today. No melena, diarrhea or constipation. He is up to date on his colonoscopies. He denies any Raynaud's phenomena or caustic ingestions. PAST MEDICAL HISTORY: Significant for a Schatzki's ring, which was dilated as mentioned above in 2015. In 02/2017 no recurrent ring was noted. He does have short segment Gonzalez's but biopsy did not show Gonzalez's at this time. He also has history of adenomatous colon polyps. He has had cardiac amyloidosis, atrial fibrillation thus he takes Eliquis, hypertension, dyslipidemia, CHF, coronary artery disease. Recent syncope (he was admitted with lightheadedness and dizziness). He had dyslipidemia, ventricular tachycardia and he has AICD, Gonzalez's esophagus. PAST SURGICAL HISTORY: Includes upper endoscopies and colonoscopies, last esophageal dilatation was done in 2015. He has had 2-vessel bypass as well as aortic valve replacement. He has had ablation in regard to atrial fibrillation. He has had cardioversion, implantation of AICD, recent laminectomy, tonsillectomy, appendectomy, spinal decompression, spinal stimulator. ALLERGIES: BACITRACIN, NEOMYCIN, POLYMYXIN. FAMILY HISTORY: Not significant for any cancer or colon polyps. SOCIAL HISTORY: He does not currently smoke tobacco or drink alcohol. MEDICATIONS: As outpatient: Amiodarone, Oxycontin, Crestor, Eliquis, Cymbalta, doxycycline, bethanechol 12.5 mg, Protonix every day, green tea and fish oil. Medications here as an inpatient include: Zofran, Prinivil, Lipitor, Vibramycin 100 mg twice a day, Coreg, amiodarone, Eliquis, Urecholine/bethanechol, Cymbalta, Protonix and Roxicodone. REVIEW OF SYSTEMS: According to daughter, he has lost almost 15 pounds of weight, but she could not tell what time period. There is no fever or chills. CARDIOPULMONARY: Right now he has no chest pain, palpitation, cough, wheezing, shortness of breath. He presented with atrial fibrillation with rapid ventricular response with lightheadedness and near syncope. This is better now. GASTROINTESTINAL: Please see above, otherwise unremarkable 12-point review of systems. PHYSICAL EXAMINATION: VITAL SIGNS: Blood pressure is 100/75, pulse of 82, respiratory rate of 17, temperature 97.3. GENERAL: He is an elderly, frail appearing white male resting comfortably at this time. Appears to be in no acute GI distress. HEENT: Pupils are equal and reactive to light. No obvious scleral icterus. Oropharyngeal cavity had dental caries. No tongue deviation or candidal lesion. Hearing was diminished but when I spoke louder he could understand me. NECK: Supple. No thyromegaly or lymphadenopathy. LUNGS: Clear to auscultation and percussion. No wheezing. HEART: Irregular rhythm, small murmur is heard. ABDOMEN: Soft, nondistended, nontender. No organomegaly or masses. No ascites or hernias. EXTREMITIES: No cyanosis, clubbing or edema. NEUROLOGIC: Cranial nerves 2-12 are grossly intact. GAIT/RECTAL: I did not assess his gait nor do a rectal exam on him. SKIN: Warm and dry. LABORATORY DATA: Database: His potassium is 4.2 today, BUN of 14, creatinine 1.22 (yesterday's creatinine 1.50). Troponins have been elevated at 0.12 and 0.14. His total bilirubin is 0.7, SGOT 13, SGPT 46, alkaline phosphatase 148. His prothrombin time 11.6, INR 1.1, PTT of 28.2. His hemoglobin yesterday was 16.7, hematocrit 50.1, white blood cell count 1700, platelet count 203,000. IMPRESSION: 1. Dysphagia - I discussed the situation with the patient and the patient's daughter and the nurse. The patient did do well on a bedside swallow study. Speech pathologist commented on the fact that the patient should continue with a regular diet with thin liquids with followup visits to ensure diet tolerance. They will make this arrangement. They are aware in 02/2017 Dr. Singleton did look in the esophagus and although Gonzalez's was noted there biopsies did not show this. The note did not mention any dilatation. The last dilatation was 2015 and this showed a very subtle Schatzki's ring, which usually should not cause problems in the throat area. We talked about dysmotility that he does have amyloid and whether this is affecting the esophageal mucosa is unclear. We talked about postnasal drip. Chance of malignancy are small. They are aware that upper endoscope does not look at the throat that well and that is where his problem swallowing is. Either way, he is able to tolerate diet today. He is doing better. 2. Gonzalez's esophagus. Endoscopically it looked like Gonzalez's on last upper endoscopy but biopsy did not show this. They understand Gonzalez's is a premalignant changes . His heartburn is doing well. 3. Gastroparesis - it is manifested with early satiety. The daughter mentions vomiting yesterday and this could be exacerbation of situation. Patient is tolerating diet today without problem. 4. History of adenomatous colon polyps. 5. Atrial fibrillation with rapid ventricular response with lightheadedness and near syncope, better now. 6. History of cardiac amyloidosis. 7. Elevated alkaline phosphatase is minimal. This can be followed up as an outpatient in the office if needed. RECOMMENDATIONS: 1. Because of the vomiting he had I would recommend increase bethanechol to 25 mg rather than 12.5 mg. 2. Continue PPI. 3. I educated the patient and the nurse about the best way of eating. Sometimes drinking a half a glass of lukewarm water before eating anything can help swallowing. In addition avoid extreme hot and cold foods such as ice tea and ice cream and hot coffee, etc. This may help swallowing also. 4. Ultimately, the patient may need a repeat esophageal dilatation, but I think this is a low yield procedure at present. In the past, he was not quite sure if it helped his dysphagia anyway and in 02/2017 the esophagus did not show any obvious strictures. If we do proceed with these procedures he would need to be off Eliquis and he may need a cardiac clearance also, but again this could be done as an outpatient. 5. Further recommendation will depend on how he does. Rodrigo Graves MD SPP/TL/rr , 12:57 PM , 02:49 PM [email or web address]
[2017-07-04] MEDS ORDERED: BETHANECHOL CHL 25 MG TAB PO SCH (17:00)
== END 2017-07-04 16:41 | disposition home or self-care (01) ==
LOC: NEPE 19:18 → NEDA 23:22 → NEPHCDU 07-03 04:13
PROVIDERS: ADMIT Hospitalist; ATTEND Hospitalist
DX: R55 Syncope and collapse (principal); I48.0 Paroxysmal atrial fibrillation; I48.92 Unspecified atrial flutter; I50.9 Heart failure, unspecified; I25.10 Atherosclerotic heart disease of native coronary artery without angina pectoris; E85.4 Organ-limited amyloidosis; I43 Cardiomyopathy in diseases classified elsewhere; R61 Generalized hyperhidrosis; R53.1 Weakness; R42 Dizziness and giddiness; R06.02 Shortness of breath; I13.0 Hypertensive heart and chronic kidney disease with heart failure and stage 1 through stage 4 chronic kidney disease, or unspecified chronic kidney disease; R11.0 Nausea; E78.00 Pure hypercholesterolemia, unspecified; F41.9 Anxiety disorder, unspecified; K21.9 Gastro-esophageal reflux disease without esophagitis; R00.2 Palpitations; E78.5 Hyperlipidemia, unspecified; Z95.810 Presence of automatic (implantable) cardiac defibrillator; Z79.01 Long term (current) use of anticoagulants; Z95.1 Presence of aortocoronary bypass graft; G90.50 Complex regional pain syndrome I, unspecified
CPT/HCPCS: 71045; 80048; 80053; 82550; 83735; 83880; 84484; 85025; 85610; 85730; 92610; 93005; 93306; 93880; 95819; 96361; 96374; 99285; G0378; G8996; G8997; G8998; J2405; J7030

== ENCOUNTER 2017-08-11 14:44 | Day surgery (SDC) | payer MEDICARE, BC ==
[~2017-08-11] VITALS: Ht 177.8 cm; Wt 82.6 kg
[~2017-08-11 14:44] MED LIST changes: +AMIO200T PO; +DEXAMETHASONE SOD PHOS 4 MG/ML VIAL IV ONE; -FURO1TAB62 PO; +GLYCOPYRROLATE 1 MG/5 ML SYRINGE IV PUSH ONE; +LIDOCAINE HCL 1% PF 5 ML SYRINGE OTHER ONE; +NEOSTIGMINE 5 MG/5 ML SYRINGE IV PUSH ONE; +ONDANSETRON HCL 4 MG/2 ML VIAL IV ONE; +OXYC-395 PO; +PHENYLEPH/NS 1000 MCG/10 ML SYR IV ONE; +PHENYLEPHRINE HCL 10 MG/ML VIAL IV ONE; +PROPOFOL 200 MG/20 ML AMP IV ONE; +ROCURONIUM INJ 50 MG/5 ML SYRINGE IV PUSH ONE; +SODIUM CHLORIDE 0.9% 20 ML VIAL IV ONE; -VITATAB43 PO; +ePHEDrine/NS 25 MG/5 ML SYRINGE IV ONE
[2017-08-11] MEDS ORDERED: FURO20TA PO (15:08)
[2017-08-11] MEDS ORDERED: SODIUM CHLORID 0.9% 500 ML IV PRN (15:30)
[2017-08-11] MEDS ORDERED: METOPROLOL TARTRATE 25 MG TAB PO PRN (15:30)
[2017-08-11] MEDS ORDERED: NS 1000 ML IV SCH (15:30)
[2017-08-11] MEDS ORDERED: INSULIN HUMAN REGULAR 1,000 UNITS/10 ML VIAL SQ PRN (15:30)
[2017-08-11] MEDS ORDERED: POVIDONE IODINE 5% (ANTISEPSIS KIT) 4 APPLICATIONS EACH NARE PRN (15:30)
[2017-08-11] MEDS ORDERED: LACTATED RINGER'S 1000 ML IV PRN (15:30)
[2017-08-11] MEDS ORDERED: ceFAZolin 2 GM PREMIX 50 ML IV SCH (15:30)
[2017-08-11] MEDS ORDERED: VANCOMYCIN 1 GM/200 ML PREMIX IV SCH (15:30)
[2017-08-11] MEDS ORDERED: CHLORHEXIDINE GLUCONATE 2 % 1 PACK (2 CLOTHS) TOPICAL PRN (15:30)
[2017-08-11 15:32] VITALS: BP 126/92; PULSE 93; RESP 18; O2SAT 97
[2017-08-11 17:12] LABS: HEMOGLOBIN 16.8 GM/DL (13.0-17.0); MEAN CELL VOLUME 85.5 FL (80.0-100.0); MEAN CORPUSCULAR HEMOGLOBIN 28.3 PG (27.0-34.0); MEAN PLATELET VOLUME 9.5 FL (7.0-11.0); PLATELET COUNT 206 TH/MM3 (150-450); RED BLOOD COUNT 5.96 MIL/MM3 (4.50-5.90); RED CELL DISTRIBUTION WIDTH 14.8 % (11.6-17.2); WHITE BLOOD COUNT 6.5 TH/MM3 (4.0-11.0)
[2017-08-11 17:21] LABS: INTERNATIONAL NORMALIZED RATIO 1.1 RATIO; PROTHROMBIN TIME - PATIENT 11.4 SEC (9.8-11.6)
[2017-08-11 17:26] LABS: BICARBONATE 29.3 MEQ/L (21.0-32.0); CALCIUM 10.5 MG/DL (8.5-10.1); CREATININE 1.4 MG/DL (0.60-1.30)
[2017-08-11] MEDS ORDERED: PROTAMINE SULFATE 50 MG/5 ML VIAL ONE (17:45)
[2017-08-11] MEDS ORDERED: HEPARIN SODIUM - IV 10,000 UNITS/10 ML VIAL ONE (17:45)
[2017-08-11] MEDS ORDERED: HEPARIN-D5W 25,000 U/250 ML 0 ML ONE (17:45)
[2017-08-11] MEDS ORDERED: HEPARIN-NS/PF FLUSH BAG 1,000 ML IV FLUSH ONE (18:03)
[2017-08-11] MEDS ORDERED: MIDAZOLAM HCL 2 MG/2 ML VIAL ONE (18:42)
--- NOTE | 2017-08-11 18:55 | CATHPROC ---
Patient Name: DWIGHT TORIBIO Study #: [id number] Initial MD: Carine Harvey Date of : 1945 Study Date: 08/11/2017 Cardiac Catheterization Report 08/11/2017 6:55:33 PM Financial #: [id number] 1 of 7 Patient Name: DWIGHT TORIBIO Study #: [id number] Initial MD: Carine Harvey Date of : 1945 Study Date: 08/11/2017 Entire Case Report Patient Information Patient Name DWIGHT TORIBIO Date of 1945 Age 72 years Financial # [id number] Gender M AlternateID Lab Number 2 Room Number DC04 Height (in) 70.0 Height (cm) 177.8 BSA 2.00 Weight (lbs) 179.7 Weight (kg) 81.7 Patient Address/Phone Number Home Address [facility] Home Phone Number [facility] [phone] Study Information Study Number Admission Scheduled Start Study Start [id number] Aug 11 2017 2:44PM 08/11/2017 Aug 11 2017 5:33PM [place] [facility] Cardiac Pacer/ICD Admit Source Facility Department Other [facility] - Administrative Support Specialist Physician and Clinical Staff Initial Carine Jasso Hr Systems Analyst Deven Bhandari,RT(R) Other Anesthesia, FUELER Recorder Neda Booth,YONAS Scrub Zoya Vasques,RT(R) TECH2 Procedures Performed Procedure Location (Site) Ablation Procedure RF Ablation AV NODE 08/11/2017 6:55:33 PM Financial #: [id number] 2 of 7 Patient Name: DWIGHT TORIBIO Study #: [id number] Initial MD: Carine Harvey Date of : 1945 Study Date: 08/11/2017 Equipment Time Coating Mixer Supervisor Description Size Mfg Part Number Used/Scraped BIOSENSE [place] CATHETER, CELSIUS DS, 8MM, F [id number] 18:18 FR 7 Used INC. TYPE QUAD *[id number] 17:58 Dualog PACK, CCL CUSTOM * Used *[id number] 17:58 MEDLINE PACER MENDOZA, LIMB * 2530 *[id number] Used [id number] 17:58 ZELAYA MEDICAL BLANKET,WARM AIR CCL * Used *[id number] 17:59 [employer] MED[employer] CATHETER, JSN, QUAD FR 5 Used *[id number] 17:59 [employer] MEDICAL CATHETER, JSN, QUAD FR 5 Used *[id number] 17:58 [employer] MEDICAL ELECTRODE KIT, MARCIAL X SURFACE * Used *[id number] 17:59 [employer] SHEATH, EPS, FR5 FAST CATH FR 5 Used *[id number] 17:59 [employer] MED[employer] SHEATH, EPS, FR6 FAST CATH FR 6 Used *[id number] 538130 17:59 [employer] MED[employer] SHEATH, EPS, FR8 FAST CATH FR 8 Used *[id number] [facility] PAD, ELECTROSURGICAL 17:58 * [id number] *[id number] Used SURGICAL GROUNDING (BLUE) Insurance Information Insurance Payor Medicare Third Green Party Third Green Party Number MEDICARE A B MCRAB History: Allergies Allergy Reaction neomycin Rash bacitracin Rash polymyxin B Rash History: Risk Factors Hypertension Dyslipidemia Previous Heart Failure Yes Yes Yes Labs Hgb (g/dl) Hct (%) 11.60-17.00 35.00-51.00 16.0 51 Creatinine (mg/dl) 0.50-1.30 1.4 08/11/2017 6:55:33 PM Financial #: [id number] 3 of 7 Patient Name: DWIGHT TORIBIO Study #: [id number] Initial MD: Carine Harvey Date of : 1945 Study Date: 8 K (meq/l) 3.50-5.10 3.8 INR (PTT:PT) 0.90-1.10 1.1 Medication Medication Total Dose (Bolus/Oral) Medication Total Dosage/Unit 1% XYLOCAINE 20 mL Medications (Bolus/Oral) Medication Time Given Dosage/Unit Administered By Reason 1% XYLOCAINE 08/11/2017 6:17:04 PM 20 mL Carine Harvey 20 mL 1% XYLOCAINE given in lab by Carine Harvey in Right Groin via Subcutaneous. Medication (Drip) Medication Time Given Dosage/Unit Concentration/Unit Diluent (ml) Solution ISUPREL 08/11/2017 6:46:15 PM 5 mcg/min 1 mg 250 NaCl .9 5 mcg/min ISUPREL given in lab by Carine Harvey via Peripheral IV. Pump/Drip Flow = 75 ml/hr using Na Cl .9 with a concentration of 1 mg in 250 ml. 08/11/2017 6:55:33 PM Financial #: [id number] 4 of 7 Patient Name: DWIGHT TORIBIO Study #: [id number] Initial MD: Carine Harvey Date of : 1945 Study Date: 08/11/2017 Initial Case Assessment Cardiovascular HR NIBP Chest Pain 95 143/99 0 Edema Present Skin color Skin None Normal Warm Dry Circulatory - Right Pulses Dorsalis Pedis 1 Scale (0,1,2,3,4,d) Circulatory - Left Pulses Dorsalis Pedis 1 Scale (0,1,2,3,4,d) Neurological State Oriented to time-place- Alert Moves all extremities person Respiration - General Respiration Rate SpO2 (%) (B/min) 18 95 Chronological Log Time Study Chronological Log 17:45:45 Patient arrived via Bed. 17:45:46 Patient Name, D.O.B, / Armband Verified By R.N. 17:45:47 Consent signed by the physician and the patient and verified by the Administrative Support Specialist staff. 17:45:47 Pre-op and post- op instructions given; patient acknowledges understanding of instructions. 17:45:48 Verbal Stimulation=2 Physical Stimulation=2 Airway=2 Respiration=2 TOTAL=8. (0=absent, 1=li mited, 2=present) Anesthesia at bedside. Assumes care of patient. Clarita 17:45:55 SEE RECORDS FOR ALL MEDS AND VIITALS DURING PROCEDURE 17:46:01 Patient has been NPO for More than 6Hrs. 17:46:02 Skin Breakdown- none per pt 17:46:10 Patient Warmer Placed on the Table. 17:46:11 Disposable Defibrillator Pads Placed On Patient. 17:46:17 Keyla Prominences Protected 17:46:18 A # 20 IV was noted in the Antecubital (left). Grade = 0 0.9ns kvo 08/11/2017 6:55:33 PM Financial #: [id number] 5 of 7 Patient Name: DWIGHT TORIBIO Study #: [id number] Initial MD: Carine Harvey Date of : 1945 Study Date: 08/11/2017 17:46:28 A # 20 IV was noted in the Antecubital (right). Grade = 0 0.9ns kvo 17:46:38 History and physical on the chart or being dictated. Assessment: Initial Case, HR=95 BPM, ZGWA=217/99 mmhg, Chest Pain=0, Edema=None, Color=Normal, Skin = Warm, Dry Right Pulses: Bar Ped=1 17:56:18 Left Pulses: Bar Ped=1 Neurological: State=Alert, Ox3, EID Respiration: Resp=18 B/min, SpO2=95 % 17:57:40 Table restraints applied according to hospital policy 17:57:41 Bilateral groins prepped with 2% chlorhexidine, and draped after a 3 minute waiting time. 18:00:29 device set to vvi40 tachy therapy deactivated by warren esqueda per dr harvey 18:08:44 MD paged 18:09:51 MD responded 18:10:17 Reference ECG taken Time Out. Correct patient, procedure, procedure equipment, site and side verified with physicia n present. Time 18:16:03 concurred by MD, individual staff and FUELER. Time Out #2 - Consents verified, patient in correct position, all results are labled and displa yed, safety precautions 18:16:05 taken, antibiotics administered. Time out concurred by MD, individual staff and FUELER in procedu re 18:16:06 Case Start 18:17:04 20 mL 1% XYLOCAINE given in lab by Carine Harvey in Right Groin via Subcutaneous. 18:17:05 Vascular access was obtained in the Fem Vein (right). 18:17:08 Vascular access was obtained in the Fem Vein (right). 18:17:09 Vascular access was obtained in the Fem Vein (right). 18:17:11 A SHEATH, EPS, FR5 FAST CATH FR 5 was advanced into the Fem Vein (right) using the Modified Seldinger technique. 18:17:18 A SHEATH, EPS, FR6 FAST CATH FR 6 was advanced into the Fem Vein (right) using the Modified Seldinger technique. 18:17:20 A SHEATH, EPS, FR8 FAST CATH FR 8 was advanced into the Fem Vein (right) using the Modified Seldinger technique. A CATHETER, JSN, QUAD FR 5 was advanced vis Fem Vein (right) and placed in the CS. Placement wa s visually 18:19:02 confirmed under fluoroscopy. A CATHETER, JSN, QUAD FR 5 was advanced vis Fem Vein (right) and placed in the HIS. Placement w as visually 18:19:11 confirmed under fluoroscopy. 18:20:55 RF Ablation of the AV NODE with a CATHETER, CELSIUS DS, 8MM, F TYPE QUAD FR 7. 18:21:44 NODE ABLATION IN PROGRESS 18:42:39 NODE ABLATED 5 mcg/min ISUPREL given in lab by Carine Harvey via Peripheral IV. Pump/Drip Flow = 75 ml/hr us ing NaCl .9 with a 18:46:15 concentration of 1 mg in 250 ml. 18:54:00 D/C ISUPREL 18:54:36 SWITCH ROOM AROUND FOR BI-V ICD UPGRADE 18:55:16 Ablation procedure performed: AVN. 18:55:25 EP Procedure was performed. 08/11/2017 6:55:33 PM Financial #: [id number] 6 of 7 Patient Name: DWIGHT TORIBIO Study #: [id number] Initial MD: Carine Harvey Date of : 1945 Study Date: 08/11/2017 End Study - Contrast Media Used In Study Contrast Total Opened (mL) Total Used (mL) Total Wasted (mL) Unspecified 0 0 0 End Study - Maximum Contrast Load Max Contrast Load (mL) 291.7 End Study - Radiation Exposure Fluoro Time (minutes) 5.4 End Study - Patient Disposition Complications Transferred To Interventional Outcome No Administrative Support Specialist Holding successful 08/11/2017 6:55:33 PM Financial #: [id number] 7 of 7
[2017-08-11] MEDS ORDERED: VANCOMYCIN 500 MG VIAL ONE (19:09)
[2017-08-11] MEDS ORDERED: LIDOCAINE HCL 2% 20 ML VIAL ONE (19:09)
[2017-08-11] MEDS ORDERED: DO NOT ADM ANY ANTICOAGULANT DRUGS PRN (19:30)
[2017-08-11] MEDS ORDERED: FUROSEMIDE 40 MG/4 ML VIAL ONE (20:06)
[2017-08-11] MEDS ORDERED: SODIUM CHLOR 0.9% 250 ML INJ 250 ML IV PRN (20:30)
[2017-08-11] MEDS ORDERED: SODIUM CHLORIDE 0.9% FLUSH 10 ML FLUSH IV FLUSH PRN (20:30)
[2017-08-11] MEDS ORDERED: ONDANSETRON HCL 4 MG/2 ML VIAL IV PUSH PRN (20:30)
[2017-08-11] MEDS ORDERED: BACITRACIN OINT 0.9 GM PKT TOP ONE (20:30)
[2017-08-11] MEDS ORDERED: ATROPINE SULFATE 1 MG/ML VIAL IV PUSH PRN (20:30)
[2017-08-11] MEDS ORDERED: LIDOCAINE HCL 1% 50 ML VIAL INFIL PRN (20:30)
[2017-08-11] MEDS ORDERED: LORazepam 2 MG/ML VIAL IV PUSH PRN (20:30)
[2017-08-11] MEDS ORDERED: oxyCODONE/ACETAMINOPHEN 5 MG/325 MG TAB PO PRN ×2 (20:30)
--- NOTE | 2017-08-11 20:37 | CATHPROC ---
Patient Name: DWIGHT TORIBIO Study #: [id number] Initial MD: Carine Caicedo Date of : 1945 Study Date: 08/11/2017 Cardiac Catheterization Report 08/11/2017 8:37:34 PM Financial #: [id number] 1 of 7 Patient Name: DWIGHT TORIBIO Study #: [id number] Initial MD: Carine Caicedo Date of : 1945 Study Date: 08/11/2017 Entire Case Report Patient Information Patient Name DWIGHT TORIBIO Date of 1945 Age 72 years Financial # [id number] Gender M AlternateID Lab Number 2 Room Number DC04 Height (in) 70.0 Height (cm) 177.8 BSA 2.00 Weight (lbs) 179.7 Weight (kg) 81.7 Patient Address/Phone Number Home Address [facility] Home Phone Number [facility] [phone] Study Information Study Number Admission Scheduled Start Study Start [id number] Aug 11 2017 2:44PM 08/11/2017 Aug 11 2017 6:56PM [place] [facility] Electrophysiology Study Admit Source Facility Department Other [facility] Helper Physician and Clinical Staff Initial Carine Jasso Materials Clerk Deven Bhandari,RT(R) Other Anesthesia, SPOUT LINER Other Beth Mccullough,YONAS Recorder Neda Booth RN Scrub Zoya Vasques,RT(R) TECH2 Procedures Performed Procedure Location (Site) Vessel Name Lead Insertion Venogram Coronary Sinus Other Wire insertion Coronary Sinus Other 08/11/2017 8:37:34 PM Financial #: [id number] 2 of 7 Patient Name: DWIGHT TORIBIO Study #: [id number] Initial MD: Carine Caicedo Date of : 1945 Study Date: 08/11/2017 Equipment Time Project Consultant Description Size Mfg Part Number Used/Scraped [id number] 19:22 WHITE [employer] C[employer] WIRE, ASAHI PROWATER 180CM 180CM Used *[id number] DERMABOND, ADHESIVE SKIN [id number] 18:58 CORDIS/PACER * Used GLUE MINI *[id number] 18:58 MEDLINE INDUSTRIES SUTURE, STRIP PLUS 1/2" * Used *[id number] 18:58 MEDLINE PACER MENDOZA, LIMB * 2530 *[id number] Used [id number] 18:58 MEDLINE PACER PACK, PACER CUSTOM * Used *[id number] 19:04 Truly PACER SAFE SHEATH, FR9, 13CM FR 9 [id number] Used 19:20 Needle Sponge Count 1 111 Used 19:20 Needle Sponge Count 30 1 Used 19:19 Needle Sponge Count 4 4 Used 19:45 NYCOMED OMNIPAQUE, 300 MG, 50ML 50ML [id number] Used SUTURE, 0 ETHIBOND [CT1] (CX21D), 8pk SUTURE, 2-0 VICRYL [CT1] (VIE421Y) SUTURE, 2-0 VICRYL [CT1] (CFI410L) [id number] 18:58 [place] [employer] BLANKET,WARM AIR CCL * Used *[id number] DEFIBRILLATOR, QUADRA 20:04 [employer] MEDICAL VVVED-DDDRV [id number] Used ASSURA [id number] 19:21 [employer] MEDICAL LIVEWIRE, QUAD, MED SWEEP FR 6 Used *[id number] [facility] PAD, ELECTROSURGICAL 18:58 * [id number] *[id number] Used SURGICAL GROUNDING ORANGE LEAD, ATTAIN PERFORMA 19:49 VITATRON MEDTRONIC 88CM 4398-88CM Used STRAIGHT, 88CM [id number] 19:20 VITATRON MEDTRONIC PLASMABLADE, PEAD 3.0S * Used *[id number] 4188-2303 18:58 ZOLL [employer]ICAL NISHA. / * Used *15442 Equipment Model, Serial, Lot Number and Expiration Data Description Model Number Serial Number Lot Number Expiration Date DEFIBRILLATOR, QUADRA ASSURA [id number] 06-16-2018 LEAD, ATTAIN PERFORMA 4398-88 [id number] 06-05-2019 STRAIGHT, 88CM LIVEWIRE, QUAD, MED SWEEP [id number] 08-17-2019 Insurance Information Insurance Payor Medicare Third Constitution Party Third Constitution Party Number MEDICARE A B MCRAB 08/11/2017 8:37:34 PM Financial #: [id number] 3 of 7 Patient Name: DWIGHT TORIBIO Study #: [id number] Initial MD: Carine Caicedo Date of : 1945 Study Date: 08/12/19 18 Medication Medication Total Dose (Bolus/Oral) Medication Total Dosage/Unit 2% XYLOCAINE 50 mL LASIX 40 mg Medications (Bolus/Oral) Medication Time Given Dosage/Unit Administered By Reason 2% XYLOCAINE 08/11/2017 7:33:01 PM 50 mL Carine Caicedo 50 mL 2% XYLOCAINE given in lab by Carine Caicedo in Left upper chest via Subcutaneous. LASIX 08/11/2017 8:15:00 PM 40 mg Anesthesia, SPOUT LINER As per physicians verba l order 40 mg LASIX given in lab by Anesthesia, SPOUT LINER via Peripheral IV. Ordered by Carine Caicedo. Reason: As per physicians verbal order. Medication (Drip) Medication Time Given Dosage/Unit Concentration/Unit Diluent (ml) Solution ANCEF 08/11/2017 5:57:00 PM 2 g 2 g ANCEF given in lab by Anesthesia, SPOUT LINER in Right Antecubital via Peripheral IV. Ordered by Carine Caicedo. VANCOMYCIN DRIP 08/11/2017 5:57:57 PM 1 g 1 g VANCOMYCIN DRIP given in lab by Anesthesia, SPOUT LINER in Right Antecubital via Peripheral IV. Ordered by Carine Caicedo. 08/11/2017 8:37:34 PM Financial #: [id number] 4 of 7 Patient Name: DWIGHT TORIBIO Study #: [id number] Initial MD: Carine Caicedo Date of : 1945 Study Date: 08/11/2017 Final Case Assessment Cardiovascular HR Rhythm NIBP Chest Pain 80 p 120/82 0 Edema Present Skin color Skin None Normal Warm Dry Circulatory - Right Pulses Dorsalis Pedis 1 Scale (0,1,2,3,4,d) Circulatory - Left Pulses Dorsalis Pedis 2 Scale (0,1,2,3,4,d) Circulatory - Lower Extremities Color Lower Right Normal Neurological State Drowsy Moves all extremities Respiration - General Respiration Rate SpO2 (%) O2 (lpm) (B/min) 16 99 4 Chronological Log Time Study Chronological Log 17:57:00 2 g ANCEF given in lab by Anesthesia, SPOUT LINER in Right Antecubital via Peripheral IV. Ordered by Carine Caicedo. 1 g VANCOMYCIN DRIP given in lab by Anesthesia, SPOUT LINER in Right Antecubital via Peripheral IV. Or dered by Marifer, 17:57:57 Carine. 18:55:50 Anesthesia remains at bedside. Assuming care of patient. 18:55:54 Initial procedure has been completed. Beginning additional procedure. 18:56:04 NOTE: This patient is undergoing an additional procedure while still in the Cardiac Cath La b. 18:56:10 Bovie ground pad applied to: RIGHT THIGH 18:56:23 2% CHLORHEXIDINE GLUCONATE WASH AND NASAL SWIPE DONE PRIOR TO PROCEDURE. 19:00:00 Upper Chest Prepped Times Two W pvc PREP and 3 minute dry time prioe to draping. 08/11/2017 8:37:34 PM Financial #: [id number] 5 of 7 Patient Name: DWIGHT TORIBIO Study #: [id number] Initial MD: Carine Caicedo Date of : 1945 Study Date: 08/11/2017 19:07:13 PACU called. Spoke to DMITRI 19:18:27 MM in. SH out. First Sponge And Instrument Count Done by Zoya Vasques, RT(R) TECH2. 19:19:18 Hypo's: 4, Sponges: 30, Bovie/scratch: 1 Sutures: 10, Blades: 1, Instruments: 26, Syveck Patches: 0 plasma blade 19:23:51 MD paged 19:25:46 MD responded 19:31:51 MD arrived. Time Out. Correct patient, procedure, procedure equipment, site and side verified with physicia n present. Time 19:32:02 concurred by MD, individual staff and SPOUT LINER. Time Out #2 - Consents verified, patient in correct position, all results are labled and displa yed, safety precautions 19:32:35 taken, antibiotics administered. Time out concurred by MD, individual staff and SPOUT LINER in procedu re 19:32:51 Case Start 19:33:01 50 mL 2% XYLOCAINE given in lab by Carine Caicedo in Left upper chest via Subcutaneous. 19:34:26 Surgical Incision Made. 19:35:23 A pocket was created at the L Upper Chest. 19:39:58 A device was explanted. 19:40:15 Vascular access was obtained in the Subclav. Vein (Lft. 19:40:20 A SAFE SHEATH, FR9, 13CM FR 9 was advanced into the Subclav. Vein (Lft using the Modified S eldinger technique. 19:41:17 Wire inserted A LIVEWIRE, QUAD, MED SWEEP FR 6 was advanced vis Subclav. Vein (Lft and placed in the CS. Plac ement was 19:41:41 visually confirmed under fluoroscopy. 19:44:23 The Coronary Sinus was manually injected with 20 cc's of contrast. OMNIPAQUE, 300 MG, 50ML 50ML used. 19:45:09 Wire inserted 19:45:10 A WIRE, [employer] PROWATER 180CM 180CM was inserted via Coronary Sinus. 19:50:46 A LEAD, ATTAIN PERFORMA STRAIGHT, 88CM 88CM was inserted and positioned in the CS/LV. 19:53:02 Lead placement verified under fluoroscopy 19:59:41 The CS/LV lead impedance and threshold is being tested. 19:59:53 The CS/LV lead was sutured to the fascia. 20:05:33 CS Quad removed. 20:05:51 A DEFIBRILLATOR, QUADRA ASSURA VVVED-DDDRV was connected and placed in the pocket. Second Sponge And Instrument Count Done by Zoya Vasques, RT(R) TECH2. 20:09:56 Hypo's: 4, Sponges: 30, Bovie/scratch: 1 Sutures: 10, Blades: 1, Instruments: , Syveck Patches: 20:11:02 Pocket flushed with antibiotic solution 20:14:43 The pocket was closed. 20:14:50 The DFT was Success at 40 Joules, ~OHMS~ Ohms lead impedance and ~TIME~ ms charge time. 40 mg LASIX given in lab by Anesthesia, SPOUT LINER via Peripheral IV. Ordered by Carine Caicedo. Reaso n: As per physicians 20:15:00 verbal order. 20:15:12 Implant Procedure was performed. 20:15:17 A Bivent ICD Implant . (Dual) 20:15:39 PACU called. Spoke to Dmitri. 08/11/2017 8:37:34 PM Financial #: [id number] 6 of 7 Patient Name: DWIGHT TORIBIO Study #: [id number] Initial MD: Carine Caicedo Date of : 1945 Study Date: 08/11/2017 20:15:56 Bedside Report will be given. Final Sponge And Instrument Count Done by Zoya Vasques, RT(R) TECH2. 20:20:48 Hypo's: 4, Sponges: 30, Bovie/scratch: 1 Sutures: 10, Blades: 1, Instruments: 26, Syveck Patches: 0 plasma blade 20:23:00 Right groin sheaths removed; pressure applied to access sites by DB. 20:23:12 Sterile dressing applied to left upper chest site. 20:23:27 Implantable Device card placed in patient's chart. 20:35:12 Sterile dressing applied to right groin site. Site wnl Assessment: Final Case, HR=80 BPM, Rhythm=p, YWMV=763/82 mmhg, Chest Pain=0, Edema=None, Color =Normal, Skin = Warm, Dry Right Pulses: Bar Ped=1 20:35:32 Left Pulses: Bar Ped=2 Lower Right Extremities: Color=Normal Neurological: State=Drowsy, EID Respiration: Resp=16 B/min, SpO2=99 %, O2=4 lpm 20:35:54 Case End 20:37:14 No case complications noted. 20:37:15 Cine recording checked. 20:37:20 Defibrillator and ground pads removed. Skin intact. 20:42:21 Patient moved to stretcher End Study - Contrast Media Used In Study Contrast Total Opened (mL) Total Used (mL) Total Wasted (mL) Omnipaque 50 20 30 End Study - Radiation Exposure Fluoro Time (minutes) 9.9 End Study - Patient Disposition Complications Transferred To Interventional Outcome No Telemetry Bed successful 08/11/2017 8:37:34 PM Financial #: [id number]
[2017-08-11] MEDS: BETHANECHOL CHL 25 MG TAB PO SCH (21:00)
[2017-08-11] MEDS: DOXYCYCLINE HYCLATE 100 MG CAP PO SCH (21:00)
[2017-08-11] MEDS: APIXABAN 5 MG TABLET PO SCH (21:00)
[2017-08-11] MEDS ORDERED: LISINOPRIL 5 MG TAB PO SCH (21:00)
[2017-08-11] MEDS: SODIUM CHLORIDE 0.9% FLUSH 10 ML FLUSH IV FLUSH SCH (21:00)
[2017-08-11] MEDS ORDERED: SUGAMMADEX SODIUM 200 MG/2 ML VIAL IV PUSH ONE (21:09)
[2017-08-11] MEDS ORDERED: *ONDANSETRON 4 MG VIAL PERIprocedural Use ONLY ONE (21:11)
--- NOTE | 2017-08-11 22:00 | RADRPT ---
EXAM DATE/TIME: 08/11/2017 21:15 [place] COMPARISON: No previous studies available for comparison. INDICATIONS : Post op pacemaker placement. MEDICAL HISTORY : Congestive heart failure. Hypercholesterolemia. Gastroparesis. Complex regionalpain syndrome. Afib x3 . HTN. GERD. Hepatitis. Skin cancer. Cardiac amyloidosis. Anxiety. Anticoagulant therapy, Eliquis. SURGICAL HISTORY : Tonsillectomy. Pacemaker. Appendectomy. Spinal cord stimulator. Cardiac ablations. CABG x2. Aorta rep air. Vasectomy. Lumber lamenectomy. ENCOUNTER: Subsequent ACUITY: 1 day PAIN SCORE: Non-responsive. LOCATION: Bilateral chest FINDINGS: Mild atelectasis/infiltrate and small effusion left lung base. No pneumothorax seen. Mild cardiomegaly unchanged. No evidence of failure. There is a left cardiac pacer/defibrillator agai n noted. Patient has had previous median sternotomy. CONCLUSION: Mild consolidation and small pleural effusion at the left lung base. Emmett Bacon MD on August 11, 2017 at 21:56 Board Certified Radiologist. This report was verified electronically.
[2017-08-11 23:00] VITALS: PULSE 80
[2017-08-11 23:49] VITALS: BP 119/75; PULSE 80; RESP 16; TEMP 97.5; O2SAT 93
[2017-08-12] MEDS: ceFAZolin 2 GM PREMIX 50 ML IV SCH ×2 (03:23→09:06)
[2017-08-12 03:37] VITALS: BP 124/78; PULSE 84; RESP 16; TEMP 97.9; O2SAT 94
[2017-08-12 07:30] VITALS: BP 123/76; PULSE 80; PULSE 82; RESP 20; TEMP 98.9; O2SAT 96
[2017-08-12 08:00] VITALS: PULSE 80
[2017-08-12] MEDS ORDERED: CEPH-460 PO (08:09)
[2017-08-12] MEDS ORDERED: DOXY1CAP91 PO (08:09)
--- NOTE | 2017-08-12 08:18 | PD.CARD.PN ---
Subjective Subjective Remarks Feels okay Objective Medications Current Medications Medications (Trade) Dose Ordered Sig/Rupal Route Start Time Stop Time Status Last Admin Lactated Ringer's 1,000 ml @ 30 mls/hr Q24H PRN IV 08/11/17 15:30 08/14/17 15:29 Sodium Chloride 500 ml @ 30 mls/hr [id number] PRN IV 08/11/17 15:30 08/14/17 15:29 (Lopressor) 25 mg [facility]NA[facility] FR[facility] PRN PO 08/11/17 15:30 08/14/17 15:29 (Betadine 5% Antisepsis Kit) 1 applic [facility]NA[facility] FRONT [facility] PRN EACH NARE 08/11/17 15:30 08/14/17 15:29 08/11/17 15:23 (Chlorhexidine 2% Cloth) 3 pack [facility] PRN TOPICAL 08/11/17 15:30 08/14/17 15:29 08/11/17 15:23 (NovoLIN R INJ) See Protocol Table ... MANA[facility] FRONT [facility]ICE PRN SQ 08/11/17 15:30 08/14/17 15:29 Sodium Chloride 1,000 ml @ 30 mls/hr Q24H IV 08/11/17 15:30 Cefazolin Sodium/ Dextrose 50 ml @ 100 mls/hr [facility] IV 08/11/17 15:30 08/14/17 15:29 Vancomycin/Sodium Chloride 200 ml @ 200 mls/hr [facility] IV 08/11/17 15:30 (Percocet 5-325 Mg) 1 tab Q4H PRN PO 08/11/17 20:30 08/12/17 03:39 (Percocet 5-325 Mg) 2 tab Q4H PRN PO 08/11/17 20:30 (Ativan Inj) 0.5 mg UNSCH PRN IV PUSH 08/11/17 20:30 08/12/17 20:29 08/12/17 03:41 (Atropine Inj) 0.5 mg UNSCH PRN IV PUSH 08/11/17 20:30 Sodium Chloride 250 ml @ 500 mls/hr ONCE PRN IV 08/11/17 20:30 08/12/17 20:29 (Zofran Inj) 4 mg Q4H PRN IV PUSH 08/11/17 20:30 (Xylocaine 1% Inj (50 ml)) 10 ml UNSCH PRN INFIL 08/11/17 20:30 08/12/17 20:29 Cefazolin Sodium/ Dextrose 50 ml @ 100 mls/hr Q8H IV 08/12/17 02:00 08/12/17 18:29 08/12/17 03:23 (NS Flush) 2 ml BID IV FLUSH 08/11/17 21:00 08/11/17 21:00 (NS Flush) 2 ml UNSCH PRN IV FLUSH 08/11/17 20:30 (Eliquis) 5 mg BID PO 08/11/17 21:00 (Urecholine) 12.5 mg QID PO 08/11/17 21:00 (Lasix) 20 mg DAILY PO 08/12/17 09:00 (Prinivil) 5 mg HS PO 08/11/17 21:00 (Roxicodone) 10 mg Q8HR PO 08/11/17 22:00 08/12/17 07:42 (Protonix) 40 mg DAILY PO 08/12/17 09:00 (Vibramycin) 100 mg BID PO 08/11/17 21:00 Miscellaneous Information ALL NURSING DEPARTME... UNSCH PRN .XX 08/11/17 19:30 08/12/17 19:29 Vital Signs / I&O Vital Signs Date Time Temp Pulse Resp B/P (MAP) Pulse Ox O2 Delivery O2 Flow Rate FiO2 08/12/17 07:30 98.9 80 20 123/76 (92) 96 08/12/17 07:30 82 08/12/17 03:37 97.9 84 16 124/78 (93) 94 08/12/17 01:17 16 08/11/17 23:49 97.5 80 16 119/75 (90) 93 08/11/17 23:00 80 08/11/17 22:30 92 16 93 Nasal Cannula 2 08/11/17 22:15 80 18 113/75 (88) 92 Nasal Cannula 2 08/11/17 22:00 80 20 118/77 (91) 95 Nasal Cannula 2 08/11/17 21:45 81 18 130/86 (101) 95 Nasal Cannula 2 08/11/17 21:30 80 16 127/84 (98) 95 Nasal Cannula 2 08/11/17 21:15 85 15 145/93 (110) 94 Nasal Cannula 2 08/11/17 21:00 80 14 137/89 (105) 95 Nasal Cannula 2 08/11/17 20:45 97.1 80 14 141/87 (105) 95 Nasal Cannula 08/11/17 15:32 93 18 126/92 (103) 97 I/O 08/11/17 08/11/17 08/11/17 08/12/17 08/12/17 08/12/17 07:00 15:00 23:00 07:00 15:00 23:00 Intake Total 1000 ml 290 ml Output Total 250 ml 240 ml Balance 750 ml 50 ml Intake Oral 240 ml IV Total 50 ml Other 1000 ml Output Urine Total 250 ml 240 ml # Voids 3 Physical Exam GENERAL: Well-nourished, well-developed patient. SKIN: Warm and dry. Left chest wall incision well approximated without erythema or drainage. Groin site soft without bruising or bleeding. HEAD: Normocephalic. EYES: No scleral icterus. No injection or drainage. NECK: Supple, trachea midline. No JVD or lymphadenopathy. CARDIOVASCULAR: Regular rate and rhythm without murmurs, gallops, or rubs. RESPIRATORY: Breath sounds equal bilaterally. No accessory muscle use. GASTROINTESTINAL: Abdomen soft, non-tender, nondistended. EXTREMITIES: No cyanosis, or edema. NEUROLOGICAL: Awake, alert, and oriented x 3. Non-focal. Laboratory Laboratory Tests Test 08/11/17 15:20 White Blood Count 6.5 TH/MM3 Red Blood Count 5.96 MIL/MM3 Hemoglobin 16.8 GM/DL Hematocrit 51.0 % Mean Corpuscular Volume 85.5 FL Mean Corpuscular Hemoglobin 28.3 PG Mean Corpuscular Hemoglobin Concent 33.0 % Red Cell Distribution Width 14.8 % Platelet Count 206 TH/MM3 Mean Platelet Volume 9.5 FL Prothrombin Time 11.4 SEC Prothromb Time International Ratio 1.1 RATIO Activated Partial Thromboplast Time 28.7 SEC Blood Urea Nitrogen 16 MG/DL Creatinine 1.40 MG/DL Random Glucose 110 MG/DL Calcium Level 10.5 MG/DL Sodium Level 142 MEQ/L Potassium Level 3.8 MEQ/L Chloride Level 104 MEQ/L Carbon Dioxide Level 29.3 MEQ/L Anion Gap 9 MEQ/L Estimat Glomerular Filtration Rate 50 ML/MIN Imaging Last Impressions Chest X-Ray 08/11/17 0000 Signed Impressions: Service Date/Time: Friday, August 11, 2017 21:15 - CONCLUSION: Mild consolidation and small pleural effusion at the left lung base. Emmett Bacon MD Assessment and Plan Problem List: (1) Atrial fibrillation ICD Codes: I48.91 - Unspecified atrial fibrillation Plan: Pacing appropriately. Cardioverted during procedure yesterday to sinus rhythm. 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 Prescription filled. (3) History of implantable cardioverter-defibrillator (ICD) placement ICD Codes: Z95.810 - Presence of automatic (implantable) cardiac defibrillator Status: Chronic Plan: Stable status post BIV implant. Discharge home with a copy of Dr. Caicedo' s permanent pacemaker discharge instructions, per my discussion with him. Follow-up with him in 2 weeks. Pauly Romero Aug 12, 2017 08:18
[2017-08-12 09:00] VITALS: PULSE 80
[2017-08-12] MEDS ORDERED: PANTOPRAZOLE SOD 40 MG DELAYED RELEASE TAB PO SCH (09:00)
[2017-08-12] MEDS ORDERED: FUROSEMIDE 20 MG TAB PO SCH (09:00)
[2017-08-12] MEDS: SODIUM CHLORIDE 0.9% FLUSH 10 ML FLUSH IV FLUSH SCH (09:06)
[2017-08-12] MEDS: DOXYCYCLINE HYCLATE 100 MG CAP PO SCH (09:06)
[2017-08-12] MEDS: BETHANECHOL CHL 25 MG TAB PO SCH (09:07)
[2017-08-12] MEDS: APIXABAN 5 MG TABLET PO SCH (09:07)
[2017-08-12 10:00] VITALS: PULSE 80
--- NOTE | 2017-08-12 16:32 | EKG ---
Date Performed: 08/11/2017 Time Performed: 15:33:30 PTAGE: 72 years EKG: Sinus rhythm with PAC(s) with 1st degree A-V block. Indeterminate axis IV conduction defect Possible anteroseptal infarct - age undetermined Lateral T wave changes are nonspecific Low QRS voltages in limb leads Abn ormal ECG PREVIOUS TRACING : 07/02/2017 22.06 Since the previous tracing, no significant change noted DOCTOR: Leo Jc Interpretating Date/Time 08/12/2017 16:28:10
--- NOTE | 2017-09-07 15:46 | MA ---
cc: Carine Caicedo [place] [facility] [place] DATE: 08/11/2017 PROCEDURE PERFORMED: Electrophysiologic study, CS cannulation, 3-D mapping, AV node ablation and defibrillator reprogramming. INDICATIONS: Mr. Saldana is a 72-year-old gentleman with atrial fibrillation and congestive heart failure, multiple hospitalizations for left atrial tachycardia, rate very difficult to control, not a good candidate at this point for re-do ablation, to undergo AV node modification and upgrade of defibrillator to biventricular pacer defibrillator. The risks, the nature and the benefits of the procedure were clearly stated to him. Risks include pneumothorax, cardiac perforation, stroke and even . He and his understand and agreed to proceed. PROCEDURE: After written informed consent was obtained, the patient was brought to the EP lab where he was prepped and draped in the usual surgical fashion. Conscious sedation was initiated and maintained throughout the procedure by the anesthesiologist. Once sedation was verified, the right inguinal area was entered anesthetized with 2% Xylocaine. Using modified Seldinger technique, the right femoral vein was cannulated on 4 occasions, four guidewires were advanced over the wires. Two 5, one 6 and an 8-[place] Hemaquet were advanced. Then, under fluoroscopic guidance through the 5 and 6 -[place] Hemaquet, three 5-[place] Tommie curve quadripolar electrophysiology catheters were advanced and placed on the His, right ventricular apex and coronary sinus. Basic interval was measured. The patient was in atrial fibrillation, atrial tachyarrhythmia. Then the defibrillator was reprogrammed to VVI 40, defibrillator off. Then, through the 8-[place] Hemaquet, a Cordis-Abrams F-curve, 8 mm mapping and radiofrequency ablation catheter was advanced. Using Niko Niko endocardial solution mapping system, a 3-dimensional configuration of the right atrium was obtained. Then, the catheter was placed at the tricuspid valve annulus. When this was marked, radiofrequency energy was delivered. The patient was in junctional rhythm. Further burn was elevated in the area. Then ventricular pacing protocol was performed at 800 millisecond cycle length. Then the patient was observed. Isuprel was introduced at 5 mcg and no conduction resumed. Post-isuprel, no conduction resumed. At that point, the procedure was complete. All catheters were removed. The patient is going to be kept on the table and the defibrillator will be upgraded to a biventricular pacer defibrillator. The patient tolerated the procedure. Blood loss minimal. 1. ELECTROCARDIOGRAM AT BASELINE: The patient was in atrial fibrillation. Postprocedure, the patient is V-pacing. 2. BASIC INTERVAL: Base cycle length was around 780 milliseconds. 3. TACHYARRHYTHMIA: AV node was mapped and ablated. Ablation was successful. CONCLUSION: Successful electrophysiology study, mapping and radiofrequency ablation of AV node. COMMENT AND RECOMMENDATIONS: The patient will be kept on the table and the defibrillator will be upgraded to a biventricular pacer defibrillator. No incident reported. The patient tolerated the procedure. MD KRYSTAL Adair/SB , 03:06 PM , 03:45 PM
--- NOTE | 2017-09-07 16:13 | MP ---
cc: Carine Caicedo MD DATE OF OPERATION: 08/11/2017 PROCEDURE PERFORMED: Upgrade of defibrillator to biventricular pacer defibrillator. INDICATIONS: Mr. Saldana is a 72-year-old gentleman with atrial fibrillation, congestive heart failure, heart rate of 84 symptomatic, status post AV node ablation will undergo upgrade of dual-chamber defibrillator to biventricular pacer defibrillator. The risks, the nature and the benefits of the procedure are clearly stated to him. Risks include pneumothorax, cardiac perforation, stroke and even . He understood and agreed to proceed. PROCEDURE: As written informed consent was obtained prior to electrophysiology study, the patient was kept on the table where he was prepped and draped in the usual sterile fashion. Conscious sedation was initiated and maintained throughout the procedure by anesthesiologist. Once sedation verified, the left infraclavicular area over the existing generator was anesthetized with 2% Xylocaine. Using a #11 blade scalpel, a 3 cm incision was made over the existing generator. The incision was taken down to the deep fascial layer using Bovie cautery and blunt dissection. Once the exposed generator was removed from the pocket, scar tissue was removed around the lead. Pocket was expanded. Pocket revision was performed. Then, using modified Seldinger technique, the left subclavian vein was cannulated on one occasion and a Glidewire was advanced. A 2-0 Vicryl suture was placed around the wire to prevent backbleeding. At this point, over the wire, a 9-Armenian dilator introducer was advanced. As the dilator and wire were removed, the CS cannulation sheath was advanced. Through the sheath, a quadripolar steerable catheter was advanced. After multiple manipulations coronary sinus was cannulated. CS venography showed adequate lateral branch. Using a Prowater wire, the lateral branch was cannulated and the lead was advanced over the wire. After adequate pacing and sensing threshold was obtained, the palmira introducer was removed. Then, the cutter introducer was removed, and the lead was secured in the pocket using #2 Ethibond suture. At that point, the pocket was copiously irrigated using antibiotic solution. The defibrillator was removed and the biventricular pacer defibrillator was connected to the leads. I did proceed with wound closure. The deep fascial layer was approximated using #2-0 Vicryl suture in a continuous fashion. The subcutaneous layer was approximated using #2-0 Vicryl suture in a continuous fashion. The subcuticular layer was approximated using #2-0 Vicryl suture in a continuous fashion. Dermabond adhesive was applied to the wound, followed by sterile pressure dressing. There was no complication. The patient tolerated the procedure. Blood loss minimal. IMPRESSION: 1. Explanted hardware. The explanted defibrillator generator is a [employer], model number [id number], serial number [id number]. 2. Implanted hardware. The implanted biventricular pacer defibrillator is a [employer], model number [id number], serial number [id number]. The left ventricular pacing sensing lead is a [employer]uvo, model number 4398-88, serial number is [id number]. 3. Threshold. The right atrial pacing threshold cannot be measured. The patient was in atrial fibrillation. at 2 millivolt, lead impedance 560 ohms. The right ventricular pacing threshold in bipolar mode was 0.75 volts at 0.5 milliseconds, lead impedance 330 ohms. R-wave could not be measured. The patient is pacemaker dependent. The left ventricular pacing threshold in bipolar mode was 0.75 volt at 0.5 millisecond, lead impedance 800 ohms. 4. Setting. The device set in VVI 80. Will decrease VVI 70 at next office visit. Upper rate limit 110 beats per minute. by 40 milliseconds. Defibrillatory portion for 2 zones, 1 zone for ventricular tachycardia between 170-250 beats per minute. Initial therapy consists of 1 burst of ATP, 1 ramp, 81% 10 pulse, 70 second decremental, followed by 20, then 30, and a second shock of 40 joule defibrillatory shock. Second zone for ventricular fibrillation above 240 beats per minute, first therapy at 30 and a second shock at 40 joule defibrillator shock. CONCLUSION: Successful defibrillator removal. Successful biventricular pacer defibrillator insertion, new LV lead and pocket revision. COMMENT AND RECOMMENDATION: The patient is going to be transferred to the recovery room. He will be observed. When stable in the morning, can be discharged home. MD KRYSTAL Adair/TL , 03:13 PM , 04:11 PM
== END 2017-08-12 11:35 | disposition home or self-care (01) ==
LOC: HDOC 14:44 → HDIC 14:46 → HCPC 22:43 → HDOC 08-12 11:35
PROVIDERS: ATTEND Internal Medicine Interventional Cardiology
DX: Z45.02 Encounter for adjustment and management of automatic implantable cardiac defibrillator (principal); I11.0 Hypertensive heart disease with heart failure; I50.9 Heart failure, unspecified; I47.1 Supraventricular tachycardia; R06.00 Dyspnea, unspecified; R00.2 Palpitations; I48.91 Unspecified atrial fibrillation; I44.7 Left bundle-branch block, unspecified; I25.10 Atherosclerotic heart disease of native coronary artery without angina pectoris
CPT/HCPCS: 00530; 33225; 33249; 71045; 80048; 85027; 85610; 85730; 86850; 86900; 86901; 93005; 93620; 93623; 93650; C1730; C1732; C1769; C1882; C1900; C2630; J0690; J1100; J1644; J1940; J2060; J2250; J2370; J2405; J2710; J3010; J3370; 33224; J2720